=== PATIENT | female | born 1970 | race Caucasian/White ===

== ENCOUNTER 2017-05-01 05:53 | Day surgery (SDC) | payer OTHER, SELFPAY ==
[2017-05-01 06:19] LABS: Internal QC Validated? YES +Cl - CLEAR BKGD; Pregnancy, Urine Negative Negative
[2017-05-01 06:20] LABS: Hematocrit 38.7 % (37-47); Mean Corpuscular Hgb 30.2 pg (27.0-32.0); Mean Corpuscular Volume 97.2 fL (81-99); Mean Platelet Vol. 8.9 fl (6.2-12.0); Platelet Count 328 K/mm3 (150-450); RBC Distribution Width CV 13.4 % (11.6-14.6); RBC Distribution Width SD 47.6 fl (35.1-43.9); Red Blood Count 3.98 M/mm3 (4.2-5.4); White Blood Count 7.2 K/mm3 (4.4-11.0)
[2017-05-01 06:21] LABS: Scan Indicated on CBC? Y/N NO
[2017-05-01 06:56] VITALS: BP 131/83; PULSE 82; RESP 16; TEMP 37.4; O2SAT 100; BMI 35.5
--- NOTE | 2017-05-01 07:30 | EMB_PTH ---
PATIENT: AP LOBATO LOC: [facility] [place] U#:[id number] AGE/SX: 46/F ROOM: RE05/01/[address]: Dr. Pia Prakash MD : 1970 BED: DIS: 05/01/2017 SPEC #: [id number] RECD: 05/01/17 08:41 STATUS: ZOE ALYSSIA #: [id number] JAYLA: 05/01/17 07:[address]: Pia Prakash DEPT: SURGICAL PATHOLOGY RECD BY: Don Naranjo ENTERED: 05/01/17 11:43 SP TYPE: ENDOM BX/C OT DR: Dr. Stephen Black MD Tissues: Endometrium, NOS Procedures: Surgery Specimen Level IV HEADER OPERATION: Hysteroscopy, dilation and curettage PRE-OP DIAGNOSIS: Excessive bleeding in the premenopausal period, thickened endometrium TISSUE SUBMITTED: Endometrial curettings MICROSCOPIC DIAGNOSIS Endometrial curettings: Secretory endometrium. SJ:christiano 05/02/17 MICROSCOPIC DESCRIPTION Slides are reviewed. GROSS DESCRIPTION Received in fixative is one container labeled with the patient's name and designated endometrial curettings. The specimen consists of multiple irregular fragments of pink-miller soft tissue that in aggregate measure 7 x 5 x 0.2 cm. The specimen is totally submitted in four cassettes. / AM:christiano 05/01/17 TC:4 CPT: 19873
--- NOTE | 2017-05-01 08:00 | PCM.DC.D&C ---
Discharge Diet: No Restrictions Discharge Activity: May not drive while taking narcotic pain medications., May Shower, May Take a Tub Bath May resume sexual activity in: 1 week Lifting Restrictions: OK to resume as tolerated Call your doctor if you observe: Fever of 101 or Higher, Inability to have a bowel movement, Using more than one pad per hour, Uncontrolled pain Allergies/Adverse Reactions: Allergies amoxicillin [From Augmentin] Allergy (Verified 04/29/17 14:21) Diarrhea clavulanic acid [From Augmentin] Allergy (Verified 04/29/17 14:21) Diarrhea Medications to take at Discharge Fluticasone 110 Mcg [Flovent 110 Mcg] 2 puff INHALATION BID 02/27/16 Levothyroxine [Synthroid] 175 mcg PO DAILY 02/27/16 Sertraline HCl [Zoloft] 50 mg PO DAILY 02/27/16 fluticasone 50 mcg/actuation nasal spray,suspension 50 mcg INTRANASAL ONCE 04/14/17 Albuterol Inhaler [Ventolin Hfa] 1 - 2 puff INHALATION Q4H PRN PRN 04/29/17 Naproxen 500 mg PO BID PRN 04/29/17 Acetaminophen/Codeine #3 [Tylenol#3] 1 tablet PO Q4H PRN PRN 2 Days #10 tablet 05/01/17 The following prescriptions were given: Acetaminophen/Codeine #3 [Tylenol#3] 1 tablet PO Q4H PRN PRN 2 Days #10 tablet PRN Reason: Mod-Severe Pain (4-10/10) Primary Care Physician: Stephen Black MD [Primary Care Provider] - Please Follow Up With: Pia Prakash MD - [phone] When: 2 wks
--- NOTE | 2017-05-01 08:03 | DCINST_ITS ---
Discharge Diet: No Restrictions Discharge Activity: May not drive while taking narcotic pain medications., May Shower, May Take a Tub Bath May resume sexual activity in: 1 week Lifting Restrictions: OK to resume as tolerated Call your doctor if you observe: Fever of 101 or Higher, Inability to have a bowel movement, Using more than one pad per hour, Uncontrolled pain Allergies/Adverse Reactions: Allergies amoxicillin [From Augmentin] Allergy (Verified 04/29/17 14:21) Diarrhea clavulanic acid [From Augmentin] Allergy (Verified 04/29/17 14:21) Diarrhea Medications to take at Discharge Fluticasone 110 Mcg [Flovent 110 Mcg] 2 puff INHALATION BID 02/27/16 Levothyroxine [Synthroid] 175 mcg PO DAILY 02/27/16 Sertraline HCl [Zoloft] 50 mg PO DAILY 02/27/16 fluticasone 50 mcg/actuation nasal spray,suspension 50 mcg INTRANASAL ONCE 04/14 Albuterol Inhaler [Ventolin Hfa] 1 - 2 puff INHALATION Q4H PRN PRN 04/29/17 Naproxen 500 mg PO BID PRN 04/29/17 Acetaminophen/Codeine #3 [Tylenol#3] 1 tablet PO Q4H PRN PRN 2 Days #10 tablet 05/01/17 The following prescriptions were given: Acetaminophen/Codeine #3 [Tylenol#3] 1 tablet PO Q4H PRN PRN 2 Days #10 tablet PRN Reason: Mod-Severe Pain (4-10/10) Primary Care Physician: Stephen Black MD [Primary Care Provider] - Please Follow Up With: Pia Prakash MD - [phone] When: 2 wks
[2017-05-01 08:06] VITALS: BP 130/75; BP 131/83; PULSE 80; RESP 16; TEMP 36.6; O2SAT 97
[2017-05-01 08:10] VITALS: BP 122/70; BP 131/83; PULSE 78; RESP 16; O2SAT 97
[2017-05-01 08:15] VITALS: BP 131/80; BP 131/83; PULSE 75; RESP 14; O2SAT 95
[2017-05-01 08:20] VITALS: BP 131/83; BP 132/75; PULSE 78; RESP 16; TEMP 36.7; O2SAT 95
[2017-05-01 08:43] VITALS: BP 131/83
--- NOTE | 2017-05-01 18:49 | PCM.OP.BLANK ---
Operative Report Date of Procedure: 05/01/17 PROCEDURE: Hysteroscopy, Dilation and curettage, Possible endometrial polypectomy Preoperative Diagnosis: Abnormal uterine bleeding Thickened endometrial stripe on pelvic ultrasound Postop diagnosis: Abnormal uterine bleeding Thickened endometrial stripe on pelvic ultrasound No endometrial polyp noted Anesthesia: MAC IV sedation Russell Capps MD 10 cc 1% lidocaine paracervical block (Haylee Prakash) Surgeon: Pia Prakash MD EBL: Minimal for case Drains: Red Gomez, minimal clear yellow urine Complications: none Fluids: replacement Findings: Very fluffy appearing appearing endometrium. Neither tubal ostia visualized No polyp noted. No submucous fibroids noted. Narrative account After the R,B,Alternatives of the procedure were reviewed with the patient , informed consent was obtained. The patient was taken to the operating room with an IV running and placed in dorsal supine position of the operating table. She was given MAC IV sedation and repositioned to the dorsal lithotomy position and prepped and draped in the usual sterile fashion. A graves speculum was placed into the vagina and the cervix was brought into view. A paracervical block was then placed: the cervix was instilled with 10 cc of 1% lidocaine using a 20 G spinal needle. A single toothed tenaculum was applied to the anterior lip of the cervix. The uterus sounded to 13 cm and was slightly anteverted. The cervix was sequentially dilated to allow admission of the hysteroscope into the endometrial cavity. The hysteroscopy was performed with findings noted as above. The view was suboptimal due to both fluffy endometrium and technical issue with the scope. There was NO endometrial polyp noted. A sharp curettage was performed and a generous amount of tissue was removed and set aside for later pathology review. Several additional passes were conducted with the sharp curette tip advanced through the cervix to the uterine fundus . Good Crei was noted in all quadrants. The multiple pieces of tissue were set aside for later pathology review. Excellent hemostasis was noted. The single toothed tenaculum was removed from the cervix and a sponge stick was used to remove any remaining tissue and blood from the upper vagina and cervix. The procedure was terminated. The speculum was removed. The patient was returned to dorsal supine position and awakened from IV sedation and transferred to her recovery room bed in stable condition after tolerating the procedure well. Sponge, lap, needle and instrument counts were correct x two. medications given intraoperatively included 10 cc of 1% lidocaine without epinephrine instilled as a paracervical block. Toradol 30 mg IV x one was also given For a complete listing of the medications given intraoperatively, see the anesthesia record.
== END 2017-05-01 09:14 | disposition home or self-care (01) ==
LOC: SDC 05:53 → AC 05:54
PROVIDERS: Anesthesiology; Family Provider Family Medicine; PCP Family Medicine; Visit Provider Obstetrics & Gynecology
PROC: 0UDB8ZZ Extraction of Endometrium, Via Natural or Artificial Opening Endoscopic (ICD-10-PCS; CPT 58558; principal; 2017-05-01 07:20)
DX: N85.8 Other specified noninflammatory disorders of uterus (principal); N93.9 Abnormal uterine and vaginal bleeding, unspecified; N92.4 Excessive bleeding in the premenopausal period; R93.8 Abnormal findings on diagnostic imaging of other specified body structures; E03.9 Hypothyroidism, unspecified; E22.1 Hyperprolactinemia; D35.2 Benign neoplasm of pituitary gland; J45.909 Unspecified asthma, uncomplicated; F41.9 Anxiety disorder, unspecified; K76.89 Other specified diseases of liver; Z79.899 Other long term (current) drug therapy; Z85.820 Personal history of malignant melanoma of skin
CPT/HCPCS: 00952; 58558; 36415; 81025; 85027; 88305; J3010; J7120; J2405

== ENCOUNTER → 2017-09-25 16:53 | Outpatient (CLI) | payer OTHER, SELFPAY ==
[2017-09-25 17:45] LABS: Absolute Lymphocyte Count 2.89 X10^3/ul (0.83-4.51); Absolute Neutrophil Count 3.4 X10^3/uL (2.0-7.7); Basophil# 0.02 X10^3/uL; Basophil% 0.3 % (0-1); Eosinophil# 0.22 X10^3/uL; Eosinophils% 3.2 % (0-5); Hematocrit 40.5 % (37-47); Hemoglobin 12.7 g/dl (12.0-15.0); Lymphocyte # 2.89 X10^3/ul; Lymphocyte % 42.1 % (19-41); Mean Corp Hgb Conc 31.4 g/gl (32-36); Mean Corpuscular Hgb 30.5 pg (27.0-32.0); Mean Corpuscular Volume 97.1 fL (81-99); Mean Platelet Vol. 9.1 fl (6.2-12.0); Monocyte% 4.4 % (0-10); Neutrophil # 3.42 X10^3/uL (2.7-7.7); Neutrophil % 49.9 % (47-70); Platelet Count 310 K/mm3 (150-450); RBC Distribution Width CV 13.8 % (11.6-14.6); RBC Distribution Width SD 49.1 fl (35.1-43.9); Red Blood Count 4.17 M/mm3 (4.2-5.4); White Blood Count 6.9 K/mm3 (4.4-11.0)
[2017-09-25 17:53] LABS: Color, Urine Yellow (Yellow); Glucose, Dipstick Normal (Normal); Ketone-Dipstick Negative (Negative); Leukocyte Esterase-Dipstick 25 /ul (Negative); Nitrite-Dipstick Negative (Negative); Occult Blood-Urine Negative /ul (Negative); Protein-Dipstick 15 mg/dl (Negative); Urine Bilirubin Dipstick Negative (Negative); Urine Clarity Clear (Clear); Urine Urobilinogen Normal (Normal)
[2017-09-25 18:10] LABS: COTININE Drug Screen Negative (<200 ng/mL)
[2017-09-25 18:20] LABS: ALB/GLOB Ratio 0.9 RATIO (0.9-2.4); AST(SGOT) 19 U/L (15-37); Alanine Aminotransfer ALT/SGPT 27 U/L (13-56); Albumin, Serum 3.8 g/dL (3.2-5.0); Alkaline Phosphatase 51 U/L (45-117); Anion Gap 6 (5-15); BUN 10 mg/dL (7-18); BUN/Creat Ratio 10.1 RATIO (10-20); Bilirubin, Direct 0.09 mg/dL (0.00-0.30); Calcium,Total 8.8 mg/dL (8.5-10.1); Chloride 106 mmol/L (98-107); Cholesterol 249 mg/dL (200); Creatinine, Serum 0.99 mg/dL (0.55-1.02); EST Glomerular Filtration Rate 63 mL/min (>60); Est Glom Filt Rate - Afr Amer 76 mL/min (>60); Globulin 4.2 g/dL (2.2-4.2); Glucose 86 mg/dL (74-106); High Density Lipoprotein 44 mg/dL; LDH 207 U/L (84-246); Phosphorus 3.2 mg/dL (2.5-4.9); Potassium 3.7 mmol/L (3.5-5.1); Sodium Level 141 mmol/L (136-145); Triglycerides 237 mg/dL; Uric Acid 5.7 mg/dL (2.6-6.0); Very Low Density Lipoprotein 47 mg/dL (5-40)
[2017-09-27 17:09] LABS: T4 Total, Thyroxin 2.7 ug/dL (4.8-13.9); Thyroid Stim Hormone (TSH) > 500.00 uIU/mL (0.358-3.74)
== END ==
LOC: LAB.FUTURE 16:55 → MTLAB 16:56
PROVIDERS: Family Provider Family Medicine; PCP Family Medicine; Visit Provider Nurse Practitioner Primary Care
DX: E03.9 Hypothyroidism, unspecified (principal)
CPT/HCPCS: 80307; 84436; 84443

== ENCOUNTER → 2018-07-16 14:46 | Outpatient (CLI) | payer OTHER, SELFPAY ==
--- NOTE | 2018-07-16 04:30 | LES_PTH ---
PATIENT: AP LOBATO LOC: [facility] U#:[id number] AGE/SX: 54/F ROOM: RE07/16/[address]: Dr. Gallo Gonzalez MD : 1970 BED: DIS: SPEC #: [id number] RECD: 07/17/18 09:54 STATUS: ZOE ALYSSIA #: [id number] JAYLA: 07/16/18 04:[address]: Gallo Gonzalez DEPT: SURGICAL PATHOLOGY RECD BY: Chelsea Damian ENTERED: 07/17/18 15:03 SP TYPE: Lesion OTHR DR: Dr. Stephen Black MD Tissues: Skin of eyelid, NOS Procedures: Surgery Specimen Level IV HEADER OPERATION: Removal of lesion FAMILIA PRE-OP DIAGNOSIS: Enlarging x2 years; possible cyst or chronic chalazion TISSUE SUBMITTED: Lateral left upper eyelid lesion MICROSCOPIC DIAGNOSIS Skin lesion left lateral upper eyelid, biopsy: Polypoid fragment of benign squamous mucosa with mild chronic folliculitis and minimal reactive fibrosis of dermis. See comment. AM:christiano 07/22/18 COMMENT There is no evidence of malignancy. Clinical correlation is suggested. MICROSCOPIC DESCRIPTION Slides are reviewed. GROSS DESCRIPTION Received in fixative is one container labeled with the patient's name and designated lateral left upper eyelid lesion. The specimen consists of a brown fragment of soft tissue/possible skin measuring 0.2 x 0.2 x 0.1 cm. The specimen is totally submitted in one cassette. / CE:christiano 07/17/18 TC:5 CPT: 32635
== END ==
PROVIDERS: Family Provider Family Medicine; PCP Family Medicine; Visit Provider Ophthalmology
DX: H02.9 Unspecified disorder of eyelid (principal)
CPT/HCPCS: 88305

== ENCOUNTER 2018-09-07 19:27 | Emergency (ER) | payer OTHER, SELFPAY ==
[2018-09-07 19:28] VITALS: BP 142/92; PULSE 89; RESP 17; RESP 18; TEMP 36.2; O2SAT 97; O2SAT 98; BMI 34.4
--- NOTE | 2018-09-07 19:47 | ED.DCSUM_ITS ---
- ER Visit Summary Date of Service: 09/07/18 Chief Complaint: Left shoulder pain. History of Present Illness: The patient is a 48 F history of asthma, hypothyroidism and chronic intermittent left shoulder pain from impingement syndrome. She has had this for years. She had physical therapy before. She seen orthopedics before for this. Has been doing well but today she is noticed discomfort. She is left-hand dominant. At times that flares this up. No exertional chest pain no shortness of breath. Physical Examination: Well-appearing middle-aged female. No acute distress. Vital signs are stable afebrile. HEENT exam unremarkable. Neck nontender. Lungs clear to auscultation bilaterally. Heart regular rhythm no murmur. Abdomen soft nontender. Normal bowel sounds no peritoneal signs. Extremities moves all 4. Neurovascular intact. Out of 5 site auditor strength bilaterally. Strong radial pulse on the left. She has full range of motion left shoulder, elbow and wrist. This area. There is no ecchymosis or bruising. No signs of trauma. No redness or warmth. No signs of a rotator cuff injury. No bony deformity. No swelling. Neurologic exam normal. Test Results: None. She has had prior x-rays. Emergency Department Course and Treatment: Patient really just wants something to help her with her discomfort so she can go back to work. Treated with IM Toradol. Treatment Plan: Motrin for pain and inflammation. Follow-up with orthopedics. Disposition: Discharge Impression: Acute on chronic left shoulder pain history of impingement syndrome This note was generated with [employer] dictation software. It may contain incorrect words, spelling, and punctuation that were not noted in review of the chart prior to signing ED Disposition - Plan for ED Patient: Referrals: Stephen Black MD [Primary Care Provider] -
--- NOTE | 2018-09-07 19:50 | ED.DEP ---
ED Disposition - Plan for ED Patient: Disposition: Home or Assisted Living Referrals: Rachel Melvin DO [STAFF PHYSICIAN] - 1 Week if not improving Additional Instructions: Motrin for pain and inflammation. Follow-up with orthopedic physician.
[2018-09-07] MEDS: Ketorolac 60 MG/2 ML Vial IM (20:02)
[2018-09-07 20:28] VITALS: RESP 16
== END 2018-09-07 20:29 | disposition home or self-care (01) ==
PROVIDERS: Emergency Provider Emergency Medicine; Family Provider Family Medicine; PCP Family Medicine
DX: M25.512 Pain in left shoulder (principal); G89.29 Other chronic pain; M75.42 Impingement syndrome of left shoulder; J45.909 Unspecified asthma, uncomplicated; E03.9 Hypothyroidism, unspecified; Z79.899 Other long term (current) drug therapy
CPT/HCPCS: 96372; 99282

== ENCOUNTER → 2018-09-10 10:05 | Outpatient (CLI) | payer OTHER, SELFPAY ==
[2018-09-10 10:00] VITALS: BMI 34.4
--- NOTE | 2018-09-10 10:07 | RAD_ITS ---
STUDY: X-RAY - CERVICAL SPINE REASON FOR EXAM: Female, 48 years old. Shoulder pain TECHNIQUE: 6 view(s) of the cervical spine were obtained. COMPARISON: None FINDINGS: Normal anterior atlantoaxial articulation. Normal odontoid process. Normal cervical lordosis. Normal vertebral bodies and endplates. Normal disc space heights. Normal visualized intervertebral neuroforamina. The soft tissue structures are unremarkable. RAD/Cerv Spine 4 or 5 Views IMPRESSION: Normal x-ray examination of the visualized cervical spine. Electronically Signed: Ayo Waters MD at 23:21 EDT , Service support ,
--- NOTE | 2018-09-10 10:07 | RAD_ITS ---
STUDY: X-RAY - LEFT SHOULDER REASON FOR EXAM: Female, 48 years old. Left shoulder pain TECHNIQUE: 4 view(s) of the shoulder. COMPARISON: February 27, 2016 FINDINGS: Normal glenohumeral articulation. Normal acromioclavicular joint. Normal acromion. Normal humeral head and visualized proximal humerus. The soft tissue structures are unremarkable. Normal visualized pulmonary apex. RAD/Shoulder min 2 Views IMPRESSION: Normal x-ray examination of the shoulder. Electronically Signed: Ayo Waters MD at 23:23 EDT , Service support ,
== END ==
PROVIDERS: Family Provider Family Medicine; PCP Family Medicine; Referring Provider Orthopaedic Surgery; Visit Provider Orthopaedic Surgery
DX: M25.512 Pain in left shoulder (principal); M54.2 Cervicalgia
CPT/HCPCS: 72050; 73030

== ENCOUNTER → 2018-11-18 11:44 | Outpatient (CLI) | payer OTHER, SELFPAY ==
[2018-09-10 10:00] VITALS: BMI 34.4
[2018-11-18 13:55] LABS: Color, Urine Yellow (Yellow); Glucose, Dipstick Normal (Normal); Ketone-Dipstick 5 mg/dl (Negative); Leukocyte Esterase-Dipstick 25 /ul (Negative); Nitrite-Dipstick Negative (Negative); Occult Blood-Urine 10 /ul (Negative); Protein-Dipstick Negative (Negative); Urine Bilirubin Dipstick Negative (Negative); Urine Clarity Clear (Clear); Urine Urobilinogen Normal (Normal)
[2018-11-18 13:57] LABS: Absolute Lymphocyte Count 3.32 X10^3/uL (0.83-4.51); Absolute Neutrophil Count 3.9 X10^3/uL (2.0-7.7); Basophil# 0.03 X10^3/uL; Basophil% 0.4 % (0-1); Eosinophils% 2.5 % (0-5); Hematocrit 41.5 % (37-47); Hemoglobin 13.3 g/dL (12.0-15.0); Lymphocyte # 3.32 X10^3/ul; Lymphocyte % 41.9 % (19-41); Mean Corpuscular Hgb 31.8 pg (27.0-32.0); Mean Corpuscular Volume 99.3 fL (81-99); Mean Platelet Vol. 9.2 fl (6.2-12.0); Monocyte# 0.44 X10^3/uL; Monocyte% 5.6 % (0-10); NRBC Flagged by Analyzer 0 % (0-5); Neutrophil % 49.2 % (47-70); Platelet Count 299 K/mm3 (150-450); RBC Distribution Width CV 12.3 % (11.6-14.6); RBC Distribution Width SD 45.4 fl (35.1-43.9); Red Blood Count 4.18 M/mm3 (4.2-5.4); White Blood Count 7.9 K/mm3 (4.4-11.0)
[2018-11-18 14:16] LABS: ALB/GLOB Ratio 0.9 RATIO (0.9-2.4); AST(SGOT) 17 U/L (15-37); Alanine Aminotransfer ALT/SGPT 33 U/L (13-56); Albumin, Serum 3.6 g/dL (3.2-5.0); Alkaline Phosphatase 55 U/L (45-117); Anion Gap 7 (5-15); BUN 13 mg/dL (7-18); Bilirubin, Direct 0.07 mg/dL (0.00-0.30); Calcium,Total 9.1 mg/dL (8.5-10.1); Chloride 106 mmol/L (98-107); Cholesterol 252 mg/dL (200); Creatinine, Serum 0.93 mg/dL (0.55-1.02); EST Glomerular Filtration Rate 68 mL/min (>60); Est Glom Filt Rate - Afr Amer 82 mL/min (>60); Globulin 4.1 g/dL (2.2-4.2); Glucose 87 mg/dL (74-106); High Density Lipoprotein 50 mg/dL; LDH 197 U/L (84-246); Phosphorus 3.5 mg/dL (2.5-4.9); Potassium 3.9 mmol/L (3.5-5.1); Protein, Total 7.7 g/dL (6.4-8.2); Sodium Level 141 mmol/L (136-145); Triglycerides 198 mg/dL; Uric Acid 5.9 mg/dL (2.6-6.0); Very Low Density Lipoprotein 40 mg/dL (5-40)
[2018-11-18 15:30] LABS: Cholesterol 254 mg/dL (200); Glucose 86 mg/dL (74-106); High Density Lipoprotein 50 mg/dL; Triglycerides 201 mg/dL; Very Low Density Lipoprotein 40 mg/dL (5-40)
== END ==
PROVIDERS: Family Provider Family Medicine; PCP Family Medicine; Referring Provider Family Medicine; Visit Provider Family Medicine
DX: Z00.00 Encounter for general adult medical examination without abnormal findings (principal); E03.9 Hypothyroidism, unspecified; E78.5 Hyperlipidemia, unspecified
CPT/HCPCS: 36415; 80061; 82784; 82947; 83516; 84443; 84550; 86255

== ENCOUNTER 2018-11-28 12:30 | Outpatient (RCR) | payer OTHER, SELFPAY ==
[2018-09-10 10:00] VITALS: BMI 34.4
--- NOTE | 2018-09-19 08:28 | HP.PTEVAL_ITS ---
Patient's Visit Information AP LOBATO is a 48 year old F referred to Physical Therapy by Terrence Taylor DO with a diagnosis of facet arthritis. Date of Evaluation: 09/19/18 Physical Therapist: Mehrdad Copeland, PT, ATC - Visit Plan Frequency: 2x /Week Duration: 4-6 Weeks Plan: Postural edu, DTR to L trap, scap stab ex's, UBE, and HEP - Subjective Findings: Pt reports she has had L shoulder pain intermittently for the past 2 years. Pt reports this episode originated 6 weeks ago and has been really bad. Pt reports she had xrays of her neck which revealed OA in her neck. Pt reports she also had xrays of her L shoulder which revealed no significant findings. Pt reports her pain is worst when she is working and as the day goes on. 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 Pt notes she is L hand dominant. No L UE tingling or numbness when her pain occurs. Pt reports her pain is located in the L shoulder and transverses upwards toward her L trap and anterior chest. 5/10 pain at rest. 10/10 when pain is at its worst. no sleep difficulty secondary to pain. - Pain L shoulder Pain Intensity (Out of 10): 5 Pain Intensity Range: 10 - Objective Neuro: B UE sensation is WNL to light touch. B bicepital reflex= 2/3. Palpation: Minor guarding throughout L C/S. Pain throughout L upper trap. No obvious deformity. ROM: R shoulder flex= 155, abd= 165, ER= 70, IR WNL; L shoulder flex= 125, abd= 85, ER= 70, IR WNL. C/S ROM: B SB is minimally limited. All other ranges are WNL. Repeated movements: repeated protraction in sitting 10x2 had NE. Repeated retraction in sitting 10x2 NE. Special tests: All cervical spine tests are negative. MMT: L shoulder flex and abd are 4+/5. All other B slhoulder MMT is 5/5 throughout. - Goals Goal 1:: Decrease R shoulder pain x 50% to aid with work tolerance Goal Time Frame: 4-6 Weeks Goal 2:: Display proper posture both verbally and physically to prevent future episodes of L shoulder pain. Goal Time Frame: 4-6 Weeks Goal 3:: I with HEP Goal Time Frame: 4-6 Weeks - Rehabilitation Potential Physical Therapy Diagnosis: Pt has L upper trap pain and limited L shoulder ROM secondary to poor posture Rehabilitation Potential: Good - Anticipated Interventions Patient/Client Instruction: Educate patient on: Condition, Plan of Care For the Purpose of:: To improve self management Therapeutic Exercise to Include: Strength training, Body mechanics, Postural training, Scapular Strength/Stabilization For the Purpose of:: To decrease pain, To increase ROM, To improve muscle perfo rmance and motor function Manual Therapy Techniques to Include: Soft tissue mobilization For the Purpose of:: To decrease pain Thank you for the opportunity to evaluate your patient. For Medicare and Medicare HMO plans, please review the plan of care and approve it. It will need to be FAXED BACK to us at [phone] for Medicare purposes. For Medicare only, by signing this I certify the plan of care. Please let me know if there are questions or concerns regarding this plan of care. Physician S ignature: Date:
--- NOTE | 2018-11-28 13:04 | HP.PTDCSUM ---
HP - PT D/C Summary It has been my pleasure to treat AP LOBATO under orders from Terrence Taylor DO, for the diagnosis of facet arthritis for a total of 8 visit(s). Discharge Date: Please see the following information for a summary of their discharge status. - Subjective Subjective: Pt reports she feels ready for discharge. No pain - Pain L shoulder Pain Intensity (Out of 10): 0 - Overall Improvement % Improvement: 95 - Objective Objective/Function: L shoulder pain 0/10. Pt is now both physically and verbally aware of posture. I with HEP. Rx goals achieved - Goals Goal 1:: Decrease L shoulder pain x 50% to aid with work tolerance Goal Progress: Goal Met Goal 2:: Display proper posture both verbally and physically to prevent future episodes of L shoulder pain. Goal Progress: Goal Met Goal 3:: I with HEP Goal Progress: Goal Met - Plan Plan: Discharge - D/C Information If there are questions or concerns regarding this patient's physical therapy, please feel free to call me at [phone]. Thank you for the referral of this patient. Sincerely, Mehrdad Copeland, PT, ATC
== END 2018-11-28 14:48 | disposition home or self-care (01) ==
LOC: PT 12:30
PROVIDERS: Family Provider Family Medicine; PCP Family Medicine; Visit Provider Orthopaedic Surgery
DX: M19.90 Unspecified osteoarthritis, unspecified site (principal)
CPT/HCPCS: 97035; 97110; 97161; 97530

== ENCOUNTER → 2019-03-13 10:23 | Outpatient (CLI) | payer OTHER, SELFPAY ==
[2018-09-10 10:00] VITALS: BMI 34.4
[2019-03-13 15:17] LABS: Prolactin 97.8 ng/mL; Thyroid Stim Hormone (TSH) 5.16 uIU/mL (0.358-3.74)
== END ==
PROVIDERS: Family Provider Family Medicine; PCP Family Medicine; Referring Provider Family Medicine; Visit Provider Family Medicine
DX: E22.1 Hyperprolactinemia (principal); E03.9 Hypothyroidism, unspecified
CPT/HCPCS: 36415; 84146; 84443

== ENCOUNTER → 2019-07-16 14:20 | Outpatient (CLI) | payer OTHER, SELFPAY ==
[2019-05-19 09:55] VITALS: BMI 34.4
[2019-07-16 18:13] LABS: Cholesterol 194 mg/dL (200); Follicle Stimulating Hormone 0.5 mIU/mL; High Density Lipoprotein 55 mg/dL; Luteinizing Hormone < 0.2 mIU/mL; Prolactin 113.6 ng/mL; T4 Free Direct 1.08 ng/dL (0.76-1.46); Thyroid Stim Hormone (TSH) 0.76 uIU/mL (0.358-3.74); Triglycerides 141 mg/dL; Very Low Density Lipoprotein 28 mg/dL (5-40)
[2019-07-16 18:42] LABS: Hemoglobin A1c 5.1 % (3.8-5.6)
== END ==
PROVIDERS: PCP Family Medicine; Referring Provider Internal Medicine Endocrinology, Diabetes & Metabolism; Visit Provider Internal Medicine Endocrinology, Diabetes & Metabolism
DX: E03.8 Other specified hypothyroidism (principal); E06.3 Autoimmune thyroiditis; E22.1 Hyperprolactinemia; E78.2 Mixed hyperlipidemia; N91.2 Amenorrhea, unspecified
CPT/HCPCS: 36415; 80061; 83001; 83002; 83036; 84146; 84439; 84443

== ENCOUNTER → 2020-03-24 14:28 | Outpatient (CLI) | payer OTHER, SELFPAY ==
[2019-05-19 09:55] VITALS: BMI 34.4
[2020-03-24 18:12] LABS: Prolactin 15.3 ng/mL; T4 Free Direct 1.11 ng/dL (0.76-1.46); Thyroid Stim Hormone (TSH) 1.34 uIU/mL (0.358-3.74)
== END ==
PROVIDERS: PCP Family Medicine; Referring Provider Internal Medicine Endocrinology, Diabetes & Metabolism; Visit Provider Internal Medicine Endocrinology, Diabetes & Metabolism
DX: E03.8 Other specified hypothyroidism (principal); E06.3 Autoimmune thyroiditis; E22.1 Hyperprolactinemia
CPT/HCPCS: 36415; 84146; 84439; 84443

== ENCOUNTER → 2020-09-09 | Outpatient (CLI) | payer OTHER, SELFPAY ==
[2020-03-25 11:47] VITALS: BMI 35.4
--- NOTE | 2020-09-08 16:10 | LES_PTH ---
PATIENT: AP LOBATO LOC: [facility] U#:[id number] AGE/SX: 50/F ROOM: RE09/09/[address]: Dr. Gallo Gonzalez MD : 1970 BED: DIS: 09/09/2020 SPEC #: [id number] RECD: 09/09/20 10:07 STATUS: ZOE RELeo #: [id number] JAYLA: 09/08/20 16:[address]: Gallo Gonzalez DEPT: SURGICAL PATHOLOGY RECD BY: Sondra Hardy ENTERED: 09/09/20 11:41 SP TYPE: Lesion OTHR DR: Dr. Stephen Black MD Tissues: Skin, NOS Procedures: Surgery Specimen Level IV HEADER OPERATION: Left lateral canthus lesion excision PRE-OP DIAGNOSIS: Left lateral canthus lesion TISSUE SUBMITTED: Left lateral canthus lesion MICROSCOPIC DIAGNOSIS Left lateral canthus lesion, biopsy: Consistent with benign eccrine cystoma. AM:christiano 09/12/2020 MICROSCOPIC DESCRIPTION Slides are reviewed. GROSS DESCRIPTION Received in fixative is one container labeled with the patient's name and designated left lateral canthus. The specimen consists of a piece of skin measuring 0.5 x 0.2 x 0.2 cm. The entire specimen is submitted in one cassette. / TIAN:christiano 09/09/20 TC:5 CPT: 39867
== END | disposition home or self-care (01) ==
LOC: LABSPEC 10:19
PROVIDERS: PCP Family Medicine; Visit Provider Ophthalmology
DX: L98.9 Disorder of the skin and subcutaneous tissue, unspecified (principal)
CPT/HCPCS: 88305

== ENCOUNTER → 2020-12-02 10:55 | Outpatient (CLI) | payer OTHER, SELFPAY ==
[2020-12-02 14:16] LABS: Prolactin 69.3 ng/mL; T4 Free Direct 1.25 ng/dL (0.76-1.46); Thyroid Stim Hormone (TSH) 0.27 uIU/mL (0.358-3.74)
== END ==
PROVIDERS: PCP Family Medicine; Referring Provider Internal Medicine Endocrinology, Diabetes & Metabolism; Visit Provider Internal Medicine Endocrinology, Diabetes & Metabolism
DX: E03.8 Other specified hypothyroidism (principal); E06.3 Autoimmune thyroiditis; E22.1 Hyperprolactinemia
CPT/HCPCS: 36415; 84146; 84439; 84443

== ENCOUNTER 2021-05-15 10:52 | Outpatient (CLI) | payer OTHER, SELFPAY ==
--- NOTE | 2021-05-15 10:55 | BI_ITS ---
MAMMOGRAPHY - BILATERAL SCREENING REASON FOR EXAM: Female, 50 years old. Routine annual screening examination. PERTINENT HISTORY: Non-contributory. TECHNIQUE: Digital bilateral breast andrade (3D mammographic acquisition) in the CC and MLO projections. 2-D mediolateral oblique (MLO) and craniocaudad (CC) views of both breasts were obtained. CAD: Full Field Digital Mammography with Computer Added Detection was performed. COMPARISON: Comparison is made with prior study of 10/31/2012. FINDINGS: Breast Composition: There are scattered areas of fibroglandular density. There are no dominant masses or suspicious calcifications. No other significant abnormalities are identified. There has been no significant change since the prior study. BI/SCRN MAMM (CAD)W/ANDRADE BILAT IMPRESSION: Stable bilateral screening mammogram. Yearly follow-up mammogram recommended. (A) ASSESSMENT CATEGORY: BIRADS Category 1: Negative. A letter regarding these results will be sent to the patient by the facility within 30 days. Approximately 10% of breast cancers are not detected by mammography. A normal mammogram should not delay biopsy of a clinically suspicious abnormality. [id number] Electronically Signed: Albino Ennis MD at 11:57 EDT ,
[2021-05-15 12:47] LABS: Prolactin 29.2 ng/mL
== END 2021-05-15 23:59 | disposition home or self-care (01) ==
LOC: OPBI 10:53 → LAB 11:29
PROVIDERS: PCP Family Medicine; Visit Provider Nurse Practitioner Family
DX: E22.1 Hyperprolactinemia (principal); Z12.31 Encounter for screening mammogram for malignant neoplasm of breast
CPT/HCPCS: 36415; 77063; 77067; 84146

== ENCOUNTER → 2021-08-24 | Outpatient (CLI) | payer OTHER, SELFPAY ==
[2021-08-24 17:54] LABS: Hematocrit 38.6 % (37-47); Mean Corp Hgb Conc 31.1 g/dL (32-36); Mean Corpuscular Hgb 29.5 pg (27.0-32.0); Mean Corpuscular Volume 94.8 fL (81-99); Mean Platelet Vol. 9.8 fl (6.2-12.0); Platelet Count 323 K/mm3 (150-450); RBC Distribution Width CV 12.6 % (11.6-14.6); RBC Distribution Width SD 43.8 fl (35.1-43.9); Red Blood Count 4.07 M/mm3 (4.2-5.4); White Blood Count 7.1 K/mm3 (4.4-11.0)
== END | disposition home or self-care (01) ==
LOC: MTLAB 15:51
PROVIDERS: PCP Family Medicine; Referring Provider Preventive Medicine Occupational Medicine; Visit Provider Preventive Medicine Occupational Medicine
DX: N92.0 Excessive and frequent menstruation with regular cycle (principal)
CPT/HCPCS: 36415; 85027

== ENCOUNTER → 2021-09-07 | Outpatient (CLI) | payer OTHER, SELFPAY ==
--- NOTE | 2021-09-07 | EMB_PTH ---
PATIENT: AP LOBATO LOC: [facility] U#:[id number] AGE/SX: 51/F ROOM: RE09/07/[address]: Dr. Neris Ayala MD : 1970 BED: DIS: 09/07/2021 SPEC #: [id number] RECD: 09/07/21 13:38 STATUS: ZOE RELeo #: [id number] JAYLA: 09/07/21 00:[address]: Neris Ayala DEPT: SURGICAL PATHOLOGY RECD BY: Sondra Hardy ENTERED: 09/07/21 13:49 SP TYPE: ENDOM BX/C ANGELIQUE DR: Dr. Stephen Black MD Tissues: Endometrium, NOS Procedures: Surgery Specimen Level IV HEADER OPERATION: Endometrial biopsy PRE-OP DIAGNOSIS: Abnormal uterine bleeding TISSUE SUBMITTED: Endometrial biopsy MICROSCOPIC DIAGNOSIS Endometrium, biopsy: Disordered proliferative endometrium. AM:christiano 09/08/2021 COMMENT Case has been reviewed in consultation with Dr. Motley who concurs with the above diagnosis. IDC:[email or web address] MICROSCOPIC DESCRIPTION Slides are reviewed. GROSS DESCRIPTION Received is one container labeled with the patient's name and not further designated. The specimen consists of multiple irregular fragments of miller-pink soft tissue mixed with mucoid tissue that in aggregate measure 3 x 2.5 x 0.2 cm. The specimen is totally submitted in one cassette. / Yesica 09/07/2021 TC:5 CPT: 36301
== END | disposition home or self-care (01) ==
LOC: LABSPEC 13:40
PROVIDERS: PCP Family Medicine; Referring Provider Obstetrics & Gynecology; Visit Provider Obstetrics & Gynecology
DX: N93.9 Abnormal uterine and vaginal bleeding, unspecified (principal)
CPT/HCPCS: 88305

== ENCOUNTER → 2021-09-13 | Outpatient (CLI) | payer OTHER, SELFPAY ==
--- NOTE | 2021-09-13 07:53 | US_ITS ---
STUDY: ULTRASOUND OF THE FEMALE PELVIS - COMPLETE REASON FOR EXAM: Female, 51 years old. Abnormal uterine bleeding. History of ectopic 2001. History of DTC in 1988 and 2018. LMP: 08/09/2021. TECHNIQUE: Transabdominal and Transvaginal TECHNICAL QUALITY: Examination limited by bowel gas. COMPARISON: None. FINDINGS: The uterus is anteverted and is in a midline position. The uterus measures 10.1 x 7.1 x 6.2 cm. There is a Nabothian cyst of the cervix. The endometrium measures 13 mm in thickness, and is hyperechoic. There is no demonstrated endometrial mass. There is an irregularity of the anterior subserosal surface of the fundus measuring 2.6 x 2.1 x 1.6 cm which may represent a subserosal fibroid. I.U.D. - The patient does not have an I.U.D. The right ovary is visualized. The right ovary measures 3.3 x 4.8 x 3.1 cm. There is a 2.4 x 2.3 x 1.5 cm simple cyst as well as a 1.3 x 3.0 x 1.0 cm cyst. There is no visualized right adnexal mass or complex lesion. There is normal arterial and normal venous vascularity. The left ovary is not visualized. There is no left ovarian cyst or ovarian mass. There is no visualized left adnexal mass or complex lesion. There is no fluid in the cul-de-sac. The pre void volume of the bladder was ml. The post void volume of the bladder was ml. Polycystic ovary disease: No. US/Pelvic (Non ) IMPRESSION: 1. Prominent endometrium without mass. 2. Question anterior fundal subserosal fibroid. 3. Multiple simple cysts in the right ovary. 4. The left ovary was obscured by bowel gas. Electronically Signed: Bassem Coburn DO at 12:51 EDT ,
--- NOTE | 2021-09-13 07:53 | US_ITS ---
STUDY: ULTRASOUND OF THE FEMALE PELVIS - COMPLETE REASON FOR EXAM: Female, 51 years old. Abnormal uterine bleeding. History of ectopic 2001. History of DTC in 1988 and 2018. LMP: 08/09/2021. TECHNIQUE: Transabdominal and Transvaginal TECHNICAL QUALITY: Examination limited by bowel gas. COMPARISON: None. FINDINGS: The uterus is anteverted and is in a midline position. The uterus measures 10.1 x 7.1 x 6.2 cm. There is a Nabothian cyst of the cervix. The endometrium measures 13 mm in thickness, and is hyperechoic. There is no demonstrated endometrial mass. There is an irregularity of the anterior subserosal surface of the fundus measuring 2.6 x 2.1 x 1.6 cm which may represent a subserosal fibroid. I.U.D. - The patient does not have an I.U.D. The right ovary is visualized. The right ovary measures 3.3 x 4.8 x 3.1 cm. There is a 2.4 x 2.3 x 1.5 cm simple cyst as well as a 1.3 x 3.0 x 1.0 cm cyst. There is no visualized right adnexal mass or complex lesion. There is normal arterial and normal venous vascularity. The left ovary is not visualized. There is no left ovarian cyst or ovarian mass. There is no visualized left adnexal mass or complex lesion. There is no fluid in the cul-de-sac. The pre void volume of the bladder was ml. The post void volume of the bladder was ml. Polycystic ovary disease: No. US/Transvaginal Non- IMPRESSION: 1. Prominent endometrium without mass. 2. Question anterior fundal subserosal fibroid. 3. Multiple simple cysts in the right ovary. 4. The left ovary was obscured by bowel gas. Electronically Signed: Bassem Coburn DO at 12:51 EDT ,
== END | disposition home or self-care (01) ==
LOC: US 07:51
PROVIDERS: PCP Family Medicine; Referring Provider Obstetrics & Gynecology; Visit Provider Obstetrics & Gynecology
DX: N93.9 Abnormal uterine and vaginal bleeding, unspecified (principal); N83.291 Other ovarian cyst, right side
CPT/HCPCS: 76830; 76856

== ENCOUNTER → 2021-12-18 | Outpatient (CLI) | payer OTHER, SELFPAY ==
[2021-12-18 19:42] LABS: Prolactin 16.6 ng/mL; T4 Free Direct 1.67 ng/dL (0.76-1.46); Thyroid Stim Hormone (TSH) 0.04 uIU/mL (0.358-3.74)
== END | disposition home or self-care (01) ==
PROVIDERS: PCP Nurse Practitioner Primary Care; Referring Provider Nurse Practitioner Family; Visit Provider Nurse Practitioner Family
DX: E22.1 Hyperprolactinemia (principal); E03.8 Other specified hypothyroidism; E06.3 Autoimmune thyroiditis
CPT/HCPCS: 36415; 84146; 84439; 84443

== ENCOUNTER 2022-02-20 07:56 | Day surgery (SDC) | payer OTHER, SELFPAY ==
--- NOTE | 2022-02-09 16:37 | PCM.HP.BLA ---
History and Physical Date of Admission: 02/20/22 Intake Vital Signs ? 09/07/2210:40 02/09/2208:24 02/09/2208:25 Height 1.7 m 1.7 m 1.7 m Weight: ? 107.955 kg ? BMI ? 37.3 ? BP ? 144/82 H ? 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 Is patient in pain?: No Allergies shellfish derived Allergy (Verified 06/08/21 10:08) Angioedemaamoxicillin [From Augmentin] Adverse Reaction (Verified 06/08/21 10:08) Diarrheaclavulanic acid [From Augmentin] Adverse Reaction (Verified 06/08/21 10:08) Diarrhea Medications fluticasone propionate 50 mcg/actuation nasal spray,suspension 50 mcg intranasal ONCE 04/14/17 [History Confirmed 02/08/22] albuterol sulfate 90 mcg/actuation aerosol inhaler 1 - 2 puff inhalation Q4H PRN PRN Wheezing 04/29/17 [History Confirmed 02/08/22] fluticasone propionate 230 mcg-salmeterol 21 mcg/actuation HFA inhaler (Advair HFA) 2 puff inhalation BID 05/19/19 [History Confirmed 02/08/22] omeprazole magnesium 20 mg tablet,delayed release (Prilosec OTC) 20 mg PO DAILY 05/19/19 [History Confirmed 02/08/22] cabergoline 0.5 mg tablet 0.5 mg PO .weekly #12 tabs 12/19/21 [Rx Confirmed 02/08/22] levothyroxine 150 mcg tablet 150 mcg PO DAILY #90 tabs 12/19/21 [Rx Confirmed 02/08/22] Is last menstrual period known: No Post menopausal: No Patient : No : No PFSH Medical History?(Updated 02/08/22 @ 08:[address] Neris Ayala MD) Arthrosis of multiple sites Asthma Female fertility problems Hay fever Hyperlipidemia Hyperprolactinemia Hypothyroidism Shoulder pain Status post hysteroscopy Stroke Surgical History?(Updated 02/08/22 @ 08:[address] Neris Ayala MD) Glomus tumor Hx of cholecystectomy S/P laparoscopy Family History? Other A-fib Anxiety Asthma COPD (chronic obstructive pulmonary disease) Celiac disease Hypercholesterolemia Thyroid disorder Social History?(Updated 02/08/22 @ 08:25 by Em Vincent) Smoking Status:? Never smoker alcohol intake:? current alcohol intake frequency: a few times a week Alcohol type: wine and hard liquor substance use type:? does not use what type of physical activity do you participate in:? none seatbelt use:? always do you feel safe at home:? Yes additional social history:? -? Registration at [facility] Details: AP LOBATO is a 51 year old who presents for preop visit for AUB.? she has irreuglar heavy bleeding.? 10cm uterus with 2.6cm fibroid, nl emb. Female Reproductive History Last Menstrual Period: 08/10/21 Cycle Length: <21 Frequency of changing protection: eveyr hour at the heaviest Associated symptoms: irregular bleeding Questions: metorrhagia: Yes, sexually active: Yes, dyspareunia: No and PCB: No Menopausal Symptoms: Yes hot flashes, Yes night sweats, Yes weight change, Yes mood changes, Yes difficulty concentrating, Yes sleep problems and Yes change in libido History ? ? ? 6 ? Elective abortions ? Hx Para ? ? ? 4 ? Spontaneous abortions ? Hx # Term Pregnancies ? Ectopic pregnancies ? Hx # Pregnancies ? Multiple births ? # of living children ? ROS Const Constitutional: Reports night sweats ENT ENT: Reports system reviewed and no additional complaints, except as documented Cardio Card: Denies chest pain Resp Resp: Denies cough or dyspnea GI GI: Reports as per HPI; Denies constipation, nausea or vomiting : Reports hot flashes; Denies nipple discharge Musc Musc: Denies arthralgias, back pain or muscle weakness Skin Skin/Breast: Denies alopecia, change in hair, dry skin, breast mass, breast pain, breast skin changes or nipple discharge Neuro Neuro: Reports system reviewed and no additional complaints, except as documented Psych Psych: Reports change in libido and difficulty concentrating Endo Endo: Denies cold intolerance, excessive sweating, heat intolerance or polydipsia Senthil/Lymph Hematologic/Lymphatic: Denies easy bleeding, Denies easy bruising and Denies lymphadenopathy Exam Const General: cooperative, healthy appearing, comfortable, no acute distress and well developed Orientation: alert [facility] Head: normal to inspection and normocephalic Ears: hearing grossly normal bilaterally and external ears normal Nose: external nose normal and nares normal Face and sinus: normal facial exam Neck Neck: normal visual inspection and no lymphadenopathy Thyroid: thyroid normal Chest Chest palpation & inspection: normal inspection of the chest Resp Effort & Inspection: normal respiratory effort Auscultation: clear to auscultation bilaterally Cardio Rate: regular rate Rhythm: regular rhythm Heart Sounds: S1 normal and S2 normal GI Inspection: normal to inspection and non-distended Palpation: soft and no hepatosplenomegaly General: bladder normal to palpation External Female Exam: normal external appearance and normal appearance of the urethra Urethra: normal appearance of the urethra, normal palpation and no discharge Speculum Exam - Vagina: normal appearance of the vagina and normal vaginal discharge Speculum Exam - Cervix: normal appearance of the cervix and nontender Bimanual Exam- Vagina & Uterus: normal bimanual exam, uterine size normal, bladder normal to palpation, uterine shape normal, No tender, uterine mobility normal, consistency normal, normal palpation and non-tender Bimanual Exam- Adnexa, other: normal adnexae, adnexae mobile, no masses and normal Pelvic Support: normal Musc Other: gross motor intact no deficits, full bilateral strength Skin General: no rashes or lesions noted Neuro General: patient alert, patient awake, moves all extremities and no focal motor deficits Motor: muscle tone normal throughout Extrem General: normal to inspection and no pedal edema Psych Appearance: grossly normal Mental Status: mental status grossly normal Affect: normal affect Speech and Movement: speech and movement normal Coding Level of Care Code No Charge Diagnoses Abnormal uterine bleeding? N93.9 Hyperprolactinemia? 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 E03.8; E06.3 Assessment and Plan Assessment and Plan (1) Abnormal uterine bleeding: ?Status:?Acute ?Comment: emb done.? 10cm with 2.6cm fibroid lavh bs.? 4 . (2) Hyperprolactinemia: ?Status:?Chronic ?Comment: cabergoline (3) 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: ?Status:?Chronic Plan After discussing the patient's diagnosis and treatment plan options, patient wishes to proceed with surgical management.? I have discussed with the patient the risks, benefits, and alternatives of the procedure which include but are not limited to risks of anesthesia, bleeding, infection, possible damage to bowel, bladder, or surrounding vasculature which could lead to additional surgery to evaluate any complications.? Patient agrees to procedure and wishes to proceed.? ACOG/uptodate references given for additional information regarding procedure.? UPDATE- I have seen the patient and performed any clinically relevant updates to the history and physical exam. Neris Ayala MD
[2022-02-13 22:05] LABS: Absolute Lymphocyte Count 2.67 X10^3/uL (0.83-4.51); Absolute Neutrophil Count 4.4 X10^3/uL (2.0-7.7); Basophil# 0.04 X10^3/uL; Basophil% 0.5 % (0-1); Eosinophil# 0.36 X10^3/uL; Eosinophils% 4.5 % (0-5); Hematocrit 41.2 % (37-47); Hemoglobin 12.6 g/dL (12.0-15.0); Lymphocyte # 2.67 X10^3/ul (0.83-4.51); Lymphocyte % 33.3 % (19-41); Mean Corp Hgb Conc 30.6 g/dL (32-36); Mean Corpuscular Hgb 28.9 pg (27.0-32.0); Mean Corpuscular Volume 94.5 fL (81-99); Monocyte# 0.53 X10^3/uL; Monocyte% 6.6 % (0-10); NRBC Flagged by Analyzer 0 % (0-5); Neutrophil # 4.38 X10^3/uL (2.7-7.7); Neutrophil % 54.7 % (47-70); Platelet Count 336 K/mm3 (150-450); RBC Distribution Width SD 45.1 fl (35.1-43.9); Red Blood Count 4.36 M/mm3 (4.2-5.4)
[2022-02-13 22:14] LABS: Internal QC Validated? YES +Cl - CLEAR BKGD; Pregnancy, Urine Negative Negative
[2022-02-13 22:27] LABS: Magnesium 2.2 mg/dL (1.6-2.6)
[2022-02-20] VITALS (13 sets, daily range): BP systolic 123–144; BP diastolic 79–88; PULSE 74–90; RESP 16–18; TEMP 36.1–37.5; O2SAT 91–99; BMI 36.9
[2022-02-20] MEDS: Lactated Ringers 1,000 ML 40 ML IV ×2 (08:40→14:04)
[2022-02-20] MEDS: dexAMETHasone 10 MG/ML Vial 8 MG IV (08:41)
[2022-02-20] MEDS: Magnesium 1 GM over 15 mins IV (08:47)
[2022-02-20 08:50] LABS: Bedside Glucose 83 mg/dL (74-106)
[2022-02-20] MEDS: Acetaminophen 500 MG Tablet 1000 MG PO (09:12)
[2022-02-20] MEDS: Gabapentin 600 MG Tablet PO (09:12)
[2022-02-20] MEDS: Enoxaparin 40 MG/0.4 ML Syringe SC (09:13)
--- NOTE | 2022-02-20 10:00 | HYST_PTH ---
PATIENT: AP LOBATO LOC: [facility] [place] U#:[id number] AGE/SX: 51/F ROOM: RE02/20/[address]: Dr. Neris Ayala MD : 1970 BED: DIS: 02/20/2022 SPEC #: [id number] RECD: 02/20/22 13:21 STATUS: ZOE RELeo #: [id number] JAYLA: 02/20/22 10:[address]: Neris Ayala DEPT: SURGICAL PATHOLOGY RECD BY: Don Naranjo ENTERED: 02/20/22 13:38 SP TYPE: HYSTERECT OTHR DR: Chani Khan, WEB CONTENT SPECIALIST-C Tissues: Uterus, NOS Procedures: Surgery Specimen Level V HEADER OPERATION: ERAS, hysterectomy, LAVH, salpingectomy PRE-OP DIAGNOSIS: Abnormal uterine bleeding, hyperprolactinemia TISSUE SUBMITTED: Uterus and bilateral fallopian tubes MICROSCOPIC DIAGNOSIS Uterus and bilateral fallopian tubes, hysterectomy and bilateral salpingectomy: Cervix ? chronic inflammation and squamous metaplasia. Endometrium ? disordered proliferative endometrium. - Benign endometrial polyps with disordered proliferative endometrium and simple hyperplasia without atypia. Myometrium ? a subserosal leiomyoma (1.5 cm in diameter). - Adenomyosis. Bilateral fallopian tubes ? hematosalpinx. Right paratubal cyst (3 cm in greatest dimension). SJ:rg 02/21/2022 COMMENT Please make reference to previous specimen ([id number]) endometrium, biopsy with diagnosis of ?disordered proliferative endometrium.? Case has been reviewed in consultation with Dr. Brooke who concurs with the above diagnosis. IDC:AM MICROSCOPIC DESCRIPTION Slides are reviewed. GROSS DESCRIPTION Received in fixative is one container labeled with the patient's name and designated cervix, uterus, bilateral fallopian tubes. The specimen consists of a hysterectomy specimen consisting of uterus with cervix and attached bilateral fallopian tubes. The uterus with cervix weighs 264 gm and measures 13 x 10 x 7 cm. A subserosal nodule is noted. The serosal surface is miller, glistening. The ectocervical mucosa is unremarkable. The external os is oval and patulous in contour. The endocervical canal measures 4 cm in length and the endocervical mucosa is unremarkable. The triangular endometrial cavity measures 5.5 cm in length and up to 5 cm in width. The endometrium is miller, glistening and shows three polyps measuring 1.5 to 2 cm in greatest dimension. The endometrium measures up to 0.3 cm in thickness. Sections through the myometrial wall reveal a subserosal nodular mass measuring 1.5 cm in diameter. Sections through the myometrial wall also reveal trabeculated cut surfaces suspicious for adenomyosis. The myometrial wall measures up to 3.5 cm in thickness. The right fallopian tube measures 9 cm in length and 0.7 cm in diameter. The fimbrial end is identified. It is interrupted in the middle. The fallopian tube is dilated in the middle portion and filled with hemorrhagic fluid. The dilated portion measures up to 1 cm in diameter. A paratubal cyst is also noted in the same area measuring 3 cm in greatest dimension. No papillations are identified in the dilated portion of fallopian tube and also in the paratubal cyst. The left fallopian tube measures 7.5 cm in length and 0.5 to 2 cm in diameter. The fimbrial end is not clearly identified. The lumen is filled with hemorrhagic fluid. Associate Pastor sections are submitted in 12 cassettes as follows: 1 - anterior cervix, 2 - posterior cervix, 3 & 4 - anterior uterine wall, 5 & 6 - posterior uterine wall, 7 - endometrial polyps x2, 8 - endometrial polyp and intramural nodular mass, 9 & 10 - right fallopian tube, 11 & 12 - left fallopian tube. / TIAN:christiano 02/20/2022 TC:5 CPT: 35970
[2022-02-20] MEDS: Cefazolin 2 GM in 0.9% Normal Saline 100 ML IV (10:32)
--- NOTE | 2022-02-20 10:40 | OP.PCM_ITS ---
Problems Associated Problem List Diagnoses (1) Abnormal uterine bleeding: (2) S/P laparoscopic assisted vaginal hysterectomy (LAVH): Report of Operation Date of Procedure: 02/20/22 Pre-Operative Diagnosis: AUB Post-Operative Diagnosis: same Surgery/Procedure Performed:: LAVHBS Description of Surgical Findings:: enlarged uterus pelvic congestion bilateral ovarian to pelvic side wall adhes ions Surgeon: Neris Ayala recreation instructor: Isatu Calle Type of Anesthesia: General Specimen's removed: uterus, tubes Drains: limon Fluids Replaced: crystalloid Description of Procedure: Patient received preoperative antibiotics and SCDs were on preoperatively. Patient was taken back to the operating room and placed in the dorsal lithotomy position. General anesthesia was induced and patient was prepped and draped in normal sterile fashion. Uterine manipulator was placed inside the uterus and Limon catheter placed in the bladder. The umbilicus was grasped with towel clamps and an intraumbilical incision was made after injecting with quarter percent Marcaine and a Veress needle entered into the abdomen confirmed to be intra-abdominal with a low opening pressure. Abdomen was insufflated with CO2 gas and the Veress needle removed and the 5 mm trocar was placed under direct visualization without complication. Right and left lower quadrants were transilluminated and injected with quarter percent Marcaine and 5 mm ports placed under direct visualization. Pelvis was well visualized see operative findings for additional information. Bilateral fallopian tubes were identified and transected with the LigaSure device across the mesosalpinx to the level of the utero-ovarian ligament which was also transected with the LigaSure device. The broad ligament was opened up by transecting the round ligament bilaterally and skeletonizing the uterine vessels bilaterally and creating a bladder flap using the LigaSure device. The uterine arteries were transected bilaterally with good visualization of the bladder and the ureters were seen to be inferior lateral to the operative area. Attention was then paid to the vaginal portion of the procedure and the cervix was grasped with Adelaide clamps and circumferentially injected with dilute vasopressin. A circumferential incision was made and the vaginal mucosa was mobilized off posteriorly and the cul-de-sac entered into sharply and a longneck speculum placed. The anterior cul-de-sac was then identified and entered into sharply. The uterosacral ligaments were clamped cut and suture ligated with 0 Monocryl bilaterally followed by the cardinal ligaments which were clamped cut and suture ligated bilaterally with 0 Monocryl. The uterus serially descended and was removed without difficulty. Pelvic sidewall pedicles were checked and noted to have excellent hemostasis. The vaginal mucosa was reapproximated incorporating the posterior peritoneum. This was reapproximated using 0 Vicryl [id number] sutures. Excellent hem ostasis was noted. The pelvis and cul-de-sac were well visualized and no significant active bleeding noted but bleeding was seen at the cuff which was treated with the ligasure and then some floseal. Pressure was taken down and the areas visualized and noted to have excellent hemostasis. All ports were removed under direct visualization without complication and the abdomen was desufflated of air. The instruments were removed from the abdomen and the vaginal sweep was negative. Port sites on the abdomen were closed with 4-0 Monocryl interrupted sutures and Steri's and windows were applied. She was awoken and taken recovery in stable condition. Grafts/Implants Used: none Complications none Admit VTE Documentation VTE Present on Admission: No VTE Mechan Device Prophylaxis: SCD's VTE Pharm Prophylaxis ordered?: Yes Procedures Urinary/Genital 52xxx-59xxx: 18841 LAVH+BS/O >250gr Uterus
[2022-02-20] MEDS: Vasopressin 20 UNITS/ML Vial (11:28)
--- NOTE | 2022-02-20 12:57 | DCINST_ITS ---
Discharge Instructions Diet Discharge Diet: No restrictions Activity May resume sexual activity in: 6 weeks Weight Bearing Status: Full weight bearing Dressing / Incision Call your doctor if your incision/area has: Continuous Slow Oozing, Sudden Increased Bleeding, Increased Pain/ Swelling, Increased Redness and Foul Smelling Discharge Call your doctor if you observe: Fever of 101 or Higher, Using more than 1 pad per hour, Shortness of breath, Chest pain and Uncontrolled pain Suture Line Care: Avoid Pulling/Pushing and Avoid Pinching/Bending Remove Dressing in: 1 week (if present) Cleanse incision/area with: Soap & Water and Keep Dressing Clean & Dry Follow Up Care Please Follow Up With: Neris Ayala MD When: Call to make an appointment with your doctor for a postop visit in 2 and 6 weeks. Test Results: Test results from this visit will be discussed in further detail at your follow- up appointment, if applicable. Discharge Plan Admission Attending Provider: Neris Ayala Primary Care Provider: Chani Khan NP Discharge Orders/Prescriptions Prescriptions: New oxycodone-acetaminophen [Percocet] 5-325 mg tablet 1 tab PO Q6H PRN (Reason: pain) 7 Days Qty: 20 0RF naproxen [naproxen] 500 mg tablet 500 mg PO BID PRN PRN (Reason: Pain) Qty: 30 1RF Continued fluticasone propionate 50 mcg/actuation spray,suspension 50 mcg INTRANASAL ONCE Advair HFA 230-21 mcg/actuation HFA aerosol inhaler 2 puff INHALATION BID albuterol sulfate 1 INHALER inhaler 1 - 2 puff inhalation Q4H PRN PRN (Reason: Wheezing) cabergoline 0.5 mg tablet 0.5 mg PO SA lansoprazole 15 mg Capsule,Delayed Release(Dr/Ec) 15 mg PO DAILY levothyroxine 150 mcg tablet 150 mcg PO DAILY Qty: 90 1RF Other Ambulatory Orders: 12 Lead EKG (Routine) Timeframe: [id number] Location: None Selected Ordered By: Dr. Neris Ayala Referrals / Follow Up: Chani Khan NP, REWRITE EDITOR-C [Primary Care Provider] - Disposition Disposition (needs filled in before D/C Order can be placed): Home, Self Care
[2022-02-20] MEDS: Ondansetron 4 MG/2 ML Vial IV (14:04)
[2022-02-20] MEDS: oxyCODONE 5 MG Tablet PO (15:40)
[2022-02-20 17:10] LABS: Hematocrit 43.8 % (37-47); Hemoglobin 13.4 g/dL (12.0-15.0); Mean Corp Hgb Conc 30.6 g/dL (32-36); Mean Corpuscular Volume 94.8 fL (81-99); Platelet Count 325 K/mm3 (150-450); RBC Distribution Width CV 12.9 % (11.6-14.6); RBC Distribution Width SD 45.1 fl (35.1-43.9); Red Blood Count 4.62 M/mm3 (4.2-5.4); White Blood Count 11.6 K/mm3 (4.4-11.0)
== END 2022-02-20 18:53 | disposition home or self-care (01) ==
LOC: SDC 07:56 → AC 07:57
PROVIDERS: PCP Nurse Practitioner Primary Care; Referring Provider Obstetrics & Gynecology; Visit Provider Obstetrics & Gynecology
PROC: 0UT9FZZ Resection of Uterus, Via Natural or Artificial Opening With Percutaneous Endoscopic Assistance (ICD-10-PCS; CPT 58554; principal; 2022-02-20 09:35)
DX: N93.9 Abnormal uterine and vaginal bleeding, unspecified (principal); E22.1 Hyperprolactinemia; D25.9 Leiomyoma of uterus, unspecified; N95.1 Menopausal and female climacteric states; E06.3 Autoimmune thyroiditis; K21.9 Gastro-esophageal reflux disease without esophagitis; E03.9 Hypothyroidism, unspecified; E78.5 Hyperlipidemia, unspecified; Z86.73 Personal history of transient ischemic attack (TIA), and cerebral infarction without residual deficits
CPT/HCPCS: 58554; 00840; 81025; 82962; 83735; 85025; 85027; 86850; 86900; 86901; 88307; 93005; J7120; J2405; J3475

== ENCOUNTER → 2022-03-02 | Outpatient (CLI) | payer OTHER, SELFPAY ==
[2022-03-02 15:14] LABS: Absolute Lymphocyte Count 2.12 X10^3/uL (0.83-4.51); Absolute Neutrophil Count 11.2 X10^3/uL (2.0-7.7); Basophil# 0.03 X10^3/uL; Basophil% 0.2 % (0-1); Hematocrit 38.4 % (37-47); Lymphocyte # 2.12 X10^3/ul (0.83-4.51); Lymphocyte % 14.1 % (19-41); Mean Corp Hgb Conc 31.3 g/dL (32-36); Mean Corpuscular Hgb 29.5 pg (27.0-32.0); Mean Corpuscular Volume 94.3 fL (81-99); Mean Platelet Vol. 9.6 fl (6.2-12.0); Monocyte# 0.89 X10^3/uL; Monocyte% 5.9 % (0-10); NRBC Flagged by Analyzer 0 % (0-5); Neutrophil # 11.24 X10^3/uL (2.7-7.7); Platelet Count 497 K/mm3 (150-450); Red Blood Count 4.07 M/mm3 (4.2-5.4)
[2022-03-02 15:37] LABS: Anion Gap 10 (5-15); BUN 11 mg/dL (7-18); Calcium,Total 9.1 mg/dL (8.5-10.1); Chloride 109 mmol/L (98-107); Creatinine, Serum 0.69 mg/dL (0.55-1.02); EST Glomerular Filtration Rate 95 mL/min (>60); Est Glom Filt Rate - Afr Amer 115 mL/min (>60); Glucose 98 mg/dL (74-106); Potassium 3.5 mmol/L (3.5-5.1); Sodium Level 143 mmol/L (136-145)
== END | disposition home or self-care (01) ==
PROVIDERS: PCP Nurse Practitioner Primary Care; Referring Provider Obstetrics & Gynecology; Visit Provider Obstetrics & Gynecology
DX: R30.9 Painful micturition, unspecified (principal); N93.9 Abnormal uterine and vaginal bleeding, unspecified; Z90.710 Acquired absence of both cervix and uterus
CPT/HCPCS: 36415; 80048; 85025; 87077; 87086; 87088; 87186

== ENCOUNTER → 2022-03-19 | Outpatient (CLI) | payer OTHER, SELFPAY ==
[2022-03-19 17:49] LABS: Absolute Neutrophil Count 3.9 X10^3/uL (2.0-7.7); Basophil# 0.05 X10^3/uL; Basophil% 0.7 % (0-1); Eosinophil# 0.77 X10^3/uL; Eosinophils% 10.2 % (0-5); Hematocrit 40.7 % (37-47); Hemoglobin 12.9 g/dL (12.0-15.0); Lymphocyte % 31.9 % (19-41); Mean Corp Hgb Conc 31.7 g/dL (32-36); Mean Corpuscular Hgb 29.5 pg (27.0-32.0); Mean Corpuscular Volume 93.1 fL (81-99); Mean Platelet Vol. 9.4 fl (6.2-12.0); Monocyte# 0.42 X10^3/uL; Monocyte% 5.6 % (0-10); NRBC Flagged by Analyzer 0 % (0-5); Neutrophil # 3.88 X10^3/uL (2.7-7.7); Neutrophil % 51.5 % (47-70); Platelet Count 373 K/mm3 (150-450); RBC Distribution Width CV 13.3 % (11.6-14.6); RBC Distribution Width SD 45.7 fl (35.1-43.9); Red Blood Count 4.37 M/mm3 (4.2-5.4); White Blood Count 7.5 K/mm3 (4.4-11.0)
[2022-03-19 18:14] LABS: ALB/GLOB Ratio 0.8 RATIO (0.9-2.4); AST(SGOT) 20 U/L (15-37); Alanine Aminotransfer ALT/SGPT 34 U/L (13-56); Albumin, Serum 3.4 g/dL (3.2-5.0); Alkaline Phosphatase 88 U/L (45-117); Anion Gap 7 (5-15); BUN 13 mg/dL (7-18); BUN/Creat Ratio 16.9 RATIO (10-20); Calcium,Total 9.2 mg/dL (8.5-10.1); Chloride 108 mmol/L (98-107); Creatinine, Serum 0.77 mg/dL (0.55-1.02); EST Glomerular Filtration Rate 83 mL/min (>60); Est Glom Filt Rate - Afr Amer 101 mL/min (>60); Globulin 4.1 g/dL (2.2-4.2); Glucose 98 mg/dL (74-106); Potassium 3.7 mmol/L (3.5-5.1); Protein, Total 7.5 g/dL (6.4-8.2); Sodium Level 141 mmol/L (136-145)
--- NOTE | 2022-03-19 18:23 | US_ITS ---
INDICATION: infection EXAMINATION: US Pelvis Non OB Complete With Transvaginal Imaging TECHNIQUE: Transabdominal and transvaginal pelvic ultrasound was performed. Grayscale, spectral waveform, and color flow Doppler evaluation of the adnexa. COMPARISON: None. FINDINGS: UTERUS: Not visualized. RIGHT OVARY: Measures 2.3 x 1.7 x 1.4 cm. Non-enlarged, normal echogenicity. There is normal arterial inflow and venous outflow present in the right ovary. LEFT OVARY: Measures 4.3 x 3.9 x 4.7 cm. Non-enlarged, normal echogenicity. There is normal arterial inflow and venous outflow present in the left ovary. Contains a 4.1 cm simple cyst. FREE FLUID: None. US/Pelvic (Non ) IMPRESSION: Status post hysterectomy. Normal bilateral ovaries. Electronically Signed: Pepe Munoz MD at 20:47 EST ,
== END | disposition home or self-care (01) ==
LOC: US 18:23
PROVIDERS: PCP Nurse Practitioner Primary Care; Referring Provider Obstetrics & Gynecology; Visit Provider Obstetrics & Gynecology
DX: A49.1 Streptococcal infection, unspecified site (principal); A49.8 Other bacterial infections of unspecified site; Z16.12 Extended spectrum beta lactamase (ESBL) resistance
CPT/HCPCS: 36415; 76830; 76856; 80053; 85025; 87086; 87088

== ENCOUNTER → 2022-07-05 | Outpatient (CLI) | payer OTHER, SELFPAY ==
[2022-07-05 10:55] LABS: Prolactin 92.9 ng/mL; T4 Free Direct 0.59 ng/dL (0.76-1.46); Thyroid Stim Hormone (TSH) 2.07 uIU/mL (0.358-3.74)
== END | disposition home or self-care (01) ==
LOC: LAB 08:40
PROVIDERS: PCP Nurse Practitioner Primary Care; Referring Provider Internal Medicine Endocrinology, Diabetes & Metabolism; Visit Provider Internal Medicine Endocrinology, Diabetes & Metabolism
DX: E22.1 Hyperprolactinemia (principal); E03.8 Other specified hypothyroidism; E06.3 Autoimmune thyroiditis
CPT/HCPCS: 36415; 84146; 84439; 84443

== ENCOUNTER → 2022-12-03 | Outpatient (CLI) | payer OTHER, SELFPAY ==
[2022-12-03 11:26] LABS: Prolactin 11.5 ng/mL; T4 Free Direct 1.48 ng/dL (0.76-1.46); Thyroid Stim Hormone (TSH) 0.04 uIU/mL (0.358-3.74)
== END | disposition home or self-care (01) ==
LOC: MTLAB 08:30
PROVIDERS: Nurse Practitioner Family; PCP Nurse Practitioner Primary Care; Referring Provider Obstetrics & Gynecology; Visit Provider Obstetrics & Gynecology
DX: E27.9 Disorder of adrenal gland, unspecified (principal); E22.1 Hyperprolactinemia
CPT/HCPCS: 36415; 82533; 84146; 84439; 84443

== ENCOUNTER → 2023-06-13 | Outpatient (CLI) | payer OTHER, SELFPAY ==
[2023-06-13 18:33] LABS: AST(SGOT) 20 U/L (15-37); Alanine Aminotransfer ALT/SGPT 34 U/L (13-56); Albumin, Serum 3.4 g/dL (3.2-5.0); Alkaline Phosphatase 90 U/L (45-117); Anion Gap 6 (5-15); BUN 9 mg/dL (7-18); BUN/Creat Ratio 12.4 RATIO (10-20); Calcium,Total 8.7 mg/dL (8.5-10.1); Chloride 113 mmol/L (98-107); Creatinine, Serum 0.72 mg/dL (0.55-1.02); EST Glomerular Filtration Rate 89 mL/min (>60); Est Glom Filt Rate - Afr Amer 107 mL/min (>60); Globulin 3.4 g/dL (2.2-4.2); Glucose 111 mg/dL (74-106); Potassium 3.7 mmol/L (3.5-5.1); Prolactin 6.6 ng/mL; Protein, Total 6.8 g/dL (6.4-8.2); Sodium Level 144 mmol/L (136-145); T4 Free Direct 1.18 ng/dL (0.76-1.46); Thyroid Stim Hormone (TSH) 0.05 uIU/mL (0.358-3.74)
== END | disposition home or self-care (01) ==
LOC: MTLAB 16:35
PROVIDERS: PCP Nurse Practitioner Primary Care; Referring Provider Internal Medicine Endocrinology, Diabetes & Metabolism; Visit Provider Internal Medicine Endocrinology, Diabetes & Metabolism
DX: E03.8 Other specified hypothyroidism (principal); E06.3 Autoimmune thyroiditis; E22.1 Hyperprolactinemia
CPT/HCPCS: 36415; 80053; 84146; 84439; 84443

== ENCOUNTER → 2023-09-24 | Outpatient (CLI) | payer OTHER, SELFPAY ==
--- NOTE | 2023-09-24 15:33 | BD_ITS ---
STUDY: DUAL ENERGY X-RAY ABSORPTIOMETRY / DXA REASON FOR EXAM: Female, 53 years old. Screening TECHNIQUE: Bone Mineral Density (BMD) measurements of lumbar spine and bilateral hips were obtained. COMPARISON: None. FINDINGS: Lumbar Spine (L1-L4): g/cm2 (0.880) / T-score (-1.4) / Z-score (-0.3) Findings are suggestive of osteopenia with a low fracture risk. Left Femur Total: g/cm2 (0.882) / T-score (-0.5) / Z-score (0.2) Left Femoral Neck: g/cm2 (0.684) / T-score (-1.5) / Z-score (-0.4) Right Femur Total: g/cm2 (0.883) / T-score (-0.5) / Z-score (0.2) Right Femoral Neck: g/cm2 (0.677) / T-score (-1.5) / Z-score (-0.5) BD/Dexa Bone Density Study IMPRESSION: The patient is considered osteopenic as outlined below according to World Frandy Organization (WHO) criteria with a low fracture risk. Reference Information: The T-score is the number of standard deviations above or below the standard which is normal for young adults at their peak bone mineral density. The World Health Organization (WHO) interprets the T-scores as follows: Above -1 Normal bone density Between -1 and -2.5 Osteopenia Equal to / or below -2.5 Osteoporosis As a practical clinical guideline, osteopenia may be graded as follows: Mild -1 through -1.5 Moderate -1.6 through -2.0 Severe -2.1 through -2.4 The Z-score is the number of standard deviations above or below age-matched controls. A Z-score of less than -1.5 would be considered abnormal. References: 1. NIH Osteoporosis and Related Bone Diseases www osteo.org 2. International Society for Clinical Densitometry www iscd.org 3. National Osteoporosis Foundation www nof.org Electronically Signed: Albino Ennis MD at 10:20 EDT ,
--- NOTE | 2023-09-24 15:41 | BI_ITS ---
MAMMOGRAPHY - BILATERAL SCREENING REASON FOR EXAM: Female, 53 years old. Routine annual screening examination. PERTINENT HISTORY: Non-contributory. TECHNIQUE: Digital bilateral breast andrade (3D mammographic acquisition) in the CC and MLO projections. 2-D mediolateral oblique (MLO) and craniocaudad (CC) views of both breasts were obtained. CAD: Full Field Digital Mammography with Computer Added Detection was performed. COMPARISON: Comparison is made with prior study May 15, 2021 and October 31, 2012. FINDINGS: Breast Composition: There are scattered areas of fibroglandular density. There are no dominant masses or suspicious calcifications. Stable small benign-appearing bilateral axillary lymph nodes. No other significant abnormalities are identified. There has been no significant change since the prior study. BI/SCRN MAMM (CAD)W/ANDRADE BILAT IMPRESSION: Stable bilateral screening mammogram. Yearly follow-up mammogram recommended. (A) ASSESSMENT CATEGORY: BIRADS Category 2: Benign. A letter regarding these results will be sent to the patient by the facility within 30 days. Approximately 10% of breast cancers are not detected by mammography. A normal mammogram should not delay biopsy of a clinically suspicious abnormality. [id number] Electronically Signed: Albino Ennis MD at 8:09 EDT ,
== END | disposition home or self-care (01) ==
PROVIDERS: PCP Nurse Practitioner Primary Care; Referring Provider Internal Medicine Endocrinology, Diabetes & Metabolism; Visit Provider Nurse Practitioner Adult Health
DX: Z12.31 Encounter for screening mammogram for malignant neoplasm of breast (principal); Z13.820 Encounter for screening for osteoporosis; E03.8 Other specified hypothyroidism; E06.3 Autoimmune thyroiditis; E22.1 Hyperprolactinemia
CPT/HCPCS: 77063; 77067; 77080

== ENCOUNTER 2024-02-05 08:28 | Day surgery (SDC) | payer OTHER, SELFPAY ==
[2024-02-05] VITALS (7 sets, daily range): BP systolic 112–163; BP diastolic 73–96; PULSE 76–110; RESP 16–18; TEMP 36.6–37.6; O2SAT 94–99; BMI 37.3
--- NOTE | 2024-02-05 08:37 | PCM.PRE.AN2 ---
ASA Classification* ASA Classification ASA Classification: 2 Assessment & Plan Anesthesia* Anesthesia Assessment Anesthesia Assessment: Discussed sedation and/or anesthesia options, risks, benefits, and alternatives with patient/parents/legal guardian/POA. Questions invited. The patient/parents/legal guardian/POA seems to understand and agrees to proceed with anesthesia plan. Reviewed the physical assessment, medical history, allergy history and patient home medications list prior to surgery/procedure/anesthetic and documented any changes. Performed airway and anesthesia risk assessments. Anesthesia Type Anesthesia Type: MAC Anesthesia Focused Assessment* Airway Assessment Mouth opens: >3 cm Mallampati Score: II Focused Labs Anesthesia Preop lab: CBC WBC 5.7 K/mm3 (4.4-11.0) 11/29/23 11:13 RBC 4.45 M/mm3 (4.2-5.4) 11/29/23 11:13 Hgb 13.2 g/dL (12.0-15.0) 11/29/23 11:13 Hct 42.0 % (37-47) 11/29/23 11:13 Plt Count 269 K/mm3 (150-450) 11/29/23 11:13 CHEMISTRY Potassium 3.3 mmol/L (3.5-5.1) L 11/29/23 11:13 Sodium 143 mmol/L (136-145) 11/29/23 11:13 Magnesium 2.2 mg/dL (1.6-2.6) 02/13/22 21:50 Phosphorus 3.6 mg/dL (2.5-4.9) 11/29/23 11:13 BUN 9 mg/dL (7-18) 11/29/23 11:13 Creatinine 0.79 mg/dL (0.55-1.02) 11/29/23 11:13 Glucose 95 mg/dL (74-106) 11/29/23 11:13 POC Glucose 83 mg/dL (74-106) 02/20/22 08:24 TSH 0.05 uIU/mL (0.358-3.74) L 06/13/23 16:39 COAG Urine Test Negative Negative 02/13/22 21:50 Pre-Assessment Diagnosis/Proposed Procedure Planned Operative Procedure(s): CSCOPE OA Anesthesia History Anesthesia History - neighborhood coordinator: Anesthesia History - neighborhood coordinator Hx Hospitalization No 02/03/24 12:53 Any Problems With Anesthesia No 02/03/24 12:53 Cholinesterase deficiency No 02/03/24 12:53 You/Your Family Experience No 02/03/24 12:53 fever (hyperthermia) with Relationship Recent Exposure to Contagious No 03/05/22 09:59 Disease Does patient have nerve No 02/03/24 12:53 stimulator Patient instructed to have device shut off --Does patient have Pacemaker or ICD? When Was Last Pacemaker Check QUESTION #4 FULL TEXT: You/Your Family Experience fever (hyperthermia) with Anesthesia Last Oral Intake Last Oral intake: Last Oral Intake NPO since Meds taken in AM with sips of water? Meds patient instructed to take am of surgery PONV PONV - neighborhood coordinator: PONV - neighborhood coordinator Female Yes 02/03/24 12:53 HX of Motion Sickness Yes 02/03/24 12:53 HX of N/V After Surgery No 02/03/24 12:53 Non-Smoker Yes 02/03/24 12:53 Duration of Surgery greater No 02/03/24 12:53 than 60 minutes Number of Risk Factors 3 02/03/24 12:53 PONV Score Moderate Risk 02/03/24 12:53 Height & Weight Height & Weight: Anesthesia: Height & Weight Height 5 ft 7 in 12/24/23 09:54 Respiratory Assessment Respiratory Assessment - neighborhood coordinator: Respiratory Tract Infection Hx - neighborhood coordinator Hx Respiratory Tract Infection No 02/03/24 12:53 STOP Sleep Apnea STOP Sleep Apnea - neighborhood coordinator: STOP Sleep Apnea - neighborhood coordinator Hx Hypertension No 02/03/24 12:53 Hx Sleep Apnea No 02/03/24 12:53 CPAP No 03/05/22 09:59 BIPAP Do you snore loudly (louder No 02/03/24 12:53 than talking or can be heard Do you often feel tired/ No 02/03/24 12:53 fatigued/ sleepy during daytime? Has anyone observed you stop No 02/03/24 12:53 breathing during sleep? STOP Results Negative 02/03/24 12:53 QUESTION #5 FULL TEXT : Do you snore loudly (louder than talking or can be heard through closed doors)? Tobacco Use History Tobacco Use History - neighborhood coordinator: Tobacco Use History - neighborhood coordinator Tobacco Use Smoking Status Never smoker 02/03/24 12:53 Hx Tobacco Use No 02/03/24 12:53 Years Smoking Packs Smoked per Day Smoking Cessation Date was within the last 15 years Hx Smoking Cessation Date Hx Smoking Cessation Counseling Hematologic Medial History Hematologic Hx - neighborhood coordinator: Hematologic Medical Hx - pharmacy services representative Hx of Blood Transfusion No 02/03/24 12:53 Hx of Transfusion in last 3 No 02/03/24 12:53 Months Date of Last Transfusion (if within last 3 months) Ever experience any problems No 02/03/24 12:53 with transfusion(s)? Specify any problems Hx of Preganancy in last 3 No 02/03/24 12:53 Months Nurse Filling Out Transfusion DSCHRIBER 02/03/24 12:53 & Questions: Date: 02/03/24 02/03/24 12:53 Time: 12:54 02/03/24 12:53 Patient unable to answer at this time (ie. 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-producing Escherichia coli Wears glasses Cancer Anxiety Alcohol use Thyroid disease Gastric reflux Non-smoker Status post hysteroscopy Hyperprolactinemia Hypothyroidism Hyperlipidemia Female fertility problems Asthma Shoulder pain Home Medications ?Medication ?Instructions ?Recorded ?Last Taken ?Type fluticasone propionate 50 50 mcg intranasal DAILY PRN PRN 04/14/17 Unknown History mcg/actuation nasal allergy symptoms spray,suspension albuterol sulfate 90 mcg/actuation 1 - 2 puff inhalation Q4H PRN PRN 04/29/17 02/20/22 History aerosol inhaler Wheezing fluticasone propionate 230 2 puff inhalation BID 05/19/19 02/20/22 History mcg-salmeterol 21 mcg/actuation HFA inhaler (Advair HFA) lansoprazole 15 mg capsule,delayed 15 mg PO DAILY 02/20/22 02/20/22 History release levothyroxine 125 mcg tablet 125 mcg PO DAILY #90 tabs 12/17/23 Unknown Rx cabergoline 0.5 mg tablet 0.5 mg PO WE 02/03/24 Unknown History venlafaxine 75 mg capsule,extended 150 mg PO DAILY 02/03/24 Unknown History release 24 hr Allergy/AdvReac Type Severity Reaction Status Date / Time shellfish derived Allergy Angioedema Verified 02/03/24 12:51 amoxicillin (From Augmentin) AdvReac Diarrhea Verified 02/03/24 12:51 clavulanic acid (From AdvReac Diarrhea Verified 02/03/24 12:51 Augmentin) Family History Other A-fib Anxiety Asthma COPD (chronic obstructive pulmonary disease) Celiac disease Hypercholesterolemia Thyroid disorder Surgical History History of [facility] History of D&C S/P laparoscopy Glomus tumor Hx of cholecystectomy Social History household members: spouse current occupational status: employed sexually active: Yes Smoking Status: Never smoker alcohol intake: current alcohol intake frequency: a few times a week Alcohol type: wine and hard liquor substance use type: does not use what type of physical activity do you participate in: none seatbelt use: always do you feel safe at home: Yes additional social history: - Registration at [facility] Review of Systems (Anesthesia) ROS Narrative System reviewed and no additional complaints, except as documented.
--- NOTE | 2024-02-05 09:14 | H&P.OPEN ---
HPI - General General Date of Service: 02/05/24 HPI Narrative AP LOBATO, is a 53 F who presents for screening colonoscopy. Patient never had previous colonoscopy. Patient denies any family history of colon cancer. Patient has bowel movements every 2 to 3 days denies any blood. Patient denies any chronic abdominal pain/nausea/vomiting. Patient does have reflux takes [id number] omeprazole 20 mg p.o. daily which takes care of the symptoms. [facility] Medical History Low iron Shortness of breath on exertion Streptococcus agalactiae infection Infection due to ESBL-producing Escherichia coli Wears glasses Cancer Anxiety Alcohol use Thyroid disease Gastric reflux Non-smoker Status post hysteroscopy Hyperprolactinemia Hypothyroidism Hyperlipidemia Female fertility problems Asthma Shoulder pain Home Medications ?Medication ?Instructions ?Recorded ?Last Taken ?Type fluticasone propionate 50 50 mcg intranasal DAILY PRN PRN 04/14/17 Unknown History mcg/actuation nasal allergy symptoms spray,suspension albuterol sulfate 90 mcg/actuation 1 - 2 puff inhalation Q4H PRN PRN 04/29/17 02/20/22 History aerosol inhaler Wheezing fluticasone propionate 230 2 puff inhalation BID 05/19/19 02/20/22 History mcg-salmeterol 21 mcg/actuation HFA inhaler (Advair HFA) lansoprazole 15 mg capsule,delayed 15 mg PO DAILY 02/20/22 02/20/22 History release levothyroxine 125 mcg tablet 125 mcg PO DAILY #90 tabs 12/17/23 02/05/24 Rx cabergoline 0.5 mg tablet 0.5 mg PO WE 02/03/24 Unknown History venlafaxine 75 mg capsule,extended 150 mg PO DAILY 02/03/24 Unknown History release 24 hr Allergy/AdvReac Type Severity Reaction Status Date / Time shellfish derived Allergy Angioedema Verified 02/05/24 08:45 amoxicillin (From Augmentin) AdvReac Diarrhea Verified 02/05/24 08:45 clavulanic acid (From AdvReac Diarrhea Verified 02/05/24 08:45 Augmentin) Family History Other A-fib Anxiety Asthma COPD (chronic obstructive pulmonary disease) Celiac disease Hypercholesterolemia Thyroid disorder Surgical History History of [facility] History of D&C S/P laparoscopy Glomus tumor Hx of cholecystectomy Social History household members: spouse current occupational status: employed sexually active: Yes Smoking Status: Never smoker alcohol intake: current alcohol intake frequency: a few times a week Alcohol type: wine and hard liquor substance use type: does not use what type of physical activity do you participate in: none seatbelt use: always do you feel safe at home: Yes additional social history: - Registration at [facility] Past Medical/Surgical History Planned Operation Planned Operative Procedure(s): CSCOPE OA S.O.S: No Previous Hospitalizations/Surgeries HX Hospitalizations: No HX of Surgeries: 2004 TUMOR REMOVED EAR GALLBLADDER D AND C X2 LAPAROSCOPY FOR INFERTILITY Any Problems With Anesthesia: No You/Your Family Experience Fever (Hyperthermia) With Anes: No Cholinesterase deficiency: No Cardiovascular Hx Chest Pain within Last 2 months: No Hx of Irregular Heartbeat and/or Afib: No Hx Heart Attack: No Hx Congestive Heart Failure: No Hx Rheumatic Fever: No Hx Hypertension: No Hx Internal Defibrillator: No Hx Pacemaker: No Hx Cardiac Catheterization: No Hx Cardiac Surgery/Stents/Etc.: No Hx Stress Test: No Hx Pain in Legs when Walking/Leg Cramps: No Respiratory Chronic Cough: No HX of Shortness of Breath: Yes (SOB WITH 2 FLIGHTS STAIRS) Hoarseness: No Hx Chronic Obstructive Pulmonary Disease (COPD): No Hx Asthma: Yes Hx Emphysema: No Hx Sleep Apnea: No CPAP: No Hx Respiratory Tract Infection/Cold (presently): No Do You Snore Loudly (louder than talking or can be heard): No Do You Often Feel Tired/ Fatigued/ Sleepy Dring Daytime?: No Has Anyone Observed You Stop Breathing During Sleep?: No Result (for STOP score): Negative Hx Smoking: No Smoking Status: Never smoker Gastrointestinal Hx Gastrointestinal Disorders: No Hx Gastrointestinal Bleed: No Hx Ulcer: No Hx Hiatal Hernia: No Difficulty Chewing/Swallowing: Yes (HAS TROUBLE SWALLOWING) Special diet followed at home: No Hx Unplanned Weight Loss of 20#: No HX Unplanned Weight Gain of 20#: No Neurological Hx Seizures: No HX Syncope/Blackout Spells/Unconsciousness: No Hx Transient Ischemic Attacks (TIA): No Hx Multiple Sclerosis: No Hx Parkinson's Disease: No Hx Head/Neck Injury: No Hx Headaches: No Hx Back Injury/Pain: Yes (LOWER BACK PAIN) Recent Onset of Speech Difficulty: No Restless Legs: No Does patient have nerve stimulator: No Blood Disorder Hx Leukemia: No Bleeding Tendencies: No Hx Deep Vein Thrombosis: No Hx High Cholesterol: No Blood Transmitted Disease: No Hx Hepatitis: No 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) Hx Anemia: No Hx Blood Disorders: No Reproduction : No Is Patient Lactating: No Hx Hysterectomy: No Hx Tubal Ligation: No Are You Post Menopause: No Genitourinary Hx Renal Disease: No Musculoskeletal Hx Arthritis: No Hx Rheumatoid Arthritis: No Hx Gout: No Recent Onset of an Orthopedic Problem: No Endocrine Hx Diabetes: No Thyroid Disease: Yes (ON MED) Hx Steroid Therapy: Yes (ORAL 07/2016) Psycho/Social Hx Substance Use: No Hx Alcohol Use: Yes (GLASS WINE /DAY) Hx Anxiety: Yes (ZOLOFT) Hx Depression: No Mental Illness: No Hx Dementia: No Miscellaneous Hx Cancer: Yes (melanoma, ARM 1990'S, REMOVED) Recent Exposure to Contagious Disease: No Hx of C-Diff: No Any Loose Teeth: No Allergies shellfish derived Allergy (Verified 02/05/24 08:45) Angioedema amoxicillin (From Augmentin) Adverse Reaction (Verified 02/05/24 08:45) Diarrhea Blood in stool clavulanic acid (From Augmentin) Adverse Reaction (Verified 02/05/24 08:45) Diarrhea Blood in stool Discharge Is Pt Admitted From a Penitentiary, or a Shelter: No After D/C, Where Do you Plan to Go: Return Home Vital Signs Vital Signs Vital Signs: 02/05/24 08:45 02/05/24 08:45 Temperature 97.9 F Temperature Source Temporal Pulse Rate 110 H Respiratory Rate 16 Respiratory Pattern Normal Blood Pressure 163/96 H Blood Pressure Mean 118 Blood Pressure Source Monitor Blood Pressure Position Semi-Fowlers Blood Pressure Location Right Arm Pulse Ox 96 Oxygen Delivery Method Room Air Physical Exam Const alert, oriented x3 and no apparent distress HEENT normocephalic and head/scalp atraumatic Resp normal respiratory effort Cardio regular rate GI soft to palpation and non-tender; Negative for non-distended Palpation: Negative for guarding Extremity no clubbing, cyanosis or edema Skin no rashes or lesions noted Neuro CN's II-XII intact bilaterally Psych mental status grossly normal Assessment & Plan Assessment/Plan (1) Encounter for screening for malignant neoplasm of colon: Surgery Risks - Colonoscopy I discussed with the patient the risks of the procedure: Yes Risks Include but are not Limited To: Risks include but are not limited to: Bleeding, perforation requiring further surgery, inability to complete colonoscopy requiring barium enema.
--- NOTE | 2024-02-05 09:45 | COLBX_PTH ---
PATIENT: AP LOBATO LOC: EN U#:[id number] AGE/SX: 53/F ROOM: RE02/05/[address]: Dr. Yamel Gallo MD : 1970 BED: DIS: 02/05/2024 SPEC #: [id number] RECD: 02/05/24 12:11 STATUS: ZOE RELeo #: [id number] JAYLA: 02/05/24 09:[address]: Yamel Gallo DEPT: SURGICAL PATHOLOGY RECD BY: Sondra Hardy ENTERED: 02/05/24 13:50 SP TYPE: COLON BX ANGELIQUE DR: Chani Khan, MACHINERY REPAIR MAINTENANCE SUPERVISOR-C Tissues: A - Ascending colon B - Descending colon C - Sigmoid colon biopsy Procedures: Surgery Specimen Level IV HEADER OPERATION: Colonoscopy PRE-OP DIAGNOSIS: Routine screening TISSUE SUBMITTED: A- Ascending colon biopsy, B- Descending colon biopsy, C- Sigmoid biopsy MICROSCOPIC DIAGNOSIS A. Ascending colon polyp, biopsy: Fragments of hyperplastic polyp. B. Descending colon polyp, biopsy: Fragments of colonic mucosa with focal hyperplastic change. C. Sigmoid colon, biopsy: Fragment of colonic mucosa with focal hyperplastic change. 02/06/2024 MICROSCOPIC DESCRIPTION Slides are reviewed. GROSS DESCRIPTION A. Received in fixative is one container labeled with the patient's name and designated Ascending colon biopsy. The specimen consists of multiple irregular fragments of light miller soft tissue that in aggregate measure 1.0 x 0.3 x 0.1 cm. The specimen is totally submitted in one cassette. B. Received in fixative is one container labeled with the patient's name and designated Descending colon biopsy. The specimen consists of two irregular fragments of light miller soft tissue that in aggregate measure 0.8 x 0.3 x 0.1 cm. The specimen is totally submitted in one cassette. C. Received in fixative is one container labeled with the patient's name and designated Sigmoid biopsy. The specimen consists of one irregular fragment of light miller soft tissue that measures 0.2 x 0.2 x 0.1 cm. The specimen is totally submitted in one cassette. 02/05/2024 TC:5 CPT:70472c7
--- NOTE | 2024-02-05 11:44 | OP.COLON_ITS ---
Patient Name: Ana Alexander Procedure Date: 02/05/2024 11:03 AM Date of : 1970 Age: 53 Procedure: Colonoscopy Indications: Screening for colorectal malignant neoplasm Providers: Yamel Gallo MD Referring MD: Chani Khan Medicines: Monitored Anesthesia Care Patient Profile: This is a 53 year old female. Last Colonoscopy: none. The patient's first colonoscopy is today. Complications: No immediate complications. Procedure: Pre-Anesthesia Assessment: - Prior to the procedure, a History and Physical was performed, and patient medications and allergies were reviewed. The patient's tolerance of previous anesthesia was also reviewed. The risks and benefits of the procedure and the sedation options and risks were discussed with the patient. All questions were answered, and informed consent was obtained. Prior Anticoagulants: The patient has taken no anticoagulant or antiplatelet agents. ASA Grade Assessment: Per anesthesia. After reviewing the risks and benefits, the patient was deemed in satisfactory condition to undergo the procedure. After I obtained informed consent, the scope was passed under direct vision. Throughout the procedure, the patient's blood pressure, pulse, and oxygen saturations were monitored continuously. The Colonoscope was introduced through the anus and advanced to the cecum, identified by the appendiceal orifice, ileocecal valve and palpation. The colonoscopy was performed without difficulty. The patient tolerated the procedure well. The quality of the bowel preparation was good. Scope In: 11:13:44 AM Scope Withdrawal Time 0 hours 14 minutes 45 seconds Scope Out: 11:39:28 AM Total Procedure Duration Time 0 hours 25 minutes 44 seconds Findings: The perianal and digital rectal examinations were normal. Three sessile polyps were found in the sigmoid colon, descending colon and ascending colon. The polyps were less than 5 mm in size. These polyps were removed with a cold biopsy forceps. Resection and retrieval were complete. The exam was otherwise without abnormality on direct and retroflexion views. A few small-mouthed diverticula were found in the sigmoid colon. Impression: - Three less than 5 mm polyps in the sigmoid colon, in the descending colon and in the ascending colon, removed with a cold biopsy forceps. Resected and retrieved. - The examination was otherwise normal on direct and retroflexion views. - Diverticulosis in the sigmoid colon. Recommendation: - Discharge patient to home. - Resume previous diet. - Continue present medications. - Await pathology results. - Repeat colonoscopy in 5 years for surveillance based on pathology results. Procedure Code(s): --- Professional --- 13112, PT, Colonoscopy, flexible; with biopsy, single or multiple Diagnosis Code(s): --- Professional --- Z12.11, Encounter for screening for malignant neoplasm of colon D12.5, Benign neoplasm of sigmoid colon D12.4, Benign neoplasm of descending colon D12.2, Benign neoplasm of ascending colon CPT copyright 2021 [employer]. All rights reserved. The codes documented in this report are preliminary and upon skiver uppers or linings review may be revised to meet current compliance requirements. MD Yamel Martinez MD 02/05/2024 11:44:16 AM This report has been signed electronically. Number of Addenda: 0 Note Initiated On: 02/05/2024 11:03 AM
--- NOTE | 2024-02-05 11:44 | OP.CCLET_ITS ---
02/05/2024 Chani Khan Re : Colonoscopy procedure for Ana Kelylr Bill This procedure was performed on Monday, February 05, 2024. My impressions and recommendations are as follows: Impressions : - Three less than 5 mm polyps in the sigmoid colon, in the descending colon and in the ascending colon, removed with a cold biopsy forceps. Resected and retrieved. - The examination was otherwise normal on direct and retroflexion views. - Diverticulosis in the sigmoid colon. Recommendations : - Discharge patient to home. - Resume previous diet. - Continue present medications. - Await pathology results. - Repeat colonoscopy in 5 years for surveillance based on pathology results. My findings are described in the full procedure note, which is enclosed. If I can be of further assistance, please feel free to contact me at Doctor phone number(s): , Work: . Sincerely, MD Yamel Martinez MD 02/05/2024 11:44:16 AM This report has been signed electronically.
--- NOTE | 2024-02-05 11:48 | PCM.POST.ANE ---
Anesthesia: Postop Eval I Current Vital Signs Temperature: 97.9 F Pulse Rate: 86 Blood Pressure: 124/83 Respiratory Rate: 18 Pulse Ox: 99 Oxygen Delivery Method: Room Air Assessment Airway patent: Yes Spontaneous unlabored respirations: Yes Mental status: Awake and Calm nausea: No Vomiting: No Anesthesia Complication: No Fluid Hydration Crystalloid volume administer (ml): 110 Total IV fluid infused: 110 Progress Note Anesthesia document: Postop Eval 1 completed: Yes
--- NOTE | 2024-02-05 13:39 | PCM.POSTANE2 ---
Anesthesia Postop Eval I Sum Postop Eval Completion status Anesthesia document: Postop Eval 1 completed: Yes Anesthesia Postop Eval I Summary Anesthesia Postop Eval I Summary: Anesthesia Postop Eval I: Assessment Summary Airway patent Yes 02/05/24 11:49 [email or web address] Spontaneous unlabored Yes 02/05/24 11:49 [email or web address] respirations Mental status Awake,Calm 02/05/24 11:49 [email or web address] nausea No 02/05/24 11:49 [email or web address] Vomiting No 02/05/24 11:49 [email or web address] Anesthesia Postop Eval I: Fluid Summary Crystalloid volume administer 110 02/05/24 11:49 [email or web address] (ml) Colloids volume administered ( ml) Blood Product volume administered (ml) Total IV fluid infused 110 02/05/24 11:49 [email or web address] Anesthesia Postop Eval I: Summary Notes Anesthesia Complication No 02/05/24 11:49 [email or web address] Anesthesia Complication Comment: Post-operative progress note Anesthesia: Postop Eval II Evaluation Mental status: Awake Pain Level: 0 nausea: No Vomiting: No
== END 2024-02-05 12:33 | disposition home or self-care (01) ==
LOC: EN 08:29 → AC 08:31
PROVIDERS: PCP Nurse Practitioner Primary Care; Referring Provider Nurse Practitioner Primary Care; Visit Provider Surgery
PROC: 0DJD8ZZ Inspection of Lower Intestinal Tract, Via Natural or Artificial Opening Endoscopic (ICD-10-PCS; CPT 45378; principal; 2024-02-05 09:40)
DX: Z12.11 Encounter for screening for malignant neoplasm of colon (principal); K57.30 Diverticulosis of large intestine without perforation or abscess without bleeding; K63.5 Polyp of colon; E78.5 Hyperlipidemia, unspecified; J45.909 Unspecified asthma, uncomplicated; E03.9 Hypothyroidism, unspecified; Z79.51 Long term (current) use of inhaled steroids; Z79.899 Other long term (current) drug therapy
CPT/HCPCS: 45380; 88305; A4216; J2405

== ENCOUNTER → 2024-06-10 | Outpatient (CLI) | payer OTHER, SELFPAY ==
[2024-06-10 19:00] LABS: ALB/GLOB Ratio 1.3 RATIO (0.9-2.4); AST(SGOT) 24 U/L (<=31); Alanine Aminotransfer ALT/SGPT 32 U/L (<=34); Albumin, Serum 3.9 g/dL (3.5-5.0); Alkaline Phosphatase 92 U/L (35-104); Anion Gap 10 (5-15); BUN 13 mg/dL (4-19); BUN/Creat Ratio 16.9 RATIO (10-20); Calcium,Total 9.2 mg/dL (7.6-11.0); Carbon Dioxide 25.7 mmol/L (21.0-32.0); Chloride 107 mmol/L (98-108); Creatinine, Serum 0.74 mg/dL (0.70-1.20); EST Glomerular Filtration Rate 96 (>60); Glucose 77 mg/dL (70-99); Potassium 3.4 mmol/L (3.3-5.1); Protein, Total 6.9 g/dL (5.9-8.4); Sodium Level 143 mmol/L (133-145); Thyroid Stim Hormone (TSH) 0.243 uIU/mL (0.300-4.200); Total Bilirubin 0.24 mg/dL (0.00-1.30)
[2024-06-10 19:58] LABS: Vitamin B12 245 pg/mL (180-914)
[2024-06-13 10:08] LABS: PROLACTIN 12.4 ng/mL (3.6-25.2)
== END | disposition home or self-care (01) ==
LOC: MTLAB 16:33
PROVIDERS: Nurse Practitioner Family; PCP Nurse Practitioner Primary Care; Referring Provider Internal Medicine Endocrinology, Diabetes & Metabolism; Visit Provider Internal Medicine Endocrinology, Diabetes & Metabolism
DX: E87.6 Hypokalemia (principal); E03.8 Other specified hypothyroidism; E06.3 Autoimmune thyroiditis; E22.1 Hyperprolactinemia
CPT/HCPCS: 80053; 82306; 82607; 84146; 84439; 84443

== ENCOUNTER → 2024-11-20 | Outpatient (CLI) | payer OTHER, SELFPAY ==
--- OUTSIDE RECORDS SUMMARY | 2024-11-20 07:29 | XMS RPT_ITS | CCD ---
Author Organization [facility] Care Team Providers Care Environmental Science Program Director Name Role Phone Chani Mark N Unavailable Elham Markica N Unavailable Chani Mark N Unavailable Yolanda Pena DC Unavailable Deedee Chani N Unavailable Deedee Chani N Unavailable Dr. Stephen Black Primary Care Provider Dr. Stephen Black Referring Provider [phone] ETHAN Hatch Attending Provider [phone] Dr. Neris Ayala Attending Provider [phone] Dr. Stephen Black Primary Care Provider Dr. Stephen Black Referring Provider [phone] Bill CASTANEDA, [place] [facility] Chani Primary Care Provider Bill CASTAN[place], [place] Chani Referring Provider [phone] Dr. Neris Ayala Attending Provider [phone] Dr. Nersi Ayala Referring Provider [phone] Dr. Neris Ayala Other Provider [phone] Dr. Davon Rae Attending Provider [phone] Bill CASTANEDA, [place] Chani Primary Care Provider Bill CASTANEDA, [place] Chani Referring Provider [phone] Dr. Neris Ayala Attending Provider Dr. Stephen Black Referring Provider [phone] LEONEL Hatch-Salima Hooker Attending Provider Bill [place] [facility], [place] [facility] Chani Primary Care Provider [place] [facility], [place] [facility] Chani Referring Provider 1([facility] )[phone] Dr. Arnulfo Mishra Attending Provider 1([facility])[phone] Bill [place] [facility], Chani Primary Care Provider [phone] Bill [place] [facility], Chani Other Provider Dr. Arnulfo Mishra MD Attending Provider [phone] Dr. Arnulfo Mishra MD Referring Provider Bill [place] [facility], Chani Referring Provider 1([facility])[phone] [place] [facility], Chani Primary Care Provider 1([facility] )[phone] Susana MARLEY, Dr. Villasenor Attending Provider [place] [facility], Chani Referring Provider 1([facility])[phone] Chandana Velásquez Attending Provider Chandana Velásquez Attending Unavailable Bill [place] [facility], Chani Referring Unavailable [place] [facility] [facility], Chani Primary Care Unavailable Bill [place] [facility], Chani Referring Unavailable [place] [facility] [facility], Chani Primary Care Unavailable Robotham, Yamel Attending Unavailable Arnulfo Mishra Attending Unavailable Arnulfo Mishra Referring Unavailable Bill [place] [facility], Chani Consulting Unavailable [place] [facility] [facility], Chani Primary Care Unavailable [place] [facility], Chani Primary Care Unavailable Assessment, Health Risk Referring Unavaila ble Assessment, Health Risk Attending Unavaila ble Thais Echeverria Attending Unavailable [place] [facility] [facility], Chani Referring Unavailable [place] [facility] [facility], Chani Primary Care Unavailable TadJonii Attending Unavailable [place] [facility] [facility], Chani Referring Unavailable Bill [place] [facility], Chani Primary Care Unavailable Alyson Mishra Attending Unavailable [place] [facility], Chani Primary Care Unavailable [place] [facility] [facility], Chani Referring Unavailable [place] [facility], Chani Primary Care Unavailable Robotham, Yamel Consulting Unavailable Robotham, Yamel Attending Unavailable Allergies Allergy Classification Reported Allergen(s) Allergy Type Date of Onset Reaction(s) Facility (6 sources) amoxicillin / clavulanate drug allergy 3 [facility] Work Phone: (12 sources) Amoxicillin Drug Allergy 1 Diarrhea [facility] Comment on above: Blood in stool (12 sources) Clavulanate Drug Allergy 1 Diarrhea [facility] Comment on above: Blood in stool (13 sources) Shellfish; Translations: [shellfish derived] Allergy to substance 1 Angioedema [facility] (1 source) Amoxicillin Drug Allergy 5 [facility] (1 source) Clavulanate Drug Allergy 5 [facility] Medications Current Medications Medication Drug Class(es) Dates Sig (Normalized) Sig (Original) Albuterol (12 sources) beta2-Adrenergic Agonist Start: 04-29-2017 Albuterol Sulfate 1 INHALER inhaler Active 1 - 2 NMA INHALATION EVERY 4 HOURS NEEDED as needed for Wheezing April 29, 2017 1:00am Start: 04-29-2017 take 1 puff(s) by in halation every four hours as needed Albuterol Sulfate Active 1 - 2 PUFF INHALATION EVERY 4 HOURS NEEDED April 29, 2017 1:00am Start: 04-29-2017 take 1 puff(s) by in halation every four hours as needed Albuterol Sulfate Active 1 - 2 PUFF INHALATION EVERY 4 HOURS NEEDED April 29, 2017 12:00am Start: 04-29-2017 take 1 puff(s) by in halation every four hours as needed Albuterol Sulfate Active 1 - 2 PUFF INHALATION EVERY 4 HOURS NEEDED April 29, 2017 1:00am busPIRone hydrochloride 10 mg oral tablet (1 source) Start: 10-20-2024 take 1 tablet by mouth twice daily Buspirone 10 mg tablet Active 10 mg PO TWICE A DAY October 20, 2024 12:00am cabergoline 0.5 mg oral tablet (20 sources) Ergot Derivative Start: 06-14-2024 take 1 tablet by mouth every week Cabergoline 0.5 mg tablet Active 0.5 mg PO .once a week 16 June 14, 2024 3:58pm Start: 02-13-2022 End: 06-14-2024 take 1 tablet by mouth two times weekly Cabergoline 0.5 mg tablet Discontinued 0.5 mg PO TWICE A WEEK 20 03March 06, 2023 1:20pm June 14, 2023 9:38am Hyperprolactinemia Hyperprolactinemia 1 tablet twice/week Start: 07-21-2019 End: 09-05-2022 take 1 tablet by mouth every week Cabergoline 0.5 mg tablet Discontinued 0.5 mg PO .weekly 12 December 19, 2021 7:19am February 13, 2022 12:15pm Start: 07-21-2019 End: 07-21-2019 take 1 tablet by mouth two times weekly Cabergoline 0.5 mg tablet Discontinued 0.5 mg PO TWICE A WEEK 01 25July 21, 2019 12:00am July 21, 2019 4:34pm fluticasone propionate 0.05 mg/actuat metered dose nasal spray (20 sources) Corticosteroid Start: 04-14-2017 Fluticasone Pr opionate 50 mcg/actuation spray,suspension Active 50 ug INTRANASAL DAILY NEEDED as needed for allergy symptoms April 14, 2017 1:00am Start: 04-14-2017 Fluticasone Pr opionate Active 50 MCG INTRANASAL ONCE April 14, 2017 1:00am Start: 02-27-2016 End: 05-19-2019 Fluticasone Propionate 1 INH ALER inhaler Discontinued 2 NMA INHALATION TWICE A DAY February 27, 2016 1:00am May 19, 2019 8:08am ASTHMA Start: 02-27-2016 End: 05-19-2019 take 1 puff(s) by inhalation twice daily Fluticasone Propionate Discontinued 2 PUFF INHALATION TWICE A DAY February 27, 2016 1:00am May 19, 2019 8:08am FLOVENT HFA 110 MCG/ACT AERO 2 times daily FLUTICASONE PROPIONATE HFA [id number] John Dominguez Fluticasone Propion-Salmeterol (20 sources) Corticosteroid, beta2-Adrenergic Agonist Start: 05-19-2019 take 1 puff(s) by inhalation twice daily Fluticasone Propion-Salmeterol (Advair Hfa) 230-21 mcg/actuation HFA aerosol inhaler Active 2 PUFF INHALATION TWICE A DAY May 19, 2019 9:12am Start: 05-19-2019 End: 05-19-2019 take 1 puff(s) by inhalation twice daily Fluticasone Propion-Salmeterol (Advair Hfa) 115-21 mcg/actuation HFA aerosol inhaler Discontinued 2 PUFF INHALATION TWICE A DAY May 19, 2019 8:08am May 19, 2019 9:06am Start: 05-19-2019 Fluticasone Pr opion-Salmeterol (Advair Hfa) 230-21 mcg/actuation HFA aerosol inhaler Active 2 NMA INHALATION TWICE A DAY May 19, 2019 12:00am Start: 05-19-2019 End: 05-19-2019 Fluticasone Propion-Salmeter ol (Advair Hfa) 115-21 mcg/actuation HFA aerosol inhaler Discontinued 2 NMA INHALATION TWICE A DAY May 19, 2019 12:00am May 19, 2019 9:06am Start: 05-19-2019 take 1 puff(s) by in halation twice daily Fluticasone Propion-Salmeterol (Advair Hfa) 230-21 mcg/actuation HFA aerosol inhaler Active 2 PUFF INHALATION TWICE A DAY May 18, 2019 11:00pm Start: 05-19-2019 End: 05-19-2019 take 1 puff(s) by inhalation twice daily Fluticasone Propion-Salmeterol (Advair Hfa) 115-21 mcg/actuation HFA aerosol inhaler Discontinued 2 PUFF INHALATION TWICE A DAY May 18, 2019 11:00pm May 19, 2019 8:06am Start: 05-19-2019 take 1 puff(s) by in halation twice daily Fluticasone Propion-Salmeterol (Advair Hfa) 230-21 mcg/actuation HFA aerosol inhaler Active 2 PUFF INHALATION TWICE A DAY May 19, 2019 12:00am Start: 05-19-2019 End: 05-19-2019 take 1 puff(s) by inhalation twice daily Fluticasone Propion-Salmeterol (Advair Hfa) 115-21 mcg/actuation HFA aerosol inhaler Discontinued 2 PUFF INHALATION TWICE A DAY May 19, 2019 12:00am May 19, 2019 9:06am lansoprazole 15 mg delayed release oral capsule (7 sources) Proton Pump Inhibitor Start: 02-20-2022 take 1 capsule by mouth once daily Lansoprazole 15 mg Capsule,Delayed Release(Dr/Ec) Active 15 mg PO DAILY February 20, 2022 1:00am omeprazole 20 mg delayed release oral tablet (5 sources) Proton Pump Inhibitor Start: 05-19-2019 take 1 tablet by mouth once daily Omeprazole Magnesium (Prilosec Otc) 20 mg tablet,delayed release (DR/EC) Active 20 MG PO DAILY May 19, 2019 12:00am PARoxetine mesylate 7.5 mg oral capsule (3 sources) Serotonin Reuptake Inhibitor Start: 04-20-2024 End: 07-01-2024 take 1 capsule by mouth at bedtime Paroxetine Mesylate(Menop.Sym) 7.5 mg capsule Active 7.5 mg PO AT BEDTIME 30 6 July 01, 2024 8:22am Completed/Discontinued Medications Medication Drug Class(es) Dates Sig (Normalized) Sig (Original) acetaminophen 33.3 mg/ml oral solution (12 sources) Start: 05-19-2019 End: 09-07-2021 take 1000 mg by mouth every six hours as needed Acetaminophen 500 mg/15 mL liquid Discontinued 1000 mg PO EVERY 6 HOURS as needed May 19, 2019 12:00am September 07, 2021 11:34am acetaminophen 300 mg / codeine phosphate 30 mg oral tablet (12 sources) Opioid Agonist Start: 05-01-2017 End: 05-19-2019 Acetaminophen-Codei ne 1 TABLET tablet Discontinued 1 {tbl} PO EVERY 4 HOURS NEEDED as needed for Mod-Severe Pain (4-10/10) 10 2 0 May 01, 2017 1:00am May 19, 2019 8:07am Postoperative abdominal pain Unspecified abdominal pain Start: 05-01-2017 End: 05-19-2019 take 1 tablet by mouth every four hours as needed Acetaminophen-Codeine Discontinued 1 TABLET PO EVERY 4 HOURS NEEDED 10 2 May 01, 2017 1:00am May 19, 2019 8:07am acetaminophen 20 mg/ml / HYDROcodone bitartrate 0.667 mg/ml oral solution (12 sources) Opioid Agonist Start: 02-27-2016 End: 04-14-2017 take 1 mL by mouth every six hours as needed for pain Hydrocodone-Acetaminophen 1 BOTTLE solution Discontinued 7.5 mL PO EVERY 6 HOURS as needed for Pain 75 February 27, 2016 1:00am April 14, 2017 1:33pm Start: 02-27-2016 End: 04-14-2017 take 1 mL by mouth every six hours Hydrocodone-Acetaminophen Discontinued 7 .5 ML PO EVERY 6 HOURS 75 February 27, 2016 1:00am April 14, 2017 1:33pm acetaminophen 325 mg / oxyCODONE hydrochloride 5 mg oral tablet (7 sources) Opioid Agonist Start: 02-20-2022 End: 03-05-2022 Oxycodone-Acetaminophen (Percocet) 5-325 mg tablet Discontinued 1 {tbl} PO EVERY 6 HOURS as needed for pain 20 7 0 February 20, 2022 March 05, 2022 10:28am Status post laparoscopy-assisted vaginal hysterectomy Acquired absence of both cervix and uterus atorvastatin 20 mg oral tablet (12 sources) HMG-CoA Reductase Inhibitor Start: 05-19-2019 End: 05-19-2019 take 1 tablet by mouth once daily Atorvastatin 20 mg tablet Discontinued 20 mg PO DAILY May 19, 2019 12:00am May 19, 2019 9:05am benzonatate 100 mg oral capsule (12 sources) Non-narcotic Antitussive Start: 10-22-2020 End: 10-27-2020 take 1 capsule by mouth three times daily Benzonatate (Tessalon Perles) 100 mg capsule Discontinued 100 mg PO THREE TIMES A DAY 15 5 0 October 22, 2020 12:00am October 26, 2020 12:00am October 27, 2020 12:01am celecoxib 200 mg oral capsule (12 sources) Nonsteroidal Anti-inflammatory Drug Start: 09-10-2018 End: 05-19-2019 take 1 capsule by mouth once daily Celecoxib (Celebrex) 200 mg capsule Discontinued 200 mg PO DAILY 30 1 September 10, 2018 12:00am May 19, 2019 8:07am do not take with any other NSAIDS cephalexin 500 mg oral capsule (6 sources) Cephalosporin Antibacterial Start: 03-02-2022 End: 03-09-2022 take 1 capsule by mouth three times daily Cephalexin 500 mg capsule Discontinued 500 mg PO THREE TIMES A DAY 21 7 0 March 02, 2022 1:00am March 08, 2022 1:00am March 09, 2022 1:05am space evenly during waking hours cholecalciferol 0.05 mg oral capsule (4 sources) Vitamin D Start: 06-11-2022 End: 06-14-2023 take 1 capsule by mouth once daily Cholecalciferol (Vitamin D3) 50 mcg (2,000 unit) capsule Discontinued 50 ug PO DAILY June 11, 2022 12:00am June 14, 2023 9:32am ciprofloxacin 500 mg oral tablet (6 sources) Quinolone Antimicrobial Start: 03-05-2022 End: 03-12-2022 take 1 tablet by mouth twice daily Ciprofloxacin Hcl (Cipro) 500 mg tablet Discontinued 500 mg PO TWICE A DAY 14 7 0 March 05, 2022 1:00am March 11, 2022 1:00am March 12, 2022 1:04am ethinyl estradiol 0.03 mg / norethindrone acetate 1.5 mg oral tablet (12 sources) Estrogen Start: 09-10-2018 End: 09-07-2021 Norethindrone Ac-Eth Estradiol (Junel 1.530 (21)) 1.5-30 mg-mcg tablet Discontinued 1 {tbl} PO DAILY September 10, 2018 12:00am September 07, 2021 11:35am Fezolinetant (2 sources) Start: 04-15-2024 End: 04-20-2024 take 1 tablet by mouth once daily Fezolinetant (Veozah) 45 mg tablet Discontinued 45 mg PO daily 26 03April 15, 2024 1:00am April 20, 2024 2:00pm Start: 04-15-2024 End: 04-20-2024 take 1 tablet by mouth once daily Fezolinetant (Veozah) 45 mg tablet Discontinued 45 mg PO daily April 15, 2024 1:00am April 20, 2024 2:00pm 12 hr guaiFENesin 600 mg extended release oral tablet (12 sources) Start: 10-22-2020 End: 10-29-2020 take 1 tablet by mouth twice daily, then take 1 tablet by mouth every twelve hours Guaifenesin (Mucinex) 600 mg tablet extended release 12hr Discontinued 600 mg PO TWICE A DAY 14 7 0 October 22, 2020 12:00am October 28, 2020 12:00am October 29, 2020 12:01am LORazepam 1 mg oral tablet (6 sources) Benzodiazepine ATIVAN 1 MG TABS as needed LORAZEPAM [id number] John Dominguez naproxen 500 mg oral tablet (20 sources) Nonsteroidal Anti-inflammatory Drug Start: 02-20-2022 End: 03-30-2022 take 1 tablet by mouth twice daily as needed for pain Naproxen 500 mg tablet Discontinued 500 mg PO TWICE DAILY NEEDED as needed for Pain 30 February 20, 2022 1:00am March 30, 2022 2:02pm Start: 04-29-2017 End: 05-19-2019 take 1 tablet by mouth twice daily as needed for pain Naproxen 500 MG tablet Discontinued 500 mg PO TWICE A DAY as needed for Pain April 29, 2017 1:00am May 19, 2019 8:08am Start: 09-03-2016 NAPROXEN 500 M G TABS NAPROXEN [id number] Gabo Pryor ondansetron 4 mg disintegrating oral tablet (6 sources) Serotonin-3 Receptor Antagonist Start: 03-07-2022 End: 03-30-2022 take 1 tablet by mouth every eight hours as needed for nausea and vomiting Ondansetron 4 mg tablet,disintegrating Discontinued 4 mg PO Q8H as needed for nausea and vomiting 30 0 March 07, 2022 1:00am March 30, 2022 2:02pm predniSONE 50 mg oral tablet (12 sources) Start: 10-22-2020 End: 10-27-2020 take 1 tablet by mouth once daily Prednisone 50 mg tablet Discontinued 50 mg PO DAILY 5 5 0 October 22, 2020 12:00am October 26, 2020 12:00am October 27, 2020 12:01am promethazine hydrochloride 12.5 mg oral tablet (12 sources) Phenothiazine Start: 02-22-2022 End: 03-05-2022 take 1 tablet by mouth every six hours as needed for nausea and vomiting Promethazine 12.5 mg tablet Discontinued 12.5 mg PO EVERY 6 HOURS as needed for nausea and vomiting 90 4 February 23, 2022 1:00am March 05, 2022 10:28am sertraline 50 mg oral tablet (20 sources) Serotonin Reuptake Inhibitor Start: 05-19-2019 End: 05-19-2019 take 1 tablet by mouth once daily Sertraline 50 mg tablet Discontinued 50 mg PO DAILY May 19, 2019 12:00am May 19, 2019 9:06am Start: 02-27-2016 End: 09-10-2018 take 1 tablet by mouth once daily Sertraline 50 MG tablet Discontinued 50 mg PO DAILY February 27, 2016 1:00am September 10, 2018 9:59am levothyroxine sodium 0.125 mg oral tablet (20 sources) l-Thyroxine Start: 06-14-2023 End: 06-12-2024 take 1 tablet by mouth once daily Levothyroxine 125 mcg tablet Discontinued 125 ug PO DAILY 90 December 17, 2023 2:58pm June 12, 2024 9:17am Start: 12-26-2022 End: 06-14-2023 take 1 tablet by mouth once daily Levothyroxine 150 mcg tablet Discontinued 150 ug PO DAILY 90 December 26, 2022 10:52am June 14, 2023 9:37am 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 Other specified hypothyroidism Autoimmune thyroiditis Start: 07-05-2022 End: 12-26-2022 Levothyroxine 150 mcg tablet Discontinued 150 ug PO DAILY 90 July 06, 2022 12:44pm December 26, 2022 10:52am 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 Other specified hypothyroidism Autoimmune thyroiditis 1.5 tabs on Sundays, 1 tab Saturday-Saturday Start: 12-19-2021 End: 07-05-2022 take 1 tablet by mouth once daily Levothyroxine 150 mcg tablet Discontinued 150 ug PO DAILY 90 December 19, 2021 7:44am July 05, 2022 4:40pm Start: 02-27-2016 End: 12-19-2021 take 1 tablet by mouth once daily Levothyroxine 175 mcg tablet Discontinued 175 ug PO DAILY 30 May 16, 2021 2:45pm June 08, 2021 2:04pm THYROID take 1 tablet by once daily SYNTHROID 175 MCG TABS One tablet by mouth daily LEVOTHYROXINE SODIUM [id number] John Dominguez Tirzepatide (Weight Loss) (1 source) Start: 08-19-2024 End: 10-20-2024 Tirzepatide (Weight Loss) (Zepbound) 2.5 mg/0.5 mL pen injector Discontinued 2.5 mg SC EVERY WEEK 2 3 August 19 2025 12:00am October 20, 2024 5:08pm Obesity Obesity, class 2 Other obesity due to excess calories Body mass index [BMI] 39.0-39.9, adult tiZANidine 2 mg oral capsule (12 sources) Central alpha-2 Adrenergic Agonist Start: 09-10-2018 End: 05-19-2019 take 1 capsule by mouth three times daily as needed Tizanidine 2 mg capsule Discontinued 2 mg PO THREE TIMES A DAY as needed for muscle spasticity 20 September 10, 2018 12:00am May 19, 2019 8:08am caution: may cause increased sedation with hormone replacement therapy 24 hr venlafaxine 75 mg extended release oral capsule (11 sources) Serotonin and Norepinephrine Reuptake Inhibitor Start: 01-03-2023 End: 04-20-2024 take 1 capsule by mouth once daily Venlafaxine 75 mg capsule,extended release 24hr Discontinued 150 mg PO DAILY 60 30 February 10, 2024 10:50am April 20, 2024 2:00pm Start: 05-21-2022 End: 01-03-2023 take 1 capsule by mouth once daily Venlafaxine (Effexor Xr) 37.5 mg capsule,extended release 24hr Discontinued 37.5 mg PO DAILY 30 May 21, 2022 12:00am January 03, 2023 9:58am Problems Active Problems Problem Classification Problem Date Documented Da te Episodic/Chronic Abdominal pain (1 source) Female genital organ symptoms; Translations: [Pelvic and perineal pain] 09-24-2024 Episodic Anxiety disorders (2 sources) Anxiety; Translations: [Anxiety disorder, unspecified] 02-03-2024 Chronic Comment on above: ON MED Bacterial infection; unspecified site (16 sources) Streptococcus agalactiae infection; Translations: [Streptococcal infection, unspecified site] 03-05-2022 Episodic Comment on above: (B) Genitourinary symptoms and ill-defined conditions (1 source) Incontinence; Translations: [Mixed incontinence] 09-24-2024 Chronic Menopausal disorders (2 sources) Menopausal flushing; Translations: [Menopausal and female climacteric states] 12-19-2023 Chronic Nutritional deficiencies (2 sources) Vitamin D deficiency; Translations: [Vitamin D deficiency, unspecified] 06-11-2024 Chronic Other aftercare (1 source) Encounter for other specified surgical aftercare; Translations: [Other specified aftercare following surgery] 03-30-2022 Episodic Other connective tissue disease (1 source) Pelvic floor dysfunction; Translations: [Other specified disorders of muscle] 09-24-2024 Episodic Other diseases of bladder and urethra (1 source) Overactive bladder; Translations: [Overactive bladder] 09-24-2024 Chronic Other ear and sense organ disorders (12 sources) Otalgia, left ear; Translations: [Earache on left] 04-29-2019 Episodic Other endocrine disorders (13 sources) Hyperprolactinemia; Translations: [Hyperprolactinemia] 02-08-2022 Chronic Other endocrine disorders (10 sources) Hyperprolactinemia; Translations: [Other and unspecified anterior pituitary hyperfunction] Chronic Other female genital disorders (10 sources) Abnormal uterine bleeding; Translations: [Abnormal uterine and vaginal bleeding, unspecified] 02-08-2022 Chronic Comment on above: emb done. 10cm with 2.6cm fibroid [facility] bs. 4 . Other female genital disorders (9 sources) Abnormal uterine and vaginal bleeding, unspecified; Translations: [Unspecified disorders of menstruation and other abnormal bleeding from female genital tract] Chronic Other nutritional; endocrine; and metabolic disorders (5 sources) Obesity; Translations: [Other obesity] 12-19-2023 Chronic Residual codes; unclassified (7 sources) Past history of procedure; Translations: [Other specified postprocedural states] 02-08-2022 Episodic Residual codes; unclassified (7 sources) History of vaginal hysterectomy; Translations: [Acquired absence of both cervix and uterus] 02-20-2022 Episodic Comment on above: [facility] brittany aub Residual codes; unclassified (3 sources) Acquired absence of both cervix and uterus; Translations: [Acquired absence of both cervix and uterus] Episodic Thyroid disorders (20 sources) 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; Translations: [Other specified hypothyroidism] Chronic Past or Other Problems Problem Classification Problem Date Documented Da te Episodic/Chronic Fluid and electrolyte disorders (1 source) Hypokalemia; Translations: [Hypokalemia] Onset: 06-15-2024 Episodic Nonmalignant breast conditions (7 sources) Solitary cyst of breast; Translations: [Galactorrhea not associated with childbirth] Onset: 06-12-2024 11-05-2012 Episodic Other bone disease and musculoskeletal deformities (12 sources) Segmental and somatic dysfunction; Translations: [Segmental and somatic dysfunction of thoracic region] Onset: 05-22-2016 05-22-2016 Episodic Other connective tissue disease (1 source) Impingement syndrome of left shoulder; Translations: [Impingement syndrome of left shoulder] Onset: 09-03-2016 09-13-2016 Episodic Other non-traumatic joint disorders (5 sources) Shoulder pain; Translations: [Impingement syndrome of shoulder region] Onset: 09-03-2016 09-13-2016 Episodic Other screening for suspected conditions (not mental disorders or infectious disease) (4 sources) Patient encounter status; Translations: [Encounter for screening for malignant neoplasm of colon] Onset: 02-14-2024 12-24-2023 Episodic Sprains and strains (3 sources) Strain of unspecified muscle, fascia and tendon at shoulder and upper arm level, left arm, initial encounter; Translations: [Strain of unspecified muscle, fascia and tendon at shoulder and upper arm level, left arm, initial encounter] Onset: 09-03-2016 09-13-2016 Episodic Results Test Name Value Interpretation Reference Range Facility Urgent Care Visit Reporton 0 10-20-2024 Urgent Care Visit Report [facility] [address], [address] [place] [id number] OFFICE VISIT Date of Service: 10/20/24 MR#: [id number] Acct: [id number] Name: AP ALEXANDER Rep #: [id number] : [id number] Provider: PASTORA Beltran Age/Sex: 54/F Location: [facility] Status: Signed Intake Vital Signs 06/12/24 08:23 10/20/24 17:08 Height 5 ft 7 in 5 ft 7 in Weight: 250 lb 2 oz 250 lb BMI 39.2 39.1 BP 135/84 H 128/78 H Blood Pressure Location Rt brachial Lt brachial Position Sitting Sitting Pulse 81 90 Pulse Source Monitor Monitor Temp 97.9 F Temp Source Oral Pulse Oximetry (%) 95 96 Oxygen Delivery Method room air room air Intake Visit Reasons: EAR PAIN, BODY ACHES, Chief Complaint: Prolactin Allergies shellfish derived Allergy (Verified 04/18/25 08:25) Angioedema amoxicillin (From Augmentin) Adverse Reaction (Verified 06/12/24 08:25) Diarrhea clavulanic acid (From Augmentin) Adverse Reaction (Verified 06/12/24 08:25) Diarrhea Medications ???Medication ???Instructions ???Recorded ???Confirmed ???Type fluticasone propionate 50 50 mcg intranasal DAILY PRN PRN 10/20/24 History mcg/actuation nasal allergy symptoms spray,suspension albuterol sulfate 90 mcg/actuation 1 - 2 puff inhalation Q4H PRN DE N 04/29/17 10/20/24 History aerosol inhaler Wheezing fluticasone propionate 230 2 puff inhalation BID 05/19/19 History mcg-salmeterol 21 mcg/actuation HFA inhaler (Advair HFA) lansoprazole 15 mg capsule,delayed 15 mg PO DAILY 02/20/22 10/20/24 History release levothyroxine 125 mcg tablet 125 mcg PO DAILY #90 tabs 06/12/24 10/20/24 Rx cabergoline 0.5 mg tablet 0.5 mg PO .once a week #16 tabs 10/20/24 Rx paroxetine mesylate(menop.sym ) 7.5 7.5 mg PO QHS #30 caps 07/01/24 10/20/24 Rx mg capsule benzonatate 200 mg capsule 200 mg PO TID PRN cough #20 caps 0 10/20/24 10/20/24 Rx buspirone 10 mg tablet 10 mg PO BID 10/20/24 10/20/24 His tory dexamethasone 6 mg tablet 6 mg PO DAILY #5 tabs 10/20/24 Rx Nurse's Note: Congestion, runny nose, right ear pain, headache, body aches, sinus pressure, chills. [facility] Medical History (Updated 09/24/24 @ 08:42 by Ynes Glover) Pelvic floor dysfunction Kidney stones IBS (irritable bowel syndrome) Stroke UTI (urinary tract infection) Arthrosis Obesity Low iron Shortness of breath on exertion Streptococcus agalactiae infection Infection due to ESBL-producing Escherichia coli Wears glasses Cancer Anxiety Alcohol use Thyroid disease Gastric reflux Non-smoker Status post hysteroscopy Hyperprolactinemia Hypothyroidism Hyperlipidemia Female fertility problems Asthma Shoulder pain Surgical History (Updated 09/24/24 @ 08:42 by Ynes Glover) History of hysteroscopy H/O: hysterectomy History of [facility] History of D C S/P laparoscopy Glomus tumor Hx of cholecystectomy Family History (Updated 09/24/24 @ 08:44 by Ynes Glover) Other A-fib Anxiety Asthma Blood clot associated with vein wall inflammation COPD (chronic obstructive pulmonary disease) Celiac disease Coagulation disorder Cystic fibrosis Endometriosis Heart disease Hypercholesterolem ia Miscarriage Thyroid disorder Social History household members: spouse current occupational status: employed sexually active: Yes Smoking Status: Never smoker alcohol intake: current alcohol intake frequency: a few times a week Alcohol type: wine and hard liquor substance use type: does not use what type of physical activity do you participate in: none seatbelt use: always do you feel safe at home: Yes additional social history: - Registration at [facility] ER HPI HPI Chief Complaint: Prolactin Details: AP ALEXANDER, is a 54 F who presents to the office today for initial evaluation at the time now clinic for approximately 3-day history of congestion, runny nose, right ear pain, headache, body aches, sinus pressure, chills; no c/o fever, cough, fatigue, sore throat, nausea/diarrhea. No complaints of chest pain or shortness of breath or dyspnea on exertion. No cqpl-tqv-rdpsbep products taken to assist. Several close contacts at work with similar URI complaints. No other associated symptoms and no alleviating/aggrav ating factors. ROS Const Constitutional: No other (as above) Exam Const General: cooperative, healthy appearing and no acute distress Orientation: alert, awake [facility] Head: normal to inspection Ears: hearing grossly normal bilaterally, external ears normal, TM's normal left/ erythematous and bulging right, and EAC's normal Nose: external nose normal, nares normal, septum normal and nasal discharge (more content not included)... Normal [facility] PROLACTIN 4465on 06-13-2024 PROLACTIN 12.4 ng/mL Normal 3.6-25.2 [facility] Comment on above: Result Comment: Perf ormed at: - [facility] [address] [id number] [employer] [place] Worker: Serge Frost PhD, Phone: [phone] Performed By: #### L 3100.5400, L506.1001, L503.0106 ####[facility] [address] [place], [place], [address] Endocrinology Visit Reporton 06-12-2024 Endocrinology Visit Report [facility] [address] [place], [place] [address] OFFICE VISIT Date of Service: 06/12/24 MR#: [id number] Acct: [id number] Name: AP ALEXANDER Rep #: [id number] : 1970 Provider: Ilya Valderrama Age/Sex: 53/F Location: [facility] [place] Status: Signed Intake Vital Signs 06/14/23 09:30 02/05/24 08:45 06/12/24 08:23 Height 5 ft 7 in 5 ft 7 in 5 ft 7 in Weight: 250 lb 2 oz BMI 39.2 BP 135/84 H Blood Pressure Location Rt brachial Position Sitting Pulse 81 Pulse Source Monitor Pulse Oximetry (%) 95 Oxygen Delivery Method room air Intake Visit Reasons: 1 Y FU Chief Complaint: Prolactin Is patient in pain?: No Allergies shellfish derived Allergy (Verified 06/12/24 08:25) Angioedema amoxicillin (From Augmentin) Adverse Reaction (Verified 06/12/24 08:25) Diarrhea clavulanic acid (From Augmentin) Adverse Reaction (Verified 06/12/24 08:25) Diarrhea Medications ???Medication ???Instructions ???Recorded ???Confirmed ???Type fluticasone propionate 50 50 mcg intranasal DAILY PRN PRN 06/12/24 History mcg/actuation nasal allergy symptoms spray,suspension albuterol sulfate 90 mcg/actuation 1 - 2 puff inhalation Q4H PRN DE N 04/29/17 06/12/24 History aerosol inhaler Wheezing fluticasone propionate 230 2 puff inhalation BID 05/19/19 History mcg-salmeterol 21 mcg/actuation HFA inhaler (Advair HFA) lansoprazole 15 mg capsule,delayed 15 mg PO DAILY 02/20/22 06/12/24 History release cabergoline 0.5 mg tablet 0.5 mg PO WE 02/03/24 06/12/24 His tory paroxetine mesylate(menop.sym ) 7.5 7.5 mg PO QHS #30 caps 04/20/24 06/12/24 Rx mg capsule levothyroxine 125 mcg tablet 125 mcg PO DAILY #90 tabs 06/12/24 06/12/24 Rx PFSH Medical History (Updated 06/12/24 @ 13:[address] Arnulfo Mishra MD) Obesity Low iron Shortness of breath on exertion Streptococcus agalactiae infection Infection due to ESBL-producing Escherichia coli Wears glasses Cancer Anxiety Alcohol use Thyroid disease Gastric reflux Non-smoker Status post hysteroscopy Hyperprolactinemia Hypothyroidism Hyperlipidemia Female fertility problems Asthma Shoulder pain Surgical History History of [facility] History of D C S/P laparoscopy Glomus tumor Hx of cholecystectomy Family History Other A-fib Anxiety Asthma COPD (chronic obstructive pulmonary disease) Celiac disease Hypercholesterolem ia Thyroid disorder Social History household members: spouse current occupational status: employed sexually active: Yes Smoking Status: Never smoker alcohol intake: current alcohol intake frequency: a few times a week Alcohol type: wine and hard liquor substance use type: does not use what type of physical activity do you participate in: none seatbelt use: always do you feel safe at home: Yes additional social history: - Registration at [facility] ER HPI HPI Chief Complaint: Prolactin Details: AP ALEXANDER, is a 53 F who presents to the office today for follow up. She has history of prolactinoma. No recent imaging studies. She is taking cabergoline 0.5 weekly. She has hypothyroidism and is taking levothyroxine. She had labs done earlier this week, waiting on prolactin dose. She is doing well. She would like to continue to wean off cabergoline if possible. She has gained weight. ROS Const Constitutional: Positive for fatigue; No weight change or change in appetite Eyes Eyes: No change in vision ENT ENT: No dizziness/vertigo or difficulty swallowing Cardio Cardiology: No chest pain at rest, chest pain with exertion, shortness of breath or palpitations Musc Musculoskeletal: No abnormal gait, joint pain, numbness or tingling Neuro Neurology: No abnormal gait, memory loss, numbness or tingling Psych Psychiatric: No change in appetite, No memory loss and No Thoughts of harming yourself/Others Resp Respiratory: No cough, chest congestion or shortness of breath Gastro GI: No abdominal pain, constipation, diarrhea or difficulty swallowing Genitourinary-Fema le: No burning urination Skin Skin: No itchy eyes or wounds Endo Endocrine: Positive for fatigue; No weight change Aller/Imm Allergy/Immunologi c: No itchy eyes Exam Const General: cooperative, healthy appearing, comfortable, no acute distress, well developed and not cushingoid Nutritional Appearance: well nourished Orientation: alert, awake and oriented x3 Other: skin tags HENMT Head: normal to inspection Ears: hearing grossly normal bilaterally Nose: external n (more content not included)... Normal [facility] Prolactin [Mass/Vol]Ordered By: Thais Echeverria on 06-12-2024 Prolactin 12.4 ng/mL 3.6-25.2 [facility] Comment on above: Performed at: [place] [id number] Director: Serge Frost PhD, Phone: [phone] Anion gap in Serum or Plasma Ordered By: Arnulfo Mishra on 06-10-2024 Anion gap [Moles/Vol] 10 mmol/L 5-15 [facility] BUN/creatinine ratioOrdered By: Arnulfo Mishra on 06-10-2024 Urea nitrogen/Creatinine [Mass ratio] 16.9 mg/mg 10- [facility] Bilirubin, totalOrdered By: Arnulfo Mishra on 06-10-2024 Bilirubin [Mass/Vol] 0.24 mg/dL Normal 0.00-1.30 [facility] Comment on above: Order Comment: REY Leach ADD DR OVIEDO TO THE LABS Performed By: #### L 500.4050, L506.0400, L501.9520 #### [facility] [address] [place], [address] Carbon dioxide, total [Moles /volume] in Central venous bloodOrdered By: Arnulfo Mishra on 06-10-2024 CO2 [Moles/Vol] 25.7 mmol/L Normal 21.0-32.0 [facility] Comment on above: Order Comment: REY Leach ADD DR OVIEDO TO THE LABS Performed By: #### L 500.4050, L506.0400, L501.9520 #### [facility] [address] [place], [address] Chloride assayOrdered By: Oswald Mishra on 06-10-2024 Chloride [Moles/Vol] 107 mmol/L Normal 98-108 [facility] Comment on above: Order Comment: REY Leach ADD DR OVIEDO TO THE LABS Performed By: #### L 500.4050, L506.0400, L501.9520 #### [facility] [address] [place], [address] Comprehensive Metabolic Prof martha 06-10-2024 ALK PHOS 92 U/L Normal 35-104 [facility] Comment on above: Order Comment: REY Leach ADD DR OVIEDO TO THE LABS Performed By: #### L 500.4050, L506.0400, L501.9520 #### [facility] [address] [place], [address] BUN/CRE 16.9 RATIO Normal 10-20 [facility] Comment on above: Order Comment: REY OVIEDO TO THE LABS Performed By: #### L 500.4050, L506.0400, L501.9520 #### [facility] [address] [place], [address] GAP 10 Normal 5-15 [facility] Comment on above: Order Comment: REY Leach ADD DR OVIEDO TO THE LABS Performed By: #### L 500.4050, L506.0400, L501.9520 #### [facility] [address] [place], [address] GFR/1.73 sq M.predicted among non-blacks MDRD (S/P/Bld) [Vol rate/Area] 96 mL/min/{1.73_m2} Normal >60 [facility] Comment on above: Order Comment: REY Leach ADD DR OVIEDO TO THE LABS Result Comment: mL/m in/1.73m2 CKD-EPI Creatinine Equation (2020) Performed By: #### L 500.4050, L506.0400, L501.9520 #### [facility] [address] [place], [address] T PROT 6.9 g/dL Normal 5.9-8.4 [facility] Comment on above: Order Comment: REY Leach ADD DR OVIEDO TO THE LABS Performed By: #### L 500.4050, L506.0400, L501.9520 #### [facility] [address] [place], [address] Comprehensive Metabolic Prof ilOrdered By: Arnulfo Mishra on 06-10-2024 AST [Catalytic activity/Vol] 24 U/L Normal <=31 [facility] Comment on above: Order Comment: REY Leach ADD DR OVIEDO TO THE LABS Performed By: #### L 500.4050, L506.0400, L501.9520 #### [facility] [address] [place], [address] GFR/1.73 sq M.predicted anat g non-blacks MDRD (S/P/Bld) [Vol rate/Area]Ordered By: Arnulfo Mishra on 06-10-2024 Estimated GFR (MDRD) Non-Af Amer 96 >60 [facility] Comment on above: mL/min/1.73m2 CKD-EP I Creatinine Equation (2020) Potassium measurement (mass/ volume)Ordered By: Arnulfo Mishra on 06-10-2024 Potassium [Moles/Vol] 3.4 mmol/L Normal 3.3-5.1 [facility] Comment on above: Order Comment: REY OVIEDO TO THE LABS Performed By: #### L 500.4050, L506.0400, L501.9520 #### [facility] [address] [place], [address] Serum creatinine measurement (mass/volume)Ordered By: Arnulfo Mishra on 06-10-2024 Creatinine [Mass/Vol] 0.74 mg/dL Normal 0.70-1.20 [facility] Comment on above: Order Comment: REY OVIEDO TO THE LABS Performed By: #### L 500.4050, L506.0400, L501.9520 #### [facility] [address] [place], [address] Serum globulin measurementOr dered By: Arnulfo Mishra on 06-10-2024 Globulin (S) [Mass/Vol] 3.0 g/dL Normal 2.2-4.2 [facility] Comment on above: Order Comment: REY VOIEDO TO THE LABS Performed By: #### L 500.4050, L506.0400, L501.9520 #### [facility] [address] [place], [address] Serum glucose measurement (m ass/volume)Ordered By: Arnulfo Mishra on 06-10-2024 Glucose [Mass/Vol] 77 mg/dL Normal 70-99 [facility] Comment on above: Order Comment: REY OVIEDO TO THE LABS Performed By: #### L 500.4050, L506.0400, L501.9520 #### [facility] [address] [place], [address] Serum or plasma alanine esparza otransferase (ALT) measurementOrdered By: Arnulfo Mishra on 06-10-2024 ALT [Catalytic activity/Vol] 32 U/L Normal <=34 [facility] Comment on above: Order Comment: REY OVIEDO TO THE LABS Performed By: #### L 500.4050, L506.0400, L501.9520 #### [facility] [address] [place], [address] Serum or plasma albumin mamie urement (mass/volume)Ordered By: Arnulfo Mishra on 06-10-2024 Albumin [Mass/Vol] 3.9 g/dL Normal 3.5-5.0 [facility] Comment on above: Order Comment: REY OVIEDO TO THE LABS Performed By: #### L 500.4050, L506.0400, L501.9520 #### [facility] [address] [place], [address] Serum or plasma albumin/glob ulin mass ratioOrdered By: Arnulfoarmen Mishra on 06-10-2024 Albumin/Globulin [Mass ratio] 1.3 {ratio} Normal 0.9-2.4 [facility] Comment on above: Order Comment: REY OVIEDO TO THE LABS Performed By: #### L 500.4050, L506.0400, L501.9520 #### [facility] [address] [place], [address] Serum or plasma alkaline alva sphatase measurementOrdered By: Arnulfoarmen Mishra on 06-10-2024 ALP [Catalytic activity/Vol] 92 U/L 35-104 [facility] Serum or plasma calcium mamie urement (mass/volume)Ordered By: Arnulfo Mishra on 06-10-2024 Calcium [Mass/Vol] 9.2 mg/dL Normal 7.6-11.0 [facility] Comment on above: Order Comment: REY OVIEDO TO THE LABS Performed By: #### L 500.4050, L506.0400, L501.9520 #### [facility] [address] [place], [address] Serum or plasma urea nitroge n measurement (mass/volume)Ordered By: Arnulfo Mishra on 06-10-2024 Urea nitrogen [Mass/Vol] 13 mg/dL Normal 4-19 [facility] Comment on above: Order Comment: REY OVIEDO TO THE LABS Performed By: #### L 500.4050, L506.0400, L501.9520 #### [facility] [address] [place], [address] Sodium levelOrdered By: Arnulfo Mishra on 06-10-2024 Sodium [Moles/Vol] 143 mmol/L Normal 133-145 [facility] Comment on above: Order Comment: REY Leach ADD DR OVIEDO TO THE LABS Performed By: #### L 500.4050, L506.0400, L501.9520 #### [facility] [address] [place], [address] T4 Free Directon 06-10-2024 T4 FREE DIRECT 1.20 ng/dL Normal 0.76-1.46 [facility] Comment on above: Order Comment: REY Leach ADD DR OVIEDO TO THE LABS Performed By: #### L 500.4050, L506.0400, L501.9520 #### [facility] [address] [place], [address] T4 freeOrdered By: Arnulfo Mishra on 06-10-2024 Free T4 [Mass/Vol] 1.20 ng/dL 0.76-1.46 [facility] TSH DL <= 0.005 mIU/L QnOrde red By: Arnulfo Mishra on 06-10-2024 Thyroid Stimulating Hormone (TSH) 0.243 uIU/mL Low 0.300-4.200 [facility] Thyroid Stim Hormone (TSH)on 06-10-2024 TSH 0.243 uIU/mL Low 0.300-4.200 [facility] Comment on above: Order Comment: REY Leach ADD DR OVIEDO TO THE LABS Performed By: #### L 500.4050, L506.0400, L501.9520 #### [facility] [address] [place], [address] Total proteinOrdered By: Joni Mishra on 06-10-2024 Protein [Mass/Vol] 6.9 g/dL 5.9-8.4 [facility] Vitamin B12on 06-10-2024 Cobalamin (Vitamin B12) [Mass/Vol] 245 pg/mL Normal 180-914 [facility] Comment on above: Performed By: #### L 3100.5400, L506.1001, L503.0106 #### [facility] [address] [place], [address] Vitamin B12 ser/plasOrdered By: Thais Echeverria on 06-10-2024 Cobalamin (Vitamin B12) [Mass/Vol] 245 pg/mL 180-914 [facility] Vitamin D, 25-hydroxyOrdered By: Thais Echeverria on 06-10-2024 Vitamin D 25-Hydroxy 8.0 ng/mL Low 30-100 [facility] Comment on above: Vitamin D StatusDefi ciency: <20 ng/mL (50nmol/L)Insufficiency: 20-30 ng/mL (50-75 nmol/L)Sufficiency: 30-100 ng/mL (75-250 nmol/L)Toxicity: >100 ng/mL (>250 nmol/L) Vitamin D,25 Hydroxyon 06-10 Vitamin D 25-OH 8.0 ng/mL Low 30-100 [facility] Comment on above: Result Comment: Lis min D Status Deficiency: <20 ng/mL (50nmol/L) Insufficiency: 20-30 ng/mL (50-75 nmol/L) Sufficiency: 30-100 ng/mL (75-250 nmol/L) Toxicity: >100 ng/mL (>250 nmol/L) Performed By: #### L 3100.5400, L506.1001, L503.0106 #### [facility] [address] [place], [address] Colonoscopy Reporton Colonoscopy Report [facility] Medical Records Department [address] [address] Colonoscopy Report MR#: [id number] Acct: [id number] Name: AP ALEXANDER Rep #: [id number] : 1970 53 From: Yamel Gallo MD PCP: ETHAN Harrison Status:REG [facility] [place] Patient Name: Ap Alexander Procedure Date: 02/05/2024 11:03 AM Date of : 1970 Age: 53 Procedure: Colonoscopy Indications: Screening for colorectal malignant neoplasm Providers: Yamel Gallo MD Referring MD: Chani Khan Medicines: Monitored Anesthesia Care Patient Profile: This is a 53 year old female. Last Colonoscopy: none. The patient's first colonoscopy is today. Complications: No immediate complications. Procedure: Pre-Anesthesia Assessment: - Prior to the procedure, a History and Physical was performed, and patient medications and allergies were reviewed. The patient's tolerance of previous anesthesia was also reviewed. The risks and benefits of the procedure and the sedation options and risks were discussed with the patient. All questions were answered, and informed consent was obtained. Prior Anticoagulants: The patient has taken no anticoagulant or antiplatelet agents. ASA Grade Assessment: Per anesthesia. After reviewing the risks and benefits, the patient was deemed in satisfactory condition to undergo the procedure. After I obtained informed consent, the scope was passed under direct vision. Throughout the procedure, the patient's blood pressure, pulse, and oxygen saturations were monitored continuously. The Colonoscope was introduced through the anus and advanced to the cecum, identified by the appendiceal orifice, ileocecal valve and palpation. The colonoscopy was performed without difficulty. The patient tolerated the procedure well. The quality of the bowel preparation was good. Scope In: 11:13:44 AM Scope Withdrawal Time 0 hours 14 minutes 45 seconds Scope Out: 11:39:28 AM Total Procedure Duration Time 0 hours 25 minutes 44 seconds Findings: The perianal and digital rectal examinations were normal. Three sessile polyps were found in the sigmoid colon, descending colon and ascending colon. The polyps were less than 5 mm in size. These polyps were removed with a cold biopsy forceps. Resection and retrieval were complete. The exam was otherwise without abnormality on direct and retroflexion views. A few small-mouthed diverticula were found in the sigmoid colon. Impression: - Three less than 5 mm polyps in the sigmoid colon, in the descending colon and in the ascending colon, removed with a cold biopsy forceps. Resected and retrieved. - The examination was otherwise normal on direct and retroflexion views. - Diverticulosis in the sigmoid colon. Recommendation: - Discharge patient to home. - Resume previous diet. - Continue present medications. - Await pathology results. - Repeat colonoscopy in 5 years for surveillance based on pathology results. Procedure Code(s): --- Professional --- 76863, PT, Colonoscopy, flexible; with biopsy, single or multiple Diagnosis Code(s): --- Professional --- Z12.11, Encounter for screening for malignant neoplasm of colon D12.5, Benign neoplasm of sigmoid colon D12.4, Benign neoplasm of descending colon D12.2, Benign neoplasm of ascending colon CPT copyright 2021 [employer]. All rights reserved. The codes documented in this report are preliminary and upon featherer review may be revised to meet current compliance requirements. MD Yamel Martinez MD 02/05/2024 11:44:16 AM This report has been signed electronically. Number of Addenda: 0 Note Initiated On: 02/05/2024 11:03 AM 02/05/24 1144 Date Yamel Mayer Signature: Date (if indicated) CC: [employer]-C Chani Khan; Dr. Yamel Gallo MD Date Dictated: 02/05/24 1103 Date Transcribed: Sausage Mixer: TR Signed [facility] MR/POSTOP.Jose 02-05-2024 MR/POSTOP.[facility] Medical Records Department [address] [place] [address] Anesthesia Postop Eval I 02/05/24 1148 MR#: [id number] Acct: [id number] Name: AP ALEXANDER Rep #: [id number] : 1970 53 From: Cash Paz PCP: JOVANNA HarrisonC Status:REG SDC Y Race: C Location: [place] [address] Anesthesia: Postop Eval I Current Vital Signs Temperature: 97.9 F Pulse Rate: 86 Blood Pressure: 124/83 Respiratory Rate: 18 Pulse Ox: 99 Oxygen Delivery Method: Room Air Assessment Airway patent: Yes Spontaneous unlabored respirations: Yes Mental status: Awake and Calm nausea: No Vomiting: No Anesthesia Complication: No Fluid Hydration Crystalloid volume administer (ml): 110 Total IV fluid infused: 110 Progress Note Anesthesia document: Postop Eval 1 completed: Yes 02/05/24 1149 Date Cash Mayer Signature: Date CC: Signed Normal [facility] MR/[id number] 02-05-2024 /[facility] Medical Records Department [address] [place] [address] Anesthesia Postop Eval II 02/05/24 1339 MR#: [id number] Acct: [id number] Name: AP ALEXANDER Rep #: [id number] : 1970 53 From: Aj Barkley MD PCP: ETHAN Harrison Status:[facility] Y Race: C Location: EN Anesthesia Postop Eval I Sum Postop Eval Completion status Anesthesia document: Postop Eval 1 completed: Yes Anesthesia Postop Eval I Summary Anesthesia Postop Eval I Summary: Anesthesia Postop Eval I: Assessment Summary Airway patent Yes 02/05/24 11:49 [email or web address] Spontaneous unlabored Yes 02/05/24 11:49 [email or web address] respirations Mental status Awake,Calm 02/05/24 11:49 [email or web address] nausea No 02/05/24 11:49 [email or web address] Vomiting No 02/05/24 11:49 [email or web address] Anesthesia Postop Eval I: Fluid Summary Crystalloid volume administer 110 02/05/24 11:49 [email or web address] (ml) Colloids volume administered ( ml) Blood Product volume administered (ml) Total IV fluid infused 110 02/05/24 11:49 [email or web address] Anesthesia Postop Eval I: Summary Notes Anesthesia Complication No 02/05/24 11:49 [email or web address] Anesthesia Complication Comment: Post-operative progress note Anesthesia: Postop Eval II Evaluation Mental status: Awake Pain Level: 0 nausea: No Vomiting: No 02/05/24 8289 Date Aj Mayer Signature: Date CC: Signed Normal [facility] Surgery Specimen Level [place] 02-05-2024 Surgery Specimen Level IV -- Patient Age/Sex Location Account Attending Physician -- AP ALEXANDER 53/F EN [id number] Dr. Yamel Gallo MD -- Specimen: [id number] Received: 02/05/24 Status: ZOE Dean Num: [id number] Spec Type: COLON BX Subm Dr: Dr. Yamel Gallo MD HEADER OPERATION: Colonoscopy PRE-OP DIAGNOSIS: Routine screening TISSUE SUBMITTED: A- Ascending colon biopsy, B- Descending colon biopsy, C- Sigmoid biopsy -- MICROSCOPIC DIAGNOSIS A. Ascending colon polyp, biopsy: Fragments of hyperplastic polyp. B. Descending colon polyp, biopsy: Fragments of colonic mucosa with focal hyperplastic change. C. Sigmoid colon, biopsy: Fragment of colonic mucosa with focal hyperplastic change. AM. 02/06/2024 MICROSCOPIC DESCRIPTION Slides are reviewed. GROSS DESCRIPTION A. Received in fixative is one container labeled with the patient's name and designated Ascending colon biopsy. The specimen consists of multiple irregular fragments of light miller soft tissue that in aggregate measure 1.0 x 0.3 x 0.1 cm. The specimen is totally submitted in one cassette. B. Received in fixative is one container labeled with the patient's name and designated Descending colon biopsy. The specimen consists of two irregular fragments of light miller soft tissue that in aggregate measure 0.8 x 0.3 x 0.1 cm. The specimen is totally submitted in one cassette. C. Received in fixative is one container labeled with the patient's name and designated Sigmoid biopsy. The specimen consists of one irregular fragment of light miller soft tissue that measures 0.2 x 0.2 x 0.1 cm. The specimen is totally submitted in one cassette. SJ. 02/05/2024 TC:5 CPT:82444v9 -- Patient Age/Sex Location Account Attending Physician -- AP ALEXANDER 53/F EN [id number] Dr. Yamel Gallo MD -- Signed (signatu re on file) Dr. Pravin Brooke DO 02/06/24 1244 -- Normal [facility] Comment on above: Performed By: #### P SUIV ####[facility] [id number] [place], [address] Photographic Laboratory Supervisor Office Visit Reporton 12-19-2023 Photographic Laboratory Supervisor Office Visit Report [facility] [address], [address] [place] [address] OFFICE VISIT Date of Service: 12/19/23 MR#: [id number] Acct: [id number] Name: AP ALEXANDER Rep #: [id number] : 1970 Provider: ETHAN Schroeder Age/Sex: 53/F Location: [facility] [place] Status: Signed Intake Vital Signs 06/14/23 09:30 12/19/23 09:44 12/19/23 10:18 Height 5 ft 7 in 5 ft 7 in Weight: 237 lb 4 oz 247 lb 8 oz BMI 37.1 38.7 BP 131/79 H 152/87 H 142/83 H Blood Pressure Location Lt brachial Position Sitting Pulse 84 Pulse Source Monitor Temp 97.8 F Intake Visit Reasons: Menopause concerns/ poss. WM? 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 Is patient in pain?: Yes Pain scale (1-10): 4 Allergies shellfish derived Allergy (Verified 12/19/23 09:47) Angioedema amoxicillin (From Augmentin) Adverse Reaction (Verified 12/19/23 09:47) Diarrhea clavulanic acid (From Augmentin) Adverse Reaction (Verified 12/19/23 09:47) Diarrhea Medications ???Medication ???Instructions ???Recorded ???Confirmed ???Type fluticasone propionate 50 50 mcg intranasal ONCE 04/14/17 12/19/23 History mcg/actuation nasal spray,suspension albuterol sulfate 90 mcg/actuation 1 - 2 puff inhalation Q4H PRN PRN 04/29/17 12/19/23 History aerosol inhaler Wheezing fluticasone propionate 230 2 puff inhalation BID 05/19/19 12/19/23 History mcg-salmeterol 21 mcg/actuation HFA inhaler (Advair HFA) lansoprazole 15 mg capsule,delayed 15 mg PO DAILY 02/20/22 12/19/23 History release venlafaxine 75 mg capsule,extended 75 mg PO DAILY #30 caps 01/03/23 12/19/23 Rx release 24 hr cabergoline 0.5 mg tablet 0.5 mg PO .once a week #16 tabs 06/14/23 12/19/23 Rx levothyroxine 125 mcg tablet 125 mcg PO DAILY #90 tabs 12/17/23 12/19/23 Rx Is last menstrual period known: No Post menopausal: No Patient : No : No Control Method: [facility] Medical History (Updated 12/19/23 @ 12:40 by ETHAN Ocasio) Streptococcus agalactiae infection Infection due to ESBL-producing Escherichia coli Wears glasses Cancer Anxiety Alcohol use Thyroid disease Low iron Gastric reflux Non-smoker Status post hysteroscopy Hyperprolactinemia Arthrosis of multiple sites Hypothyroidism Hyperlipidemia Female fertility problems Asthma Stroke Hay fever Shoulder pain Surgical History History of D C S/P laparoscopy Glomus tumor Hx of cholecystectomy Family History Other A-fib Anxiety Asthma COPD (chronic obstructive pulmonary disease) Celiac disease Hypercholesterolem ia Thyroid disorder Social History (Updated 12/19/23 @ 09:48 by Farrah Rojas) sexually active: Yes Smoking Status: Never smoker alcohol intake: current alcohol intake frequency: a few times a week Alcohol type: wine and hard liquor substance use type: does not use what type of physical activity do you participate in: none seatbelt use: always do you feel safe at home: Yes additional social history: - Registration at [facility] ER HPI Menopause concerns/ poss. WM? (see convo) Details: AP ALEXANDER is a 53 year old who presents for concerns with her menopause. She has been taking effexor. This was increased in the past and worked for a while however she finds her symptoms are returning. She reports her most bothersome symptoms currently are hot flashes and anxiety. She deals with occasional night sweats as well. Female Reproductive History Menopausal Symptoms: Yes hot flashes, Yes night sweats, Yes difficulty concentrating and Yes change in libido History 6 Elective abortions Hx Para 4 Spontaneous abortions Hx # Term Pregnancies Ectopic pregnancies Hx # Pregnancies Multiple births # of living children ROS Const Constitutional: Reports night sweats ENT ENT: Reports system reviewed and no additional complaints, except as documented Cardio Card: Denies chest pain Resp Resp: Denies cough or dyspnea GI GI: Reports as per HPI; Denies constipation, nausea or vomiting : Reports hot flashes Musc Musc: Denies back pain or muscle weakness Skin Skin/Breast: Denies alopecia, change in hair or dry skin Neuro Neuro: Reports system reviewed and no additional complaints, except as documented Psych Psych: Reports change in libido and difficulty concentrating Endo Endo: Denies cold intolerance, excessive sweating, heat intolerance or polydipsia Senthil/Lymph Hematologic/Lympha tic: Denies easy bleeding, Denies easy bruising and Denies lymphadenopathy Exam Const General: cooperative, healthy appearing, comfortable, no (more content not included)... Normal [facility] CBC, Employeeon 11-29-2023 Absolute Lymph 2.52 X10 3/uL Normal 0.83-4.51 [facility] Comment on above: Performed By: #### L 500.2900, L100.0200 #### [facility] [address] [place], [address] Absolute Neut 2.7 X10 3/uL Normal 2.0-7.7 [facility] Comment on above: Performed By: #### L 500.2900, L100.0200 #### [facility] [address] [place], [address] Basophils/100 WBC (Bld) 0.4 % Normal 0-1 [facility] Comment on above: Performed By: #### L 500.2900, L100.0200 #### [facility] [address] [place], [address] Eosinophils/100 WBC (Bld) 3.0 % Normal 0-5 [facility] Comment on above: Performed By: #### L 500.2900, L100.0200 #### [facility] [address] [place], [address] Erythrocyte distribution width (RBC) [Ratio] 12.4 % Normal 11.6-14.6 [facility] Comment on above: Performed By: #### L 500.2900, L100.0200 #### [facility] [address] [place], [address] Hematocrit (Bld) [Volume fraction] 42.0 % Normal 37-47 [facility] Comment on above: Performed By: #### L 500.2900, L100.0200 #### [facility] [address] [place], [address] Hemoglobin (Bld) [Mass/Vol] 13.2 g/dL Normal 12.0-15.0 [facility] Comment on above: Performed By: #### L 500.2900, L100.0200 #### [facility] [address] [place], [address] Lymphocytes/100 WBC (Bld) 44.2 % High 19-41 [facility] Comment on above: Performed By: #### L 500.2900, L100.0200 #### [facility] [address] [place], [address] MCH (RBC) [Entitic mass] 29.7 pg Normal 27.0-32.0 [facility] Comment on above: Performed By: #### L 500.2900, L100.0200 #### [facility] [address] [place], [address] MCHC (RBC) [Mass/Vol] 31.4 g/dL Low 32-36 [facility] Comment on above: Performed By: #### L 500.2900, L100.0200 #### [facility] [address] [place], [address] MCV (RBC) [Entitic vol] 94.4 fL Normal 81-99 [facility] Comment on above: Performed By: #### L 500.2900, L100.0200 #### [facility] [address] [place], [address] Monocytes/100 WBC (Bld) 5.6 % Normal 0-10 [facility] Comment on above: Performed By: #### L 500.2900, L100.0200 #### [facility] [address] [place], [address] Neutrophils/100 WBC (Bld) 46.6 % Low 47-70 [facility] Comment on above: Performed By: #### L 500.2900, L100.0200 #### [facility] [address] [place], [address] NRBC # 0.00 10 3/uL Normal 0-5 [facility] Comment on above: Performed By: #### L 500.2900, L100.0200 #### [facility] [address] [place], [address] Nucleated RBC (Bld) [#/Vol] 0 10*3/uL Normal 0-5 [facility] Comment on above: Performed By: #### L 500.2900, L100.0200 #### [facility] [address] [place], [address] Platelet mean volume (Bld) [Entitic vol] 9.5 fL Normal 6.2-12.0 [facility] Comment on above: Performed By: #### L 500.2900, L100.0200 #### [facility] [address] [place], [address] Platelets (Bld) [#/Vol] 269 10*3/uL Normal 150-450 [facility] Comment on above: Performed By: #### L 500.2900, L100.0200 #### [facility] [address] [place], [address] RBC (Bld) [#/Vol] 4.45 10*6/uL Normal 4.2-5.4 [facility] Comment on above: Performed By: #### L 500.2900, L100.0200 #### [facility] [address] [place], [address] RDW SD 42.9 fl Normal 35.1-43.9 [facility] Comment on above: Performed By: #### L 500.2900, L100.0200 #### [facility] [address] [place], [address] WBC (Bld) [#/Vol] 5.7 10*3/uL Normal 4.4-11.0 [facility] Comment on above: Performed By: #### L 500.2900, L100.0200 #### [facility] [address] [place], [address] Employee Profile[employer] 4 Albumin [Mass/Vol] 3.6 g/dL Normal 3.2-5.0 [facility] Comment on above: Performed By: #### L 500.2900, L100.0200 #### [facility] [address] [place], [address] Albumin/Globulin [Mass ratio] 0.9 {ratio} Normal 0.9-2.4 [facility] Comment on above: Performed By: #### L 500.2900, L100.0200 #### [facility] [address] [place], [address] ALK P 97 U/L Normal 45-117 [facility] Comment on above: Performed By: #### L 500.2900, L100.0200 #### [facility] [address] [place], [address] ALT [Catalytic activity/Vol] 40 U/L Normal 13-56 [facility] Comment on above: Performed By: #### L 500.2900, L100.0200 #### [facility] [address] [place], [address] AST [Catalytic activity/Vol] 23 U/L Normal 15-37 [facility] Comment on above: Performed By: #### L 500.2900, L100.0200 #### [facility] [address] [place], [address] Bilirubin [Mass/Vol] 0.40 mg/dL Normal 0.20-1.00 [facility] Comment on above: Result Comment: For patients on eltrombopag therapy, use of Dimension Mccalla TBIL is not recommended. Performed By: #### L 500.2900, L100.0200 #### [facility] [address] [place], [address] Bilirubin.direct [Mass/Vol] 0.10 mg/dL Normal 0.00-0.30 [facility] Comment on above: Performed By: #### L 500.2900, L100.0200 #### [facility] [address] [place], [address] BUN/CRE 11.3 RATIO Normal 10-20 [facility] Comment on above: Performed By: #### L 500.2900, L100.0200 #### [facility] [address] [place], [address] CA,Total 9.6 mg/dL Normal 8.5-10.1 [facility] Comment on above: Performed By: #### L 500.2900, L100.0200 #### [facility] [address] [place], [address] Chloride [Moles/Vol] 109 mmol/L High 98-107 [facility] Comment on above: Performed By: #### L 500.2900, L100.0200 #### [facility] [address] [place], [address] CHOL:HDL 3.00 Normal [facility] Comment on above: Performed By: #### L 500.2900, L100.0200 #### [facility] [address] [place], [address] Cholesterol [Mass/Vol] 164 mg/dL Normal 200 [facility] Comment on above: Result Comment: <200 mg/dL Desirable 200-240 mg/dL Borderline >240 mg/dL High Risk Performed By: #### L 500.2900, L100.0200 #### [facility] [address] [place], [address] Cholesterol in HDL [Mass/Vol] 54 mg/dL Normal [facility] Comment on above: Result Comment: The drugs N-Acetylcysteine and Metamizole may falsely depress this assay. Reference Range HDL <40 mg/dL Low HDL Cholesterol HDL >or= 60 mg/dL High HDL Cholesterol Performed By: #### L 500.2900, L100.0200 #### [facility] [address] [place], [address] Cholesterol in LDL [Mass/Vol] 88 mg/dL Normal 0-130 [facility] Comment on above: Performed By: #### L 500.2900, L100.0200 #### [facility] [address] [place], [address] Cholesterol in VLDL [Mass/Vol] 22 mg/dL Normal 5-40 [facility] Comment on above: Performed By: #### L 500.2900, L100.0200 #### [facility] [address] [place], [address] CO2 [Moles/Vol] 28.0 mmol/L Normal 21.0-32.0 [facility] Comment on above: Performed By: #### L 500.2900, L100.0200 #### [facility] [address] [place], [address] Creatinine [Mass/Vol] 0.79 mg/dL Normal 0.55-1.02 [facility] Comment on above: Result Comment: The validity of the calculated GFR GFRAA in patients over 70 years has not been determined. Clinical correlation is essential. Performed By: #### L 500.2900, L100.0200 #### [facility] [address] [place], [address] EST GFR - AA 97 mL/min Normal >60 [facility] Comment on above: Result Comment: Afri can Mongolian GFR Calc Performed By: #### L 500.2900, L100.0200 #### [facility] [address] [place], [address] GAP 5 Normal 5-15 [facility] Comment on above: Performed By: #### L 500.2900, L100.0200 #### [facility] [address] [place], [address] GFR/1.73 sq M.predicted among non-blacks MDRD (S/P/Bld) [Vol rate/Area] 80 mL/min/{1.73_m2} Normal >60 [facility] Comment on above: Result Comment: Non- GFR Calc Performed By: #### L 500.2900, L100.0200 #### [facility] [address] [place], [address] Globulin (S) [Mass/Vol] 3.8 g/dL Normal 2.2-4.2 [facility] Comment on above: Performed By: #### L 500.2900, L100.0200 #### [facility] [address] [place], [address] Glucose [Mass/Vol] 95 mg/dL Normal 74-106 [facility] Comment on above: Performed By: #### L 500.2900, L100.0200 #### [facility] [address] [place], [address] LDH 187 U/L Normal 84-246 [facility] Comment on above: Performed By: #### L 500.2900, L100.0200 #### [facility] [address] [place], [address] Phosphate [Mass/Vol] 3.6 mg/dL Normal 2.5-4.9 [facility] Comment on above: Performed By: #### L 500.2900, L100.0200 #### [facility] [address] [place], [address] Potassium [Moles/Vol] 3.3 mmol/L Low 3.5-5.1 [facility] Comment on above: Performed By: #### L 500.2900, L100.0200 #### [facility] [address] [place], [address] Sodium [Moles/Vol] 143 mmol/L Normal 136-145 [facility] Comment on above: Performed By: #### L 500.2900, L100.0200 #### [facility] [address] [place], [address] T PROT 7.4 g/dL Normal 6.4-8.2 [facility] Comment on above: Performed By: #### L 500.2900, L100.0200 #### [facility] [address] [place], [address] Triglyceride [Mass/Vol] 112 mg/dL Normal [facility] Comment on above: Result Comment: The drugs N-Acetylcysteine and Metamizole may falsely depress this assay. Serum Triglycerides Reference Interval Normal <150 mg/dL Borderline high 150 - 199 mg/dL High 200 - 499 mg/dL Very High > or = 500 mg/dL Performed By: #### L 500.2900, L100.0200 #### [facility] [address] [place], [address] Urea nitrogen [Mass/Vol] 9 mg/dL Normal 7-18 [facility] Comment on above: Performed By: #### L 500.2900, L100.0200 #### [facility] [address] [place], [address] URIC 5.5 mg/dL Normal 2.6-6.0 [facility] Comment on above: Result Comment: The drugs N-Acetylcysteine and Metamizole may falsely depress this assay. Performed By: #### L 500.2900, L100.0200 #### [facility] [address] [place], [address] Basophil percentageOrdered B y: Arnulfo Mishra on 06-13-2023 Bilirubin [Mass/Vol] 0.30 mg/dL 0.20-1.00 [facility] Comment on above: For patients on eltr ombopag therapy, use of Dimension Mccalla TBIL is not recommended. Chloride [Moles/Vol] 113 mmol/L 98-107 [facility] Glucose [Mass/Vol] 111 mg/dL 74-106 [facility] Comment on above: Fasting Glucose resu lt from 100 to 125 mg/dL suggests IMPAIRED HOMEOSTASIS per A.D.A. criteria. Potassium [Moles/Vol] 3.7 mmol/L 3.5-5.1 [facility] Protein [Mass/Vol] 6.8 g/dL 6.4-8.2 [facility] Sodium [Moles/Vol] 144 mmol/L 136-145 [facility] - Chemistry and C hemistry - challengeOrdered By: Arnulfo Mishra on 06-13-2023 Albumin/Globulin [Mass ratio] 1.0 {ratio} 0.9-2.4 [facility] ALP [Catalytic activity/Vol] 90 U/L 45-117 [facility] ALT [Catalytic activity/Vol] 34 U/L 13-56 [facility] CO2 [Moles/Vol] 25.0 mmol/L 21.0-32.0 [facility] Globulin (S) [Mass/Vol] 3.4 g/dL 2.2-4.2 [facility] Urea nitrogen/Creatinine [Mass ratio] 12.4 mg/mg 10-20 [facility] No Panel InformationOrdered By: Arnulfo Mishra on 06-13-2023 Estimated GFR (MDRD) Amer 107 mL/min >60 [facility] Comment on above: GFR Calc Estimated GFR (MDRD) Non-Af Amer 89 mL/min >60 [facility] Comment on above: Non- GFR Calc Prolactin 6.6 ng/mL [facility] Comment on above: NORMAL REFERENCE RAN GES FEMALE NON- 2.2 - 30.3 ng/mL 8.1 - 347.6 ng/mL POST-MENOPAUSAL 0.7 - 31.5 ng/mL MALE 2.5 - 17.4 ng/mL Serum or plasma calcium mamie urement (mass/volume)Ordered By: Arnulfo Mishra on 06-13-2023 Calcium [Mass/Vol] 8.7 mg/dL 8.5-10.1 [facility] Serum or plasma creatinine m easurement (mass/volume)Ordered By: Arnulfo Mishra on 06-13-2023 Creatinine [Mass/Vol] 0.72 mg/dL 0.55-1.02 [facility] Comment on above: The validity of the calculated GFR & GFRAA in patients over 70 years has not been determined. Clinical correlation is essential. Serum or plasma thyroid stim ulating hormone (TSH) measurement (units/volume)Ordered By: Arnulfo Mishra on 06-13-2023 TSH Qn 0.05 uIU/mL 0.358-3.74 [facility] Serum or plasma urea nitroge n measurement (mass/volume)Ordered By: Arnulfo Mishra on 06-13-2023 Urea nitrogen [Mass/Vol] 9 mg/dL 7-18 [facility] Thin prep Papanicolaou smear with manual screeningOrdered By: Arnulfo Mishra on 06-13-2023 Thin prep Papanicolaou smear with manual screening 3.4 g/dL 3.2-5.0 [facility] Thin prep Papanicolaou smear with manual screening 20 U/L 15-37 [facility] Thin prep Papanicolaou smear with manual screening 6 5-15 [facility] Thin prep Papanicolaou smear with manual screening 1.18 ng/dL 0.76-1.46 [facility] - Chemistry and C hemistry - challengeOrdered By: Dr. Mishra on 07-05-2022 Free T4 [Mass/Vol] 0.59 ng/dL 0.76-1.46 [facility] No Panel InformationOrdered By: Dr. Mishra on 07-05-2022 Thyroid Stimulating Hormone (TSH) 2.07 uIU/mL 0.358-3.74 [facility] Serum or plasma prolactin me asurement (mass/volume)Ordered By: Dr. Mishra on 07-05-2022 Prolactin [Mass/Vol] 92.9 ng/mL [facility] Comment on above: NORMAL REFERENCE RAN GES FEMALE NON- 2.2 - 30.3 ng/mL 8.1 - 347.6 ng/mL POST-MENOPAUSAL 0.7 - 31.5 ng/mL MALE 2.5 - 17.4 ng/mL Culture, urineOrdered By: Dr Courtney Ayala on 03-21-2022 Bacteria identified Cx Nom (U) Mixed Gram Pos & Gram Neg Org [facility] Absolute lymphocyte countOrd ered By: Dr. Ayala on 03-19-2022 Lymphocytes Auto (Unsp spec) [#/Vol] 2.40 10*3/uL 0.83-4.51 [facility] Basophil percentageOrdered B y: Dr. Ayala on 03-19-2022 Basophils/100 WBC (Bld) 0.7 % 0-1 [facility] Bilirubin [Mass/Vol] 0.20 mg/dL 0.20-1.00 [facility] Comment on above: For patients on eltr ombopag therapy, use of Dimension Mccalla TBIL is not recommended. Chloride [Moles/Vol] 108 mmol/L 98-107 [facility] Eosinophils/100 WBC (Bld) 10.2 % 0-5 [facility] Glucose [Mass/Vol] 98 mg/dL 74-106 [facility] Neutrophils (Bld) [#/Vol] 3.9 10*3/uL 2.0-7.7 [facility] Neutrophils/100 WBC (Bld) 51.5 % 47-70 [facility] Potassium [Moles/Vol] 3.7 mmol/L 3.5-5.1 [facility] Protein [Mass/Vol] 7.5 g/dL 6.4-8.2 [facility] Sodium [Moles/Vol] 141 mmol/L 136-145 [facility] WBC (Bld) [#/Vol] 7.5 10*3/uL 4.4-11.0 [facility] Blood erythrocytes count (nu mber/volume)Ordered By: Dr. Ayala on 03-19-2022 RBC (Bld) [#/Vol] 4.37 10*6/uL 4.2-5.4 [facility] Blood hemoglobin measurement (mass/volume)Ordered By: Dr. Ayala on 03-19-2022 Hemoglobin (Bld) [Mass/Vol] 12.9 g/dL 12.0-15.0 [facility] Blood lymphocytes/100 leukoc ytesOrdered By: Dr. Ayala on 03-19-2022 Lymphocytes/100 WBC (Bld) 31.9 % 19-41 [facility] Blood monocytes/100 leukocyt esOrdered By: Dr. Ayala on 03-19-2022 Monocytes/100 WBC (Bld) 5.6 % 0-10 [facility] Blood platelet mean volumeOr dered By: Dr. Ayala on 03-19-2022 Platelet mean volume (Bld) [Entitic vol] 9.4 fL 6.2-12.0 [facility] Determination of erythrocyte mean corpuscular volume (MCV)Ordered By: Dr. Ayala on 03-19-2022 MCV (RBC) [Entitic vol] 93.1 fL 81-99 [facility] Hematocrit Auto (Bld) [Volum e fraction]Ordered By: Dr. Ayala on 03-19-2022 Hematocrit (Bld) [Volume fraction] 40.7 % 37-47 [facility] - Chemistry and C hemistry - challengeOrdered By: Dr. Ayala on 03-19-2022 ALP [Catalytic activity/Vol] 88 U/L 45-117 [facility] ALT [Catalytic activity/Vol] 34 U/L 13-56 [facility] CO2 [Moles/Vol] 26.0 mmol/L 21.0-32.0 [facility] Globulin (S) [Mass/Vol] 4.1 g/dL 2.2-4.2 [facility] Urea nitrogen/Creatinine [Mass ratio] 16.9 mg/mg 10-20 [facility] - Hematology and Cell countsOrdered By: Dr. Ayala on 03-19-2022 Erythrocyte distribution width (RBC) [Entitic vol] 45.7 fL 35.1-43.9 [facility] Erythrocyte distribution width (RBC) [Ratio] 13.3 % 11.6-14.6 [facility] Immature granulocytes/100 WBC (Bld) 0.100 % 0.0-0.9 [facility] Comment on above: IG% - Immature Granu locytes (promyelocytes, myelocytes and metamyelocytes) > 1% indicates that a LEFT SHIFT is Present. MCH (RBC) [Entitic mass] 29.5 pg 27.0-32.0 [facility] Nucleated RBC/100 WBC (Bld) [Ratio] 0 % 0-5 [facility] MCHC Auto (RBC) [Mass/Vol]Or dered By: Dr. Aylaa on 03-19-2022 MCHC (RBC) [Mass/Vol] 31.7 g/dL 32-36 [facility] No Panel InformationOrdered By: Dr. Ayala on 03-19-2022 Estimated GFR (MDRD) Amer 101 mL/min >60 [facility] Comment on above: GFR Calc Estimated GFR (MDRD) Non-Af Amer 83 mL/min >60 [facility] Comment on above: Non- GFR Calc Platelets bldOrdered By: Dr. Ayala on 03-19-2022 Platelets (Bld) [#/Vol] 373 10*3/uL 150-450 [facility] Serum or plasma albumin mamie urement (mass/volume)Ordered By: Dr. Ayala on 03-19-2022 Albumin [Mass/Vol] 3.4 g/dL 3.2-5.0 [facility] Serum or plasma albumin/glob ulin mass ratioOrdered By: Dr. Ayala on 03-19-2022 Albumin/Globulin [Mass ratio] 0.8 {ratio} 0.9-2.4 [facility] Serum or plasma calcium mamie urement (mass/volume)Ordered By: Dr. Ayala on 03-19-2022 Calcium [Mass/Vol] 9.2 mg/dL 8.5-10.1 [facility] Serum or plasma creatinine m easurement (mass/volume)Ordered By: Dr. Ayala on 03-19-2022 Creatinine [Mass/Vol] 0.77 mg/dL 0.55-1.02 [facility] Comment on above: The validity of the calculated GFR & GFRAA in patients over 70 years has not been determined. Clinical correlation is essential. Serum or plasma urea nitroge n measurement (mass/volume)Ordered By: Dr. Ayala on 03-19-2022 Urea nitrogen [Mass/Vol] 13 mg/dL 7-18 [facility] Thin prep Papanicolaou smear with manual screeningOrdered By: Dr. Ayala on 03-19-2022 Thin prep Papanicolaou smear with manual screening 20 U/L 15-37 [facility] Thin prep Papanicolaou smear with manual screening 7 5-15 [facility] Culture, urineOrdered By: Dr Courtney Ayala on 03-05-2022 Bacteria identified Cx Nom (U) ESBL Escherichia coli [facility] Bacteria identified Cx Nom (U) Streptococcus agalactiae (B) [facility] Absolute lymphocyte countOrd ered By: Dr. Ayala on 03-02-2022 Lymphocytes Auto (Unsp spec) [#/Vol] 2.12 10*3/uL 0.83-4.51 [facility] Basophil percentageOrdered B y: Dr. Ayala on 03-02-2022 Basophils/100 WBC (Bld) 0.2 % 0-1 [facility] Chloride [Moles/Vol] 109 mmol/L 98-107 [facility] Eosinophils/100 WBC (Bld) 4.0 % 0-5 [facility] Glucose [Mass/Vol] 98 mg/dL 74-106 [facility] Neutrophils (Bld) [#/Vol] 11.2 10*3/uL 2.0-7.7 [facility] Neutrophils/100 WBC (Bld) 75.0 % 47-70 [facility] Potassium [Moles/Vol] 3.5 mmol/L 3.5-5.1 [facility] Sodium [Moles/Vol] 143 mmol/L 136-145 [facility] WBC (Bld) [#/Vol] 15.0 10*3/uL 4.4-11.0 [facility] Blood erythrocytes count (nu mber/volume)Ordered By: Dr. Ayala on 03-02-2022 RBC (Bld) [#/Vol] 4.07 10*6/uL 4.2-5.4 [facility] Blood hemoglobin measurement (mass/volume)Ordered By: Dr. Ayala on 03-02-2022 Hemoglobin (Bld) [Mass/Vol] 12.0 g/dL 12.0-15.0 [facility] Blood lymphocytes/100 leukoc ytesOrdered By: Dr. Ayala on 03-02-2022 Lymphocytes/100 WBC (Bld) 14.1 % 19-41 [facility] Blood monocytes/100 leukocyt esOrdered By: Dr. Ayala on 03-02-2022 Monocytes/100 WBC (Bld) 5.9 % 0-10 [facility] Blood platelet mean volumeOr dered By: Dr. Ayala on 03-02-2022 Platelet mean volume (Bld) [Entitic vol] 9.6 fL 6.2-12.0 [facility] Determination of erythrocyte mean corpuscular volume (MCV)Ordered By: Dr. Ayala on 03-02-2022 MCV (RBC) [Entitic vol] 94.3 fL 81-99 [facility] Hematocrit Auto (Bld) [Volum e fraction]Ordered By: Dr. Ayala on 03-02-2022 Hematocrit (Bld) [Volume fraction] 38.4 % 37-47 [facility] Laboratory - Chemistry and C hemistry - challengeon 03-02-2022 Bilirubin Ql (U) Negative [facility] Glucose Ql (U) Negative [facility] Ketones Ql (U) Negative [facility] pH (U) 5.0 [pH] [facility] Specific gravity (U) [Rel density] 1.030 [facility] Urobilinogen (U) [Mass/Vol] Negative [facility] Laboratory - Chemistry and C hemistry - challengeOrdered By: Dr. Ayala on 03-02-2022 CO2 [Moles/Vol] 24.0 mmol/L 21.0-32.0 [facility] Urea nitrogen/Creatinine [Mass ratio] 16.0 mg/mg 10-20 [facility] Laboratory - Hematology and Cell countson 03-02-2022 Hemoglobin Ql (U) Large [facility] Laboratory - Hematology and Cell countsOrdered By: Dr. Ayala on 03-02-2022 Erythrocyte distribution width (RBC) [Entitic vol] 45.0 fL 35.1-43.9 [facility] Erythrocyte distribution width (RBC) [Ratio] 13.0 % 11.6-14.6 [facility] Immature granulocytes/100 WBC (Bld) 0.800 % 0.0-0.9 [facility] Comment on above: IG% - Immature Granu locytes (promyelocytes, myelocytes and metamyelocytes) > 1% indicates that a LEFT SHIFT is Present. MCH (RBC) [Entitic mass] 29.5 pg 27.0-32.0 [facility] Nucleated RBC/100 WBC (Bld) [Ratio] 0 % 0-5 [facility] Laboratory - Specimen inform ationon 03-02-2022 Clarity (U) Clear [facility] Color (U) DARK YELLOW [facility] Laboratory - Urinalysison Nitrite Ql (U) Negative [facility] Protein Ql (U) Negative [facility] MCHC Auto (RBC) [Mass/Vol]Or dered By: Dr. Ayala on 03-02-2022 MCHC (RBC) [Mass/Vol] 31.3 g/dL 32-36 [facility] No Panel Informationon 03-02 Urine Leukocytes Positive [facility] Urine Non-Hemolyzed Blood [facility] No Panel InformationOrdered By: Dr. Ayala on 03-02-2022 Estimated GFR (MDRD) Amer 115 mL/min >60 [facility] Comment on above: GFR Calc Estimated GFR (MDRD) Non-Af Amer 95 mL/min >60 [facility] Comment on above: Non- GFR Calc Platelets bldOrdered By: Dr. Ayala on 03-02-2022 Platelets (Bld) [#/Vol] 497 10*3/uL 150-450 [facility] Serum or plasma calcium mamie urement (mass/volume)Ordered By: Dr. Ayala on 03-02-2022 Calcium [Mass/Vol] 9.1 mg/dL 8.5-10.1 [facility] Serum or plasma creatinine m easurement (mass/volume)Ordered By: Dr. Ayala on 03-02-2022 Creatinine [Mass/Vol] 0.69 mg/dL 0.55-1.02 [facility] Comment on above: The validity of the calculated GFR & GFRAA in patients over 70 years has not been determined. Clinical correlation is essential. Serum or plasma urea nitroge n measurement (mass/volume)Ordered By: Dr. Ayala on 03-02-2022 Urea nitrogen [Mass/Vol] 11 mg/dL 7-18 [facility] Thin prep Papanicolaou smear with manual screeningOrdered By: Dr. Ayala on 03-02-2022 Thin prep Papanicolaou smear with manual screening 10 5-15 [facility] Basophil percentageOrdered B y: Dr. Ayala on 02-20-2022 WBC (Bld) [#/Vol] 11.6 10*3/uL 4.4-11.0 [facility] Blood erythrocytes count (nu mber/volume)Ordered By: Dr. Ayala on 02-20-2022 RBC (Bld) [#/Vol] 4.62 10*6/uL 4.2-5.4 [facility] Blood hemoglobin measurement (mass/volume)Ordered By: Dr. Ayala on 02-20-2022 Hemoglobin (Bld) [Mass/Vol] 13.4 g/dL 12.0-15.0 [facility] Blood platelet mean volumeOr dered By: Dr. Ayala on 02-20-2022 Platelet mean volume (Bld) [Entitic vol] 9.0 fL 6.2-12.0 [facility] Determination of erythrocyte mean corpuscular volume (MCV)Ordered By: Dr. Ayala on 02-20-2022 MCV (RBC) [Entitic vol] 94.8 fL 81-99 [facility] Glucose Glucometer (dC) [M ass/Vol]Ordered By: Dr. Ayala on 02-20-2022 Glucose [Mass/Vol] 83 mg/dL 74-106 [facility] Comment on above: MANAGEMENT OF PATIEN T CARE PER NURSING PROTOCOL Hematocrit Auto (Bld) [Volum e fraction]Ordered By: Dr. Ayala on 02-20-2022 Hematocrit (Bld) [Volume fraction] 43.8 % 37-47 [facility] Laboratory - Hematology and Cell countsOrdered By: Dr. Ayala on 02-20-2022 Erythrocyte distribution width (RBC) [Entitic vol] 45.1 fL 35.1-43.9 [facility] Erythrocyte distribution width (RBC) [Ratio] 12.9 % 11.6-14.6 [facility] MCH (RBC) [Entitic mass] 29.0 pg 27.0-32.0 [facility] MCHC Auto (RBC) [Mass/Vol]Or dered By: Dr. Ayala on 02-20-2022 MCHC (RBC) [Mass/Vol] 30.6 g/dL 32-36 [facility] Platelets bldOrdered By: Dr. Ayala on 02-20-2022 Platelets (Bld) [#/Vol] 325 10*3/uL 150-450 [facility] Absolute lymphocyte countOrd ered By: Dr. Ayala on 02-13-2022 Lymphocytes Auto (Unsp spec) [#/Vol] 2.67 10*3/uL 0.83-4.51 [facility] Basophil percentageOrdered B y: Dr. Ayala on 02-13-2022 Basophils/100 WBC (Bld) 0.5 % 0-1 [facility] Eosinophils/100 WBC (Bld) 4.5 % 0-5 [facility] Neutrophils (Bld) [#/Vol] 4.4 10*3/uL 2.0-7.7 [facility] Neutrophils/100 WBC (Bld) 54.7 % 47-70 [facility] Blood lymphocytes/100 leukoc ytesOrdered By: Dr. Ayala on 02-13-2022 Lymphocytes/100 WBC (Bld) 33.3 % 19-41 [facility] Blood monocytes/100 leukocyt esOrdered By: Dr. Ayala on 02-13-2022 Monocytes/100 WBC (Bld) 6.6 % 0-10 [facility] Laboratory - Chemistry and C hemistry - challengeOrdered By: Dr. Ayala on 02-13-2022 HCG ( test) Ql (U) Negative [facility] Comment on above: Very dilute urine sp ecimens, as indicated by a low specificgravity, may not contain c s s representative levels of hCG. If is still suspected, a first morning urinespecimen should be collected 48 hours later and tested. Magnesium [Mass/Vol] 2.2 mg/dL 1.6-2.6 [facility] Laboratory - Hematology and Cell countsOrdered By: Dr. Ayala on 02-13-2022 Immature granulocytes/100 WBC (Bld) 0.400 % 0.0-0.9 [facility] Comment on above: IG% - Immature Granu locytes (promyelocytes, myelocytes and metamyelocytes) > 1% indicates that a LEFT SHIFT is Present. Nucleated RBC/100 WBC (Bld) [Ratio] 0 % 0-5 [facility] Absolute lymphocyte countOrd ered By: HEALTH ASSESSMENT on 12-18-2021 Lymphocytes Auto (Unsp spec) [#/Vol] 2.74 10*3/uL 0.83-4.51 [facility] Absolute reticulocyte countO rdered By: HEALTH ASSESSMENT on 12-18-2021 Reticulocytes (Bld) [#/Vol] 0.00 10*3/uL 0-5 [facility] Basophil percentageOrdered B y: HEALTH ASSESSMENT on 12-18-2021 Basophil percentage 3.9 mg/dL 2.5-4.9 [facility] Bilirubin [Mass/Vol] 0.50 mg/dL 0.20-1.00 [facility] Comment on above: For patients on eltr ombopag therapy, use of Dimension [place] TBIL is not recommended. Chloride [Moles/Vol] 109 mmol/L 98-107 [facility] Cholesterol [Mass/Vol] 152 mg/dL <200 [facility] Comment on above: <200 mg/dL Desirable 200-240 mg/dL Borderline >240 mg/dL High Risk Glucose [Mass/Vol] 95 mg/dL 74-106 [facility] Neutrophils (Bld) [#/Vol] 4.1 10*3/uL 2.0-7.7 [facility] Potassium [Moles/Vol] 3.5 mmol/L 3.5-5.1 [facility] Protein [Mass/Vol] 7.1 g/dL 6.4-8.2 [facility] Sodium [Moles/Vol] 141 mmol/L 136-145 [facility] Triglyceride [Mass/Vol] 108 mg/dL <199 [facility] Comment on above: The drugs N-Acetylcy steine and Metamizole may falsely depress this assay.Serum Triglycerides Reference Interval Normal <150 mg/dL Borderline high 150 - 199 mg/dL High 200 - 499 mg/dL Very High > or = 500 mg/dL WBC (Bld) [#/Vol] 7.6 10*3/uL 4.4-11.0 [facility] Bilirubin Test strip Ql (U)O rdered By: HEALTH ASSESSMENT on 12-18-2021 Bilirubin Ql (U) Negative Negative [facility] Blood erythrocytes count (nu mber/volume)Ordered By: HEALTH ASSESSMENT on 12-18-2021 RBC (Bld) [#/Vol] 4.00 10*6/uL 4.2-5.4 [facility] Blood hemoglobin measurement (mass/volume)Ordered By: HEALTH ASSESSMENT on 12-18-2021 Hemoglobin (Bld) [Mass/Vol] 11.8 g/dL 12.0-15.0 [facility] Blood platelet mean volumeOr dered By: HEALTH ASSESSMENT on 12-18-2021 Platelet mean volume (Bld) [Entitic vol] 10.0 fL 6.2-12.0 [facility] Determination of erythrocyte mean corpuscular volume (MCV)Ordered By: HEALTH ASSESSMENT on 12-18-2021 MCV (RBC) [Entitic vol] 92.5 fL 81-99 [facility] Direct bilirubinOrdered By: HEALTH ASSESSMENT on 12-18-2021 Bilirubin.direct [Mass/Vol] 0.13 mg/dL 0.00-0.30 [facility] Hematocrit Auto (Bld) [Volum e fraction]Ordered By: HEALTH ASSESSMENT on 12-18-2021 Hematocrit (Bld) [Volume fraction] 37.0 % 37-47 [facility] Ketones Test strip Ql (U)Ord ered By: HEALTH ASSESSMENT on 12-18-2021 Ketones Ql (U) Negative Negative [facility] Laboratory - Chemistry and C hemistry - challengeOrdered By: HEALTH ASSESSMENT on 12-18-2021 ALP [Catalytic activity/Vol] 87 U/L 45-117 [facility] ALT [Catalytic activity/Vol] 26 U/L 13-56 [facility] Cholesterol.total/Yaritza sterol in HDL [Mass ratio] 3.50 {ratio} [facility] CO2 [Moles/Vol] 25.0 mmol/L 21.0-32.0 [facility] Globulin (S) [Mass/Vol] 4.0 g/dL 2.2-4.2 [facility] Urea nitrogen/Creatinine [Mass ratio] 19.0 mg/mg 10- [facility] Laboratory - Chemistry and C hemistry - challengeOrdered By: Nhung Hatch on 12-18-2021 Free T4 [Mass/Vol] 1.67 ng/dL 0.76-1.46 [facility] Laboratory - Hematology and Cell countsOrdered By: HEALTH ASSESSMENT on 12-18-2021 Erythrocyte distribution width (RBC) [Entitic vol] 42.4 fL 35.1-43.9 [facility] Erythrocyte distribution width (RBC) [Ratio] 12.5 % 11.6-14.6 [facility] MCH (RBC) [Entitic mass] 29.5 pg 27.0-32.0 [facility] Nucleated RBC/100 WBC (Bld) [Ratio] 0 % 0-5 [facility] MCHC Auto (RBC) [Mass/Vol]Or dered By: HEALTH ASSESSMENT on 12-18-2021 MCHC (RBC) [Mass/Vol] 31.9 g/dL 32-36 [facility] Nitrite Test strip Ql (U)Ord ered By: HEALTH ASSESSMENT on 12-18-2021 Nitrite Ql (U) Negative Negative [facility] No Panel InformationOrdered By: HEALTH ASSESSMENT on 12-18-2021 Estimated GFR (MDRD) Amer 127 mL/min >60 [facility] Comment on above: GFR Calc Estimated GFR (MDRD) Non-Af Amer 105 mL/min >60 [facility] Comment on above: Non- GFR Calc No Panel InformationOrdered By: Nhung Hatch on 12-18-2021 Thyroid Stimulating Hormone (TSH) 0.04 uIU/mL 0.358-3.74 [facility] Platelets bldOrdered By: HEA LTH ASSESSMENT on 12-18-2021 Platelets (Bld) [#/Vol] 330 10*3/uL 150-450 [facility] Protein Test strip Ql (U)Ord ered By: HEALTH ASSESSMENT on 12-18-2021 Protein Ql (U) 15 mg/dl Negative [facility] Segmented neutrophils/100 WB C Auto (Bld)Ordered By: HEALTH ASSESSMENT on 10-24-2022 Segmented neutrophils/100 WBC (Bld) 54.2 % 47-70 [facility] Serum or plasma albumin mamie urement (mass/volume)Ordered By: HEALTH ASSESSMENT on 12-18-2021 Albumin [Mass/Vol] 3.1 g/dL 3.2-5.0 [facility] Serum or plasma albumin/glob ulin mass ratioOrdered By: HEALTH ASSESSMENT on 12-18-2021 Albumin/Globulin [Mass ratio] 0.8 {ratio} 0.9-2.4 [facility] Serum or plasma calcium mamie urement (mass/volume)Ordered By: HEALTH ASSESSMENT on 12-18-2021 Calcium [Mass/Vol] 9.0 mg/dL 8.5-10.1 [facility] Serum or plasma cholesterol in HDL measurement (mass/volume)Ordered By: HEALTH ASSESSMENT on 12-18-2021 Cholesterol in HDL [Mass/Vol] 43 mg/dL >40 [facility] Comment on above: The drugs N-Acetylcy steine and Metamizole may falsely depress this assay. Reference Range HDL <40 mg/dL Low HDL Cholesterol HDL >or= 60 mg/dL High HDL Cholesterol Serum or plasma cholesterol in VLDL measurement (mass/volume)Ordered By: HEALTH ASSESSMENT on 12-18-2021 Cholesterol in VLDL [Mass/Vol] 22 mg/dL 5-40 [facility] Serum or plasma creatinine m easurement (mass/volume)Ordered By: HEALTH ASSESSMENT on 12-18-2021 Creatinine [Mass/Vol] 0.63 mg/dL 0.55-1.02 [facility] Comment on above: The validity of the calculated GFR & GFRAA in patients over 70 years has not been determined. Clinical correlation is essential. Serum or plasma low density lipoprotein (LDL) cholesterol measurement (mass/volume)Ordered By: HEALTH ASSESSMENT on 12-18-2021 Cholesterol in LDL [Mass/Vol] 87 mg/dL 0-130 [facility] Serum or plasma prolactin me asurement (mass/volume)Ordered By: Nhung Hatch on 12-18-2021 Prolactin [Mass/Vol] 16.6 ng/mL [facility] Comment on above: NORMAL REFERENCE RAN GES FEMALE NON- 2.2 - 30.3 ng/mL 8.1 - 347.6 ng/mL POST-MENOPAUSAL 0.7 - 31.5 ng/mL MALE 2.5 - 17.4 ng/mL Serum or plasma urea nitroge n measurement (mass/volume)Ordered By: HEALTH ASSESSMENT on 12-18-2021 Urea nitrogen [Mass/Vol] 12 mg/dL 7-18 [facility] Serum or plasma uric acid me asurement (mass/volume)Ordered By: HEALTH ASSESSMENT on 12-18-2021 Urate [Mass/Vol] 5.1 mg/dL 2.6-6.0 [facility] Comment on above: The drugs N-Acetylcy steine and Metamizole may falsely depress this assay. Thin prep Papanicolaou smear with manual screeningOrdered By: HEALTH ASSESSMENT on 12-18-2021 Thin prep Papanicolaou smear with manual screening 14 U/L 15-37 [facility] Thin prep Papanicolaou smear with manual screening 7 5-15 [facility] Thin prep Papanicolaou smear with manual screening 155 U/L 84-246 [facility] Urine blood detectionOrdered By: HEALTH ASSESSMENT on 12-18-2021 RBC Ql (U) 10 /ul Negative [facility] Urine clarityOrdered By: [facility] ASSESSMENT on 12-18-2021 Clarity (U) Sl. Cloudy Clear [facility] Urine color determinationOrd ered By: HEALTH ASSESSMENT on 12-18-2021 Color (U) Yellow Yellow [facility] Urine glucose detectionOrder ed By: HEALTH ASSESSMENT on 12-18-2021 Glucose Ql (U) Normal mg/dl Normal [facility] Urine leukocyte esterase det ection by dipstickOrdered By: HEALTH ASSESSMENT on 12-18-2021 Leukocyte esterase Test strip Ql (U) 500 /ul Negative [facility] Urine pHOrdered By: HEALTH A SSESSMENT on 12-18-2021 pH (U) 6.5 [pH] 5.0 - 8.0 [facility] Urine specific gravity measu rementOrdered By: HEALTH ASSESSMENT on 12-18-2021 Specific gravity (U) [Rel density] 1.015 1.002-1.030 [facility] Urobilinogen Auto test strip Ql (U)Ordered By: HEALTH ASSESSMENT on 12-18-2021 Urobilinogen Ql (U) 1 mg/dl Normal [facility] COVID-19 virus antigen assay Ordered By: Dr. Calles on 11-23-2021 SARS-CoV-2 (COVID-19) Ag IA.rapid Ql (Resp) [facility] Basophil percentageon 2021 WBC (Bld) [#/Vol] 7.1 10*3/uL 4.4-11.0 [facility] Work Phone: Blood erythrocytes count (nu mber/volume)on 08-24-2021 RBC (Bld) [#/Vol] 4.07 10*6/uL 4.2-5.4 [facility] Work Phone: Blood hemoglobin measurement (mass/volume)on 08-24-2021 Hemoglobin (Bld) [Mass/Vol] 12.0 g/dL 12.0-15.0 [facility] Work Phone: Blood platelet mean volumeon 08-24-2021 Platelet mean volume (Bld) [Entitic vol] 9.8 fL 6.2-12.0 [facility] Work Phone: Determination of erythrocyte mean corpuscular volume (MCV)on 08-24-2021 MCV (RBC) [Entitic vol] 94.8 fL 81-99 [facility] Work Phone: Hematocrit Auto (Bld) [Volum e fraction]on 08-24-2021 Hematocrit (Bld) [Volume fraction] 38.6 % 37-47 [facility] Work Phone: Laboratory - Hematology and Cell countson 08-24-2021 Erythrocyte distribution width (RBC) [Entitic vol] 43.8 fL 35.1-43.9 [facility] Work Phone: Erythrocyte distribution width (RBC) [Ratio] 12.6 % 11.6-14.6 [facility] Work Phone: MCH (RBC) [Entitic mass] 29.5 pg 27.0-32.0 [facility] Work Phone: MCHC Auto (RBC) [Mass/Vol]on 08-24-2021 MCHC (RBC) [Mass/Vol] 31.1 g/dL 32-36 [facility] Work Phone: Platelets bldon 08-24-2021 Platelets (Bld) [#/Vol] 323 10*3/uL 150-450 [facility] Work Phone: Serum or plasma prolactin me asurement (mass/volume)on 05-15-2021 Prolactin [Mass/Vol] 29.2 ng/mL [facility] Work Phone: Comment on above: NORMAL REFERENCE RAN GES FEMALE NON- 2.2 - 30.3 ng/mL 8.1 - 347.6 ng/mL POST-MENOPAUSAL 0.7 - 31.5 ng/mL MALE 2.5 - 17.4 ng/mL Final Surgical Pathology Rep tommie 04-01-2020 Final Surgical Pathology Report . Pathology Reports Accession: Collected Date/Time: Received Date/Time: Pathologist: [id number] 03/30/2020 14:04 EST 03/31/2020 14:16 EST RAKESH ALARCON MD Final Surgical Pathology Report DIAGNOSIS: SKIN, MIDFOREHEAD: SQUAMOUS PAPILLOMA. COMMENT: [facility] - [id number] CLINICAL INFORMATION: SLOWLY GETTING BIGGER Procedure: TANGENTIAL BIOPSY Preoperative diagnosis: SEBORRHEIC KERATOSIS WITH CUTANEOUS HORN Postoperative diagnosis: SAME SPECIMEN: A SKIN LESION, MIDDLE OF UPPER FOREHEAD GROSS DESCRIPTION: A. Received in formalin, labeled with the patients name, Case #[id number], and middle of the upper forehead skin lesion is a miller-white skin fragment measuring 0.3 x 0.3 x 0.2 cm. Excision margin inked black. TS -1. Dictated by KOBI BUI MICROSCOPIC DESCRIPTION: Slides reviewed. Electronically Signed by Pathology Report verified by [facility] Electronically signed by RAKESH ALARCON Sign out Date: 04/01/2020 15:13 Performing Lab: [facility], [address] [place] [address] Normal [facility] ([place]) Comment on above: Performed By: #### S PFR #### [address] [address] HPVon 09-03-2019 HPV Interp Normal See Interp HPVN [facility] ([place]) Comment on above: Order Comment: Order placed by [email or web address]_ORDER rule from [id number] Result Comment: High Risk HPV Typing: NEGATIVE HPV types 16, 18, 31, 33, 35, 39, 45, 51, 52, 56, 58, 59, 66 and 68 DNA were undetectable or below the pre-set threshold. The jo High-Risk HPV DNA Test is not intended for use as a screening device for Pap normal women under age 30 and is not intended to substitute for regular Pap screening. The jo High-Risk HPV DNA Test is designed to augment existing methods for the detection of cervical disease and should be used in conjunction with clinical information derived from other diagnostic and screening tests, physical examinations and full medical history in accordance with appropriate patient management procedures. NOTE: A negative result does not preclude the presence of HPV infection because results depend on adequate specimen collection, absence of inhibitors and sufficient DNA to be detected. See Interp HPVN Performed By: #### H PV #### [place] [address] HPV Source Cervix Normal [facility] ([place]) Comment on above: Order Comment: Order placed by [email or web address] rule from [id number] Performed By: #### H PV #### [place] [address] [employer] Cytology Reporton 2019 [employer] Cytology Report . Pathology Reports Accession: Collected Date/Time: Received Date/Time: Pathologist: [id number] 08/19/2019 12:16 EDT 08/20/2019 18:00 EDT [employer] Cytology Report SPECIMEN: Specimen Description: Liquid Prep w/ HPV Specimen: Cervical/Endocervi patria Screening or Diagnostic: Screening RELEVANT HISTORY: LMP: unknown [id number] SPECIMEN ADEQUACY: SATISFACTORY FOR EVALUATION ENDOCERVICAL/TRANS FORMATIONAL ZONE COMPONENT PRESENT INTERPRETATION/RES ULTS: NEGATIVE FOR INTRAEPITHELIAL LESION OR MALIGNANCY ADJUNCTIVE TESTING: HIGH RISK HPV DNA TESTING ORDERED, REPORT TO FOLLOW UNDER SEPARATE COVER COMMENT: This Pap Test was successfully processed and evaluated with the assistance of the kapturem ThinPrep Test Imaging System. Electronically Signed by Pathology report verified by [facility]. Screened by: MAURO Electronically signed by Natalie CORBIN (ASCP) Sign-Out Date: 08/31/2019 11:34 Performing Lab: [address] Disclaimer The Pap test is a screening test for cervical cancer. As evidenced by published data, it is subject to both inherent false negative and false positive results. Your patient's results should be interpreted in context with pertinent clinical history including gynecological examination. Normal [facility] ([place]) Comment on above: Performed By: #### G YCR #### [facility] [address] [place], [place] [address] Office Visiton 09-03-2016 Documentation of current medications (procedure) Done Invalid Interpretation Code [facility] Work Phone: Tobacco smoking status NHIS Never Invalid Interpretation Code [facility] Work Phone: Tobacco use CPHS Never smoker Invalid Interpretation Code [facility] Work Phone: Office Visit: Spine Visit- L neck & shoulder painon 06-04-2016 Documentation of current medications (procedure) Done Invalid Interpretation Code [facility] Work Phone: Clinical 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 Tobacco use CPHS never smoker Invalid Interpretation Code [facility] Work Phone: COVID-19 virus antigen assay SARS-CoV-2 (COVID-19) Ag IA.rapid Ql (Resp) [facility] Work Phone: Vital Signs Date Time Vital Sign Value Performing Clinician Facility 10-20-2024 17:08-0400 Body height 170.18 cm Chani Khan [facility] Work Phone: [facility] 10-20-2024 17:08-0400 Body mass index (BMI) [Ratio] 39.1 kg/m2 Chani Khan [facility] Work Phone: [facility] 10-20-2024 17:08-0400 Body temperature 97.9 [degF] Chani Khan [facility] Work Phone: [facility] 10-20-2024 17:08-0400 Body weight 113.39 kg Chani Khan [facility] Work Phone: [facility] 10-20-2024 17:08-0400 Diastolic blood pressure 78 mm[Hg] Chani Khan [facility] Work Phone: [facility] 10-20-2024 17:08-0400 Heart rate 90 /min Chani Bl[place] [facility] Work Phone: [facility] 10-20-2024 17:08-0400 SaO2% (BldA) [Mass fraction] 96 % Chanibelgica Khan [facility] Work Phone: [facility] 10-20-2024 17:08-0400 Systolic blood pressure 128 mm[Hg] Chaniyuimko Khan [facility] Work Phone: [facility] 06-12-2024 08:23-0400 Body height 170.18 cm Chani Khan [facility] Work Phone: [facility] 06-12-2024 08:23-0400 Body mass index (BMI) [Ratio] 39.2 kg/m2 Chani Mcgovernmer [facility] Work Phone: [facility] 06-12-2024 08:23-0400 Body weight 113.45 kg Chani Khan [facility] Work Phone: [facility] 06-12-2024 08:23-0400 Diastolic blood pressure 84 mm[Hg] Chani Khan [facility] Work Phone: [facility] 06-12-2024 08:23-0400 Heart rate 81 /min Chani Mcgovernmer [facility] Work Phone: [facility] 06-12-2024 08:23-0400 SaO2% (BldA) [Mass fraction] 95 % Chani Khan [facility] Work Phone: [facility] 06-12-2024 08:23-0400 Systolic blood pressure 135 mm[Hg] Chani Khan [facility] Work Phone: [facility] 06-14-2023 09:30-0400 Body height 170.18 cm [facility] Chani Khan [facility] Work Phone: [facility] 06-14-2023 09:30-0400 Body mass index (BMI) [Ratio] 37.1 kg/m2 [facility] Chani Bill [facility] Work Phone: [facility] 06-14-2023 09:30-0400 Body temperature 97.8 [degF] [facility] Chani Khan [facility] Work Phone: [facility] 06-14-2023 09:30-0400 Body weight 107.61 kg [facility] Chani Bill [facility] Work Phone: [facility] 06-14-2023 09:30-0400 Diastolic blood pressure 79 mm[Hg] [facility] Chani Mcgovernmer [facility] Work Phone: [facility] 06-14-2023 09:30-0400 Heart rate 84 /min [facility] Chani Khan [facility] Work Phone: [facility] 06-14-2023 09:30-0400 Systolic blood pressure 131 mm[Hg] [facility] Chani Bill [facility] Work Phone: [facility] 06-11-2022 09:51-0400 Body height 170.18 cm [facility] Chani Khan [facility] Work Phone: [facility] 06-11-2022 09:51-0400 Body mass index (BMI) [Ratio] 36.1 kg/m2 [facility] Chani Khan [facility] Work Phone: [facility] 06-11-2022 09:51-0400 Body temperature 98.6 [degF] [facility] Chani Bill [facility] Work Phone: [facility] 06-11-2022 09:51-0400 Body weight 104.55 kg [facility] Chani Khan [facility] Work Phone: [facility] 06-11-2022 09:51-0400 Diastolic blood pressure 87 mm[Hg] [facility] Chanibelgica Khan [facility] Work Phone: [facility] 06-11-2022 09:51-0400 Heart rate 80 /min [facility] Chani Khan [facility] Work Phone: [facility] 06-11-2022 09:51-0400 Respiratory rate 18 /min [facility] Chani Khan [facility] Work Phone: [facility] 06-11-2022 09:51-0400 SaO2% (BldA) [Mass fraction] 94 % [facility] Chani Khan [facility] Work Phone: [facility] 06-11-2022 09:51-0400 Systolic blood pressure 131 mm[Hg] [facility] Chani Khan [facility] Work Phone: [facility] 03-30-2022 13:02-0500 Body mass index (BMI) [Ratio] 36.1 kg/m2 [facility] Chani Khan [facility] Work Phone: [facility] 03-30-2022 13:02-0500 Body weight 104.49 kg [facility] Chani Khan [facility] Work Phone: [facility] 03-30-2022 13:02-0500 Diastolic blood pressure 82 mm[Hg] [facility] Chani Khan [facility] Work Phone: [facility] 03-30-2022 13:02-0500 Systolic blood pressure 135 mm[Hg] [facility] Chani Khan [facility] Work Phone: [facility] 03-05-2022 09:28-0500 Body mass index (BMI) [Ratio] 36.3 kg/m2 [facility] Chani Khan [facility] Work Phone: [facility] 03-05-2022 09:28-0500 Body weight 105.23 kg [facility] Chani Khan [facility] Work Phone: [facility] 03-05-2022 09:28-0500 Diastolic blood pressure 80 mm[Hg] [facility] Chani Khan [facility] Work Phone: [facility] 03-05-2022 09:28-0500 Systolic blood pressure 126 mm[Hg] [facility] Chani Bill [facility] Work Phone: [facility] 03-02-2022 12:06-0500 Body mass index (BMI) [Ratio] 36.1 kg/m2 [facility] Chani [place] [facility] Work Phone: [facility] 03-02-2022 12:06-0500 Body weight 104.83 kg [facility] Chani [place] [facility] Work Phone: [facility] 03-02-2022 12:06-0500 Diastolic blood pressure 78 mm[Hg] [facility] Chani [place] [facility] Work Phone: [facility] 03-02-2022 12:06-0500 Systolic blood pressure 132 mm[Hg] [facility] Chani [place] [facility] Work Phone: [facility] 02-20-2022 18:30-0500 Body temperature 97 [degF] [facility] Chani Bill [facility] Work Phone: [facility] 02-20-2022 18:30-0500 Diastolic blood pressure 88 mm[Hg] [facility] Chani [place] [facility] Work Phone: [facility] 02-20-2022 18:30-0500 Heart rate 84 /min [facility] Chani [place] [facility] Work Phone: [facility] 02-20-2022 18:30-0500 Respiratory rate 16 /min [facility] Chani [place] [facility] Work Phone: [facility] 02-20-2022 18:30-0500 SaO2% (BldA) [Mass fraction] 98 % [facility] Chani [place] [facility] Work Phone: [facility] 02-20-2022 18:30-0500 Systolic blood pressure 144 mm[Hg] [facility] Chani [place] [facility] Work Phone: [facility] 02-20-2022 15:00-0500 Inhaled oxygen flow rate 4 L/min [facility] Chani Mcgovernmer [facility] Work Phone: [facility] 02-20-2022 08:59-0500 Body height 170.18 cm [facility] Chani Mcgovernmer [facility] Work Phone: [facility] Work Phone: 02-20-2022 08:59-0500 Body mass index (BMI) [Ratio] 36.9 kg/m2 [facility] Chani Bill [facility] Work Phone: [facility] 02-20-2022 08:59-0500 Body weight 107.1 kg [facility] Chani Mcgovernmer [facility] Work Phone: [facility] 02-08-2022 08:24-0500 Body mass index (BMI) [Ratio] 37.3 kg/m2 [facility] Chani [place] [facility] Work Phone: [facility] 02-08-2022 08:24-0500 Body weight 107.95 kg [facility] Chani Mcgovernmer [facility] Work Phone: [facility] 02-08-2022 08:24-0500 Diastolic blood pressure 82 mm[Hg] [facility] Chani Mcgovernmer [facility] Work Phone: [facility] 02-08-2022 08:24-0500 Systolic blood pressure 144 mm[Hg] [facility] Chani Bill [facility] Work Phone: [facility] 09-07-2021 11:37-0400 Body height 170.[address] Stephen Black Work Phone: [facility] Work Phone: 09-07-2021 11:33-0400 Body mass index (BMI) [Ratio] 36.8 kg/m2 Dr. Stephen Black Work Phone: [facility] Work Phone: 09-07-2021 11:33-0400 Body weight 106.[address] Stephen Black Work Phone: [facility] Work Phone: 09-07-2021 11:33-0400 Diastolic blood pressure 81 mm[Hg] Dr. Stephen Black Work Phone: [facility] Work Phone: 09-07-2021 11:33-0400 Systolic blood pressure 117 mm[Hg] Dr. Stephen Black Work Phone: [facility] Work Phone: 06-08-2021 10:05-0400 Body height 170.[address] Stephen Black Work Phone: [facility] Work Phone: 06-08-2021 10:05-0400 Body mass index (BMI) [Ratio] 37.4 kg/m2 Dr. Stephen Black Work Phone: [facility] Work Phone: 06-08-2021 10:05-0400 Body temperature 97.2 [degF] Dr. Stephen Black Work Phone: [facility] Work Phone: 06-08-2021 10:05-0400 Body weight 108.[address] Stephen Black Work Phone: [facility] Work Phone: 06-08-2021 10:05-0400 Diastolic blood pressure 80 mm[Hg] Dr. Stephen Black Work Phone: [facility] Work Phone: 06-08-2021 10:05-0400 Heart rate 90 /min Dr. Stephen Black Work Phone: [facility] Work Phone: 06-08-2021 10:05-0400 Respiratory rate 18 /min Dr. Stephen Black Work Phone: [facility] Work Phone: 06-08-2021 10:05-0400 SaO2% (BldA) [Mass fraction] 97 % Dr. Stephen Black Work Phone: [facility] Work Phone: 06-08-2021 10:05-0400 Systolic blood pressure 110 mm[Hg] Dr. Stephen Black Work Phone: [facility] Work Phone: 09-03-2016 16:24-0400 BMI (Body Mass Index) 43.27 kg/m2 [facility] Work Phone: 09-03-2016 16:24-0400 Height 144.78 cm [facility] Work Phone: 09-03-2016 16:24-0400 Weight 90.72 kg [facility] Work Phone: 11-04-2012 16:06-0400 BMI (Body Mass Index) 30.81 kg/m2 Yolanda Dossi DC [facility] Work Phone: 11-04-2012 16:06-0400 Body Temperature 99.4 [degF] Yolanda Dossi DC [facility] Work Phone: 11-04-2012 16:06-0400 BP Diastolic 79 mm[Hg] Yolanda Dossi DC [facility] Work Phone: 11-04-2012 16:06-0400 BP Systolic 125 mm[Hg] Yolanda Dossi DC [facility] Work Phone: 11-04-2012 16:06-0400 BSA (Body Surface Area) 1.96 m2 Yolanda Dossi DC [facility] Work Phone: 11-04-2012 16:06-0400 Height 167.64 cm Yolanda Dossi DC [facility] Work Phone: 11-04-2012 16:06-0400 Pulse (Heart Rate) 76 /min Yolanda Pena DC [facility] Work Phone: 11-04-2012 16:06-0400 Respiratory Rate 14 /min Yolanda Dossi DC [facility] Work Phone: 11-04-2012 16:06-0400 Weight 86.27 kg Yolanda Dossi DC [facility] Work Phone: Encounters Encounter Date Encounter Type Care Provider Facility Start: 10-20-2024 End: 10-20-2024 Patient encounter procedure Chandana Luna [place] [facility] Work Phone: Start: 10-20-2024 End: 10-20-2024 ambulatory Chani Khan [facility] Work Phone: [facility] Start: 08-25-2024 Non-patient / Non-visit Dr. Jacklyn Meza MD -[facility] Work Phone: Start: 06-12-2024 End: 06-12-[address] Arnulfo Mishra MD -[facility] Work Phone: Start: 06-12-2024 End: 06-12-2024 ambulatory Arnulfo Tad Facility:[facility] Start: 06-10-2024 End: 06-10-2024 ambulatory Chani Khan [facility] Work Phone: [facility] Work Phone: Start: 06-10-2024 End: 06-10-[address] [facility] Start: 06-10-2024 End: 06-10-2024 ambulatory Arnulfo Mishra Facility:[facility] Start: 02-05-2024 End: 02-05-2024 ambulatory Chani Khan NP Facility:[facility] Start: 12-24-[facility] Start: 12-19-2023 End: 12-19-2023 ambulatory Thais Echeverria Facility:[facility] Start: 11-29-2023 ambulatory Chani Khan NP Facil ity:[facility] Start: 06-14-2023 End: 06-14-2023 Patient encounter procedure [facility] Chani Khan [facility] Work Phone: [facility] Work Phone: Start: 06-13-2023 End: 06-13-2023 ambulatory [facility] Chani Khan [facility] Work Phone: [facility] Work Phone: Start: 06-13-2023 End: 06-13-2023 Patient encounter procedure [facility] Chani Khan [facility] Work Phone: [facility] Work Phone: Start: 07-05-2022 End: 07-05-2022 ambulatory [facility] Chani Khan [facility] Work Phone: [facility] Work Phone: Start: 07-05-2022 End: 07-05-2022 Patient encounter procedure [facility] Chani Khan [facility] Work Phone: [facility]-Laboratory Start: 06-11-2022 End: 06-11-2022 Patient encounter procedure [facility] Chani Khan [facility] Work Phone: [facility] Start: 03-30-2022 End: 03-30-2022 Patient encounter procedure [facility] Chani Khan [facility] Work Phone: [facility] Start: 03-19-2022 End: 03-19-2022 ambulatory [facility] Chani Khan [facility] Work Phone: [facility] Work Phone: Start: 03-19-2022 End: 03-19-2022 Patient encounter procedure [facility] Chani Khan [facility] Work Phone: [facility], [facility] Start: 03-05-2022 End: 03-05-2022 Patient encounter procedure [facility] Chani Khan [facility] Work Phone: [facility] Start: 03-02-2022 End: 03-02-2022 ambulatory [facility] Chani Khan [facility] Work Phone: [facility] Work Phone: Start: 03-02-2022 End: 03-02-2022 Patient encounter procedure [facility] Chani Khan [facility] Work Phone: [facility] Start: 02-20-2022 Non-patient / Non-visit [facility] Chani Khan [facility] Work Phone: [facility] Start: 02-20-2022 End: 02-20-2022 Admission to same day surgery center [facility] Chani Khan [facility] Start: 02-20-2022 End: 02-20-2022 ambulatory [facility] Chani Khan [facility] Work Phone: [facility] Work Phone: Start: 02-14-2022 End: 02-14-2022 Non-patient / Non-visit [facility] Chani Khan [facility] Work Phone: [facility] Start: 02-09-2022 Non-patient / Non-visit [facility] Chani Khan [facility] Work Phone: [facility] Start: 02-08-2022 End: 02-08-2022 Patient encounter procedure [facility] Chani Khan [facility] Work Phone: [facility] Start: 12-18-2021 End: 12-18-[address] Stephen Black Work Phone: [facility] Work Phone: Start: 12-18-2021 End: 12-18-[address] Stephen Black Work Phone: [facility] Start: 12-18-[address] Stephen Black Work Phone: [facility] Start: 11-23-[address] [facility] Start: 09-13-2021 End: 09-13-[address] Stephen Black [facility] Start: 09-07-2021 End: 09-07-[address] Stephen Black [facility] Start: 09-07-2021 End: 09-07-[address] Stephen Black Work Phone: [facility] Start: 08-24-2021 End: 08-24-[address] Stephen Black Work Phone: [facility] Start: 06-08-2021 End: 06-08-[address] Stephen Black Work Phone: [facility] End[facility] Start: 05-15-2021 End: 05-15-2021 Patient encounter procedure [facility] Procedures Date Procedure Procedure Detail Performing Clinician Start: 03-19-2022 Pelvic echography [facility] Chani Khan [facility] Work Phone: Start: 03-19-2022 Transvaginal echography [facility]Salima Khan [facility] Work Phone: Start: 02-20-2022 Vaginal hysterectomy [facility] -Salima Khan [facility] Work Phone: Start: 09-13-[address] Reina Black Work Phone: Start: 09-13-[address] Stephen Black Work Phone: Start: 05-15-2021 Screening mammography Start: 06-04-2016 End: 06-26-2016 Chiropract manj 1-2 regions Vernellgelacio Beltrán Start: 06-04-2016 End: 06-26-2016 Ultrasound therapy Vernell Beltrán Start: 05-30-2016 End: 05-30-2016 Chiropract manj 1-2 regions Yolanda B Dossi DC Work Phone: Start: 05-30-2016 End: 05-30-2016 Ultrasound therapy Yolanda Graff Dossi DC Work Phone: Start: 05-29-2016 End: 05-29-2016 Chiropract manj 1-2 regions Yolanda B Dossi DC Work Phone: Start: 05-29-2016 End: 05-29-2016 Electric stimulation therapy Yolanda Graff Dossi DC Work Phone: Start: 05-29-2016 End: 05-29-2016 Ultrasound therapy Yolanda Graff Dossi DC Work Phone: Urine culture [facility] Chani dudley [facility] Work Phone: Urine culture [facility] Chani dudley [facility] Work Phone: Viral antigen assay Dr. Lucía Black Work Phone: Viral antigen assay [facility] Vivian Khan [facility] Work Phone: Plan of Treatment Date Care Activity Detail Author Start: 02-21-2022 Introduction of urinary catheter [facility] Work Phone: Start: 02-21-2022 Oxygen therapy [facility] Work Phone: Start: 02-20-2022 Patient discharge [facility] Start: 02-20-2022 Anesthesia intraperitoneal lower abd w/laps nos ANESTH SURG LOWER ABDOMEN [facility] Start: 02-20-2022 Laps vaginal hysterect > 250 gm rmvl tube&/ovar LAPARO-VAG HYST W/T/O COMPL [facility] Start: 02-20-2022 Introduction of urinary catheter [facility] Start: 02-20-2022 Ambulation therapy management [facility] Start: 02-20-2022 Continuous pulse oximetry [facility] Start: 02-20-2022 Elevation of head of bed [facility] Start: 02-20-2022 Incentive spirometry [facility] Start: 02-20-2022 Measuring intake and output [facility] Start: 02-20-2022 Notification of physician [facility] Start: 02-20-2022 End: 02-20-2022 Oxygen therapy [facility] Start: 02-20-2022 Patient education [facility] Start: 02-20-2022 Procedures relating to eating and drinking [facility] Start: 02-20-2022 Taking patient vital signs [facility] Start: 02-20-2022 [facility] Start: 09-07-2021 Patient referral [facility] Work Phone: Start: 09-05-2016 End: 09-05-2016 Physical Therapy General Physical Therapy [facility], [address] [place] [address], [facility] Work Phone: Start: 06-04-2016 End: 06-26-2016 Follow up Appt 3x/week Follow up Appt 3x/week [facility] Work Phone: Start: 05-30-2016 End: 05-30-2016 Follow up Appt 3x/week Follow up Appt 3x/week [facility] Work Phone: Start: 05-29-2016 End: 05-29-2016 Follow up Appt 3x/week Follow up Appt 3x/week [facility] Work Phone: Start: 05-22-2016 End: 05-22-2016 X-ray exam of neck spine X-Ray, Spine, Cervical 2-3 views [facility] Work Phone: CBC W Auto Different ial panel - Blood [facility] Work Phone: DXA Bone [Mass/Area] Bone density [facility] Electrocardiographic procedure [facility] Work Phone: Electrocardiographic procedure [facility] Patient referral [facility] Work Phone: Prolactin [Mass/volu me] in Serum or Plasma [facility] Work Phone: Prolactin [Mass/volu me] in Serum or Plasma [facility] Prolactin measurement [facility] T4 free measurement [facility] Work Phone: T4 free measurement [facility] Thyroid stimulating hormone measurement [facility] Work Phone: Thyroid stimulating hormone measurement [facility] Immunizations Immunization Date Immunization Notes Care Provider Fa [facility] 11-23-2023 influenza, seasonal, injectable, preservative free Chani Blountstown [facility] Work Phone: [facility] 01-11-2023 influenza, injectabl e, quadrivalent, preservative free [facility] Chani Bill [facility] Work Phone: [facility] 01-17-2022 influenza, injectabl e, quadrivalent, preservative free [facility] Chani [place] [facility] Work Phone: [facility] 01-17-2022 influenza, seasonal, injectable [facility] Chani [place] [facility] Work Phone: [facility] 02-15-2021 Covid (Pfizer) [facility] 01-25-2021 Covid (Pfizer) [facility] 12-16-2020 influenza, injectabl e, quadrivalent, preservative free [facility] Chani Bill [facility] Work Phone: [facility] 12-16-2020 influenza, seasonal, injectable [facility] 11-23-2019 influenza, injectabl e, quadrivalent, preservative free [facility] Hcani Bill [facility] Work Phone: [facility] 11-23-2019 influenza, seasonal, injectable [facility] 12-10-2018 influenza, injectabl e, quadrivalent, preservative free [facility] Chani Khan [facility] Work Phone: [facility] 12-10-2018 influenza, seasonal, injectable [facility] 11-23-2017 influenza, injectabl e, quadrivalent, preservative free [facility] Chani Khan [facility] Work Phone: [facility] 11-23-2017 influenza, seasonal, injectable [facility] 11-21-2016 influenza, injectabl e, quadrivalent, preservative free [facility] Chani Mcgovernmer [facility] Work Phone: [facility] 11-21-2016 influenza, seasonal, injectable [facility] 12-05-2015 hepatitis B vaccine, pediatric or pediatric/adolescent dosage [facility] 11-27-2015 influenza, injectabl e, quadrivalent, preservative free [facility] Chanibelgica Khan [facility] Work Phone: [facility] 11-27-2015 influenza, seasonal, injectable [facility] 02-07-2015 influenza, injectabl e, quadrivalent, preservative free [facility] Cahni Khan [facility] Work Phone: [facility] 02-07-2015 influenza, seasonal, injectable [facility] [facility] measles, mumps and rubella virus vaccine [facility] 01-17-2015 hepatitis B vaccine, pediatric or pediatric/adolescent dosage [facility] 01-17-2015 tetanus toxoid, redu yvon diphtheria toxoid, and acellular pertussis vaccine, adsorbed [facility] 11-11-2013 influenza, injectabl e, quadrivalent, preservative free [employer] Chani Khan [employer] Work Phone: [facility] 11-11-2013 influenza, seasonal, injectable [facility] Payers Date Payer Category Payer Self-pay [id number] 2023 Unknown [id number] [facility] [id number] 2016 Unknown [id number] Unknown [id number] 2.16.8 [id number] Unknown [id number] 2.16.8 [id number] Unknown [id number] 2.16.8 [id number] Unknown [id number] 2.16.8 [id number] Unknown [id number] 2.16.8 [id number] Unknown [id number] 2.16.8 [id number] Unknown [id number] 2.16.8 [id number] Unknown [id number] 2.16.8 [id number] Social History Date Type Detail Facility Start: 10-22-2020 End: 06-11-2022 Tobacco smoking status IDIS Unknown if ever smoked [facility] Start: 1970 Sex Assigned At Female [facility] Start: 02-05-2024 Tobacco smoking status NHIS Never smoked tobacco (finding) [facility] Start: 06-15-2024 Sex Female (finding) [facility] NEGATED: Highlighted row [facility] Medical Equipment Procedure Code Equipment Code Equipment Origin al Text Equipment Identifier Dates Laparoscopy with vaginal hysterectomy SEALANT,FLOSEAL HEMOSTATIC 5ML FDA Start: 02-20-2022 Laparoscopy with vaginal hysterectomy SEALANT,FLOSEAL HEMOSTATIC 5ML FDA Start: 02-20-2022 Laparoscopy with vaginal hysterectomy SEALANT,FLOSEAL HEMOSTATIC 5ML FDA Start: 02-20-2022 Laparoscopy with vaginal hysterectomy SEALANT,FLOSEAL HEMOSTATIC 5ML FDA Start: 02-20-2022 Laparoscopy with vaginal hysterectomy SEALANT,FLOSEAL HEMOSTATIC 5ML FDA Start: 02-20-2022 Laparoscopy with vaginal hysterectomy SEALANT,FLOSEAL HEMOSTATIC 5ML FDA Start: 02-20-2022 Goals Date Patient Goal Desired Activity /State Functional Status Date Assessment Result Facility 02-20-2022 Functional status Ambulates [facility] Work Phone: Mental Status Date Assessment Result Facility 02-20-2022 Cognitive function Level Of Consciousness Sedated [facility] Work Phone: 02-20-2022 Cognitive function Voice/Name [facility] Work Phone: Clinical Notes 02-14-2022 to 06-12-2024 Note Date & Type Note Facility 06-12-2024 Evaluation note Diagnosis Onset Date Resolution Hyperprolactinemia chronic June 12, 2024 8:22am 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 Patient never had previous colonoscopy. Patient denies any family history of colon cancer. Patient has bowel movements every 2 to 3 days denies any blood. Patient denies any chronic abdominal pain/nausea/vomiting. Patient does have reflux takes [id number] omeprazole 20 mg p.o. daily which takes care of the symptoms. [facility] Medical History Low iron Shortness of breath on exertion Streptococcus agalactiae infection Infection due to ESBL-producing Escherichia coli Wears glasses Cancer Anxiety Alcohol use Thyroid disease Gastric reflux Non-smoker Status post hysteroscopy Hyperprolactinemia Hypothyroidism Hyperlipidemia Female fertility problems Asthma Shoulder pain Home Medications ???Medication ???Instructions ???Recorded ???Last Taken ???Type fluticasone propionate 50 50 mcg intranasal DAILY PRN PRN 04/14/17 Unknown History mcg/actuation nasal allergy symptoms spray,suspension albuterol sulfate 90 mcg/actuation 1 - 2 puff inhalation Q4H PRN PRN 04/29/17 02/20/22 History aerosol inhaler Wheezing fluticasone propionate 230 2 puff inhalation BID 05/19/19 02/20/22 History mcg-salmeterol 21 mcg/actuation HFA inhaler (Advair HFA) lansoprazole 15 mg capsule,delayed 15 mg PO DAILY 02/20/22 02/20/22 History release levothyroxine 125 mcg tablet 125 mcg PO DAILY #90 tabs 12/17/23 02/05/24 Rx cabergoline 0.5 mg tablet 0.5 mg PO WE 02/03/24 Unknown History venlafaxine 75 mg capsule,extended 150 mg PO DAILY 02/03/24 Unknown History release 24 hr Allergy/AdvReac Type Severity Reaction Status Date / Time shellfish derived Allergy Angioedema Verified 02/05/24 08:45 amoxicillin (From Augmentin) AdvReac Diarrhea Verified 02/05/24 08:45 clavulanic acid (From AdvReac Diarrhea Verified 02/05/24 08:45 Augmentin) Family History Other A-fib Anxiety Asthma COPD (chronic obstructive pulmonary disease) Celiac disease Hypercholesterolemia Thyroid disorder Surgical History History of [facility] History of [facility] S/P laparoscopy Glomus tumor Hx of cholecystectomy Social History household members: spouse current occupational status: employed sexually active: Yes Smoking Status: Never smoker alcohol intake: current alcohol intake frequency: a few times a week Alcohol type: wine and hard liquor substance use type: does not use what type of physical activity do you participate in: none seatbelt use: always do you feel safe at home: Yes additional social history: - Registration at [facility] Past Medical/Surgical History Planned Operation Planned Operative Procedure(s): CSCOPE OA S.O.S: No Previous Hospitalizations/Surgeries HX Hospitalizations: No HX of Surgeries: 2004 TUMOR REMOVED EAR GALLBLADDER D AND C X2 1990'S LAPAROSCOPY FOR INFERTILITY Any Problems With Anesthesia: No You/Your Family Experience Fever (Hyperthermia) With Anes: No Cholinesterase deficiency: No Cardiovascular Hx Chest Pain within Last 2 months: No Hx of Irregular Heartbeat and/or Afib: No Hx Heart Attack: No Hx Congestive Heart Failure: No Hx Rheumatic Fever: No Hx Hypertension: No Hx Internal Defibrillator: No Hx Pacemaker: No Hx Cardiac Catheterization: No Hx Cardiac Surgery/Stents/Etc.: No Hx Stress Test: No Hx Pain in Legs when Walking/Leg Cramps: No Respiratory Chronic Cough: No HX of Shortness of Breath: Yes (SOB WITH 2 FLIGHTS STAIRS) Hoarseness: No Hx Chronic Obstructive Pulmonary Disease (COPD): No Hx Asthma: Yes Hx Emphysema: No Hx Sleep Apnea: No CPAP: No Hx Respiratory Tract Infection/Cold (presently): No Do You Snore Loudly (louder than talking or can be heard): No Do You Often Feel Tired/ Fatigued/ Sleepy [place]ring Daytime?: No Has Anyone Observed You Stop Breathing During Sleep?: No Result (for STOP score): Negative Hx Smoking: No Smoking Status: Never smoker Gastrointestinal Hx Gastrointestinal Disorders: No Hx Gastrointestinal Bleed: No Hx Ulcer: No Hx Hiatal Hernia: No Difficulty Chewing/Swallowing: Yes (HAS TROUBLE SWALLOWING) Special diet followed at home: No Hx Unplanned Weight Loss of 20#: No HX Unplanned Weight Gain of 20#: No Neurological (more content not included)...[facility]12-21-2022 Hospital Discharge instructionsAmbulatory Orders* 12 Lead EKG [[facility]] Time Frame: 02/14/22, Location: None Selected [facility] Work Phone: evaluation noteNo assessment information available [facility] Work Phone: evaluation note* Diagnosis Onset Date Resolution Status Hyperprolactinemia chronic 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 [facility] Work Phone: evaluation note* Diagnosis Onset Date Resolution Status Hyperprolactinemia chronic 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 Abnormal uterine bleeding [place] Hyperprolactinemia chronic 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 [facility] Work Phone: Evaluation note* Diagnosis Onset Date Resolution Status Abnormal uterine bleeding [place] Hyperprolactinemia chronic 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 [facility] Work Phone: Evaluation note* Diagnosis Onset Date Resolution Status Abnormal uterine bleeding [place] Hyperprolactinemia chronic 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 Abnormal uterine bleeding [place] S/P laparoscopic assisted vaginal hysterectomy (LAVH) [facility] Work Phone: Evaluation note* Diagnosis Onset Date Resolution Status Abnormal uterine bleeding [place] Hyperprolactinemia chronic 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 Abnormal uterine bleeding [place] S/P laparoscopic assisted vaginal hysterectomy (LAVH) acute Infection due to ESBL-producing Escherichia coli acute Streptococcus agalactiae infection [facility] Work Phone: Evaluation note* Diagnosis Onset Date Resolution Status Encounter for postoperative care noneactive Hyperprolactinemia chronic 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 [facility] Work Phone: Reason for referral (narrative)No reason for referral [facility] Work Phone: Summary Purpose Family History No Family History Records Found Relationship Condition Age at Onset Recorded Date/T dileep Not Specified Anxiety Unknown Atrial fibrillation Unknown Hypercholesterolemia Unknown Chronic obstructive pulmonary disease Unk nown Celiac disease Unknown Disorder of thyroid Unknown Asthma Unknown Relationship Condition Age at Onset Recorded Date/T dileep Not Specified Phlebitis and thrombophlebitis Unknown Spontaneous Unknown Anxiety Unknown Coagulation disorder Unknown Atrial fibrillation Unknown Cardiac disease Unknown Hypercholesterolemia Unknown Chronic obstructive pulmonary disease Unk nown Cystic fibrosis Unknown Endometriosis Unknown Celiac disease Unknown Disorder of thyroid Unknown Asthma Unknown Advance Directives No Advanced Directives Records Found Advance Directive Response Recorded Date/ Time Living Will No September 07, 2018 7:38pm Power of Customs Appraiser No September 07 9 7:38pm Advance Directive Response Recorded Date/ Time Living Will No February 13 022 11:21am Power of Customs Appraiser No February 13, 2022 11:21am Advance Directive Response Recorded Date/ Time Living Will No March 05 3 9:59am Power of Customs Appraiser No March 05 2 023 9:59am Advance Directive Response Recorded Date/ Time Living Will No March 05 3 10:59am Power of Customs Appraiser No March 05 023 10:59am Advance Directive Response Recorded Date/ Time Living Will No March 05 10:59am Do you have a Healthcare Power of Customs Appraiser? No March 05, 2022 10:59am Chief Complaint and Reason for Visit Chief Complaint EORDER Chief Complaint EORDER 1 Y FU Reason for Visit Hyperprolactinemia 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 Chief Complaint 1 Y FU excessive bleeding, ref by Chani Khan EMB AUB Reason for Visit Hyperprolactinemia 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 Abnormal uterine bleeding Hyperprolactinemia 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 Chief Complaint excessive bleeding, ref by Chani MAHONEY AUB Reason for Visit Abnormal uterine ble eding Hyperprolactinemia 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 Chief Complaint excessive bleeding, ref by Chani MAHONEY AUB [employer]OYEE [employer] EORDER Reason for Visit Abnormal uterine ble eding Hyperprolactinemia 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 Chief Complaint EMPLOYEE LABS EORDER LAVHBS LAVH BILAT SALPING LAVH BILAT SALPING LAVH BILAT SALPING Reason for Visit Abnormal uterine ble eding Hyperprolactinemia 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 Abnormal uterine bleeding S/P laparoscopic assisted vaginal hysterectomy (LAVH) Chief Complaint EMPLOYEE LABS EORDER LAVHBS LAVH BILAT SALPING LAVH BILAT SALPING LAVH BILAT SALPING EORDER UA post op LAVHBS Reason for Visit Abnormal uterine ble eding Hyperprolactinemia 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 Abnormal uterine bleeding S/P laparoscopic assisted vaginal hysterectomy (LAVH) Infection due to ESBL-producing Escherichia coli Streptococcus agalactiae infection Chief Complaint EMPLOYEE LABS EORDER LAVHBS LAVH BILAT SALPING PREOP LAVH BILAT SALPING LAVH BILAT SALPING EORDER UA post op LAVHBS Streptococcal infection, unspecified site Reason for Visit Abnormal uterine ble eding Hyperprolactinemia 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 Abnormal uterine bleeding S/P laparoscopic assisted vaginal hysterectomy (LAVH) Infection due to ESBL-producing Escherichia coli Streptococcus agalactiae infection Chief Complaint Streptococcal infect ion, unspecified site 6 WK POST OP 1 Y FU E-ORDER Reason for Visit Encounter for postop erative care Hyperprolactinemia 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 Chief Complaint Admit Date EORDER AND ADDT. ORDER June 10, 2024 4:31pm 1 Y FU June 12, 2024 8:2 2am Reason for Visit Admit Date Hyperprolactinemia June 12, 2024 8:2 2am Hypothyroidism due to Shelby's thyroi ditis June 12, 2024 8:22am Obesity June 12, 2024 8:2 2am Chief Complaint Admit Date EAR PAIN, BODY ACHES, October 20, 2024 4:53pm Additional Source Comments INFORMATION SOURCE (unrecogn ized section and content) DATE CREATED AUTHOR 04/04/2020 [facility] ([place]) DATE CREATED AUTHOR AUTHOR'S ORGANIZ ATION 10/22/2024 [facility] Goals (unrecognized section and content) Goals may be documented in a n alternate sectionGoals may be documented in an alternate sectionGoals may be documented in an alternate sectionGoals may be documented in an alternate sectionGoals may be documented in an alternate sectionGoals may be documented in an alternate sectionGoals may be documented in an alternate sectionGoals may be documented in an alternate sectionGoals may be documented in an alternate section Care Teams (unrecognized sec tion and content) Team Status: Active Member Role Status Dates Dr. Stephen Black MD Family Provider Active Chani Khan NP, [employer] Primary Care Provider Active Team Status: Inactive Member Role Status Dates Chani Khan NP, [employer] Primary Care Provider, Referri ng Provider Active Dr. Neris Ayala MD Attending Provider Active Team Status: Active Member Role Status Dates Chani Khan NP, [employer]C Primary Care Provider Active Dr. Neris Ayala MD Attending Pr ovidmichael, Referring Provider, Other Provider Active Team Status: Active Member Role Status Dates Dr. Stephen Black MD Primary Care Provider Active Dr. Kobi Calles MD Attending Provider Active Team Status: Active Member Role Status Dates Chani Khan NP, [employer] Primary Care Provider Active Health Risk Assessment Attending Provider, Referring P kraig Active Team Status: Inactive Member Role Status Dates Chani Khan NP, [employer] Primary Care Provider Active Nhung Hatch NP-C Attending Provider, Referring Pr ovider Active Team Status: Inactive Member Role Status Dates Chani Bill [employer], [employer] Primary Care Provider Active Dr. Neris Ayala MD Attending Provider, Referr ing Provider Active Team Status: Active Member Role Status Dates Chain Khan NP, [employer]C Primary Care Provider Active Dr. Davon Rae MD Attending Provider Active Dr. Neris Ayala MD Referring Provider Active Team Status: Inactive Member Role Status Dates Dr. Stephen Black MD Referring Provider Active Nhung Hatch NP-C Attending Provider Active Chani Khan [employer], [employer]C Primary Care Provider Active Team Status: Inactive Member Role Status Dates Chani Khan [employer], [employer] Primary Care Provider Active Dr. Arnulfo Mishra MD Attending Provider, Referring Provi brianna Active Team Status: Inactive Member Role Status Dates Chani Khan [employer], [employer] Primary Care Provider, Referri ng Provider Active Dr. Arnulfo Mishra MD Attending Provider Active Team Status: Inactive Member Role Status Dates Chani Khan [employer], [employer] Primary Care Provider Active Start: June 10, 2024 End: June 10, 2024 Chani Khan [employer], [employer] Other Provider Active St art: June 10, 2024 End: June 10, 2024 Dr. Arnulfo Mishra MD Attending Provider Active Sta rt: June 10, 2024 End: June 10, 2024 Dr. Arnulfo Mishra MD Referring Provider Active Sta rt: June 10, 2024 End: June 10, 2024 Team Status: Inactive Member Role Status Dates Chani Khan [employer], [employer]C Primary Care Provider Active Start: June 12, 2024 End: June 12, 2024 Chani Khan [employer], [employer] Referring Provider Active Start: June 12, 2024 End: June 12, 2024 Dr. Arnulfo Mishra MD Attending Provider Active Sta rt: June 12, 2024 End: June 12, 2024 Team Status: Active Member Role/Relationship Status Dates Dr. Stephen Black MD Family Provider Active Chani Khan [employer], [employer] Primary Care Provider Active Team Status: Inactive Member Role/Relationship Status Dates Chani Khan [employer], [employer] Primary Care Provider Active Start: August 25, 2024 Dr. Jacklyn Meza MD Attending Provider Active Start: August 25, 2024 Team Status: Inactive Member Role/Relationship Status Dates Chani Khan NP, LEONEL-C Primary Care Provider Active Start: October 20, 2024 End: October 20, 2024 Chani Khan NP, LEONEL-C Referring Provider Active Start: October 20, 2024 End: October 20, 2024 Chandana GUILLORY, PA Attending Provider Active Start: October 20, 2024 End: October 20, 2024 FOR RECORDS PERTAINING TO PATIENTS WHO ARE OR HAVE BEEN ENROLLED IN A CHEMICAL DEPENDENCY/SUBSTANCEABUSE PROGRAM, SOME INFORMATION MAY BE OMITTED. This clinical summary was aggregated from multiple sources. Caution should be exercised in using it in the provision of clinical care. This summary normalizes information from multiple sources, and as a consequence, information in this document may materially change the coding, format and clinical context of patient data. In addition, data may be omitted in some cases. CLINICAL DECISIONS SHOULD BE BASED ON THE PRIMARY CLINICAL RECORDS. [facility] [employer] [facility]. provides no warranty or guarantee of the accuracy or completeness of information in this document.
--- OUTSIDE RECORDS SUMMARY | 2024-11-20 07:29 | XMS RPT_ITS | CCD ---
Author Organization [facility] Care Team Providers Care Multilith Operator Name Role Phone Chani Mark N Unavailable Elham Markica N Unavailable Chani Mark N Unavailable Yolanda Pena DC Unavailable Deedee Chani N Unavailable Deedee Chani N Unavailable Dr. Stephen Black Primary Care Provider Dr. Stephen Black Referring Provider [phone] ETHAN Hatch Attending Provider [phone] Dr. Neris Ayala Attending Provider [phone] Dr. Stephen Black Primary Care Provider Dr. Stephen Black Referring Provider [phone] Bill CASTANEDA, CONSTRUCTION DRILLER-C Chani Primary Care Provider [phone] Bill CASTANEDA, CONSTRUCTION DRILLER-C Chani Referring Provider [phone] Dr. Neris Ayala Attending Provider [phone] Dr. Neris Ayala Referring Provider [phone] Dr. Neris Ayala Other Provider [phone] Dr. Davon Rae Attending Provider [phone] Bill CASTANEDA, CONSTRUCTION DRILLER-C Chani Primary Care Provider [phone] Bill CASTANEDA, CONSTRUCTION DRILLER-C Chani Referring Provider [phone] Dr. Neris Ayala Attending Provider Dr. Stephen Black Referring Provider [phone] LEONEL Hatch-Salima Hooker Attending Provider Bill CONSTRUCTION DRILLER, CONSTRUCTION DRILLER-C Chani Primary Care Provider [phone] [place] CONSTRUCTION DRILLER, CONSTRUCTION DRILLER-C Chani Referring Provider 1([facility] )[phone] Dr. Arnulfo Mishra Attending Provider 1([facility])[phone] Bill CONSTRUCTION DRILLER-C, Chani Primary Care Provider [phone] Bill CONSTRUCTION DRILLER-C, Chani Other Provider [phone] Arnulfo Mishra MD Attending Provider Dr. Arnulfo Mishra MD Referring Provider Bill CONSTRUCTION DRILLER-C, Chani Referring Provider 1([facility])[phone] [place] CONSTRUCTION DRILLER-C, Chani Primary Care Provider 1([facility] )[phone] Susana MARLEY, Dr. Villasenor Attending Provider [place] CONSTRUCTION DRILLER-C, Chani Referring Provider 1([facility])[phone] Chandana Velásquez Attending Provider Chandana Velásquez Attending Unavailable Bill CONSTRUCTION DRILLER, Chani Referring Unavailable [place] CONSTRUCTION DRILLER, Chani Primary Care Unavailable Bill CONSTRUCTION DRILLER, Chani Referring Unavailable [place] CONSTRUCTION DRILLER, Chani Primary Care Unavailable Robotham, Yamel Attending Unavailable Arnulfo Mishra Attending Unavailable Arnulfo Mishra Referring Unavailable Bill CONSTRUCTION DRILLER, Chani Consulting Unavailable [place] CONSTRUCTION DRILLER, Chani Primary Care Unavailable [place] CONSTRUCTION DRILLER, Chani Primary Care Unavailable Assessment, Health Risk Referring Unavaila ble Assessment, Health Risk Attending Unavaila ble Thais Echeverria Attending Unavailable [place] CONSTRUCTION DRILLER, Chani Referring Unavailable [place] CONSTRUCTION DRILLER, Chani Primary Care Unavailable TadJonii Attending Unavailable [place] CONSTRUCTION DRILLER, Chani Referring Unavailable Bill CONSTRUCTION DRILLER, Chani Primary Care Unavailable Alyson Mishra Attending Unavailable [place] CONSTRUCTION DRILLER, Chani Primary Care Unavailable [place] CONSTRUCTION DRILLER, Chani Referring Unavailable [place] CONSTRUCTION DRILLER, Chani Primary Care Unavailable Robotham, Yamel Consulting Unavailable Robotham, Yamel Attending Unavailable Allergies Allergy Classification Reported Allergen(s) Allergy Type Date of Onset Reaction(s) Facility (6 sources) amoxicillin / clavulanate drug allergy 3 [facility] Work Phone: (12 sources) Amoxicillin Drug Allergy 1 Diarrhea [facility] Comment on above: Blood in stool (12 sources) Clavulanate Drug Allergy 1 Diarrhea [facility] Comment on above: Blood in stool (13 sources) Shellfish; Translations: [shellfish derived] Allergy to substance 1 Angioedema [facility] (1 source) Amoxicillin Drug Allergy 5 [facility] (1 source) Clavulanate Drug Allergy 5 [facility] Medications Current Medications Medication Drug [...] AERO 2 times daily FLUTICASONE PROPIONATE HFA [id number] John Dominguez Fluticasone Propion-Salmeterol (20 sources) Corticosteroid, [...] ATIVAN 1 MG TABS as needed LORAZEPAM [id number] John Dominguez naproxen 500 mg oral tablet [...] 09-03-2016 NAPROXEN 500 M G TABS NAPROXEN [id number] Gabo Pryor ondansetron 4 mg disintegrating oral [...] One tablet by mouth daily LEVOTHYROXINE SODIUM [id number] John Dominguez Tirzepatide (Weight Loss) (1 source) [...] above: emb done. 10cm with 2.6cm fibroid [facility] bs. 4 . Other female genital disorders [...] and uterus] 02-20-2022 Episodic Comment on above: [facility] brittany aub Residual codes; unclassified (3 sources) [...] Reporton 0 10-20-2024 Urgent Care Visit Report [facility] [address], [address] [place] [id number] OFFICE VISIT Date of Service: 10/20/24 MR#: [id number] Acct: [id number] Name: AP ALEXANDER Rep #: [id number] : 1970 Provider: PASTORA Beltran Age/Sex: 54/F Location: [facility] Status: Signed Intake Vital Signs 06/12/24 08:23 [...] 1 - 2 puff inhalation Q4H PRN OK N 04/29/17 10/20/24 History aerosol inhaler Wheezing [...] body aches, sinus pressure, chills. [facility] Medical History (Updated 09/24/24 @ 08:42 by [...] History of hysteroscopy H/O: hysterectomy History of [facility] History of D C S/P laparoscopy [...] Yes additional social history: - Registration at [facility] ER HPI HPI Chief Complaint: Prolactin [...] of breath or dyspnea on exertion. No gzbz-cfc-ypirkin products taken to assist. Several close contacts at work with similar URI complaints. No other associated symptoms and no alleviating/aggrav ating factors. ROS Const Constitutional: No other (as above) Exam Const General: cooperative, healthy appearing and no acute distress Orientation: alert, awake [facility] Head: normal to inspection Ears: hearing grossly normal bilaterally, external ears normal, TM's normal left/ erythematous and bulging right, and EAC's normal Nose: external nose normal, nares normal, septum normal and nasal discharge (more content not included)... Normal [facility] PROLACTIN 4465on 06-13-2024 PROLACTIN 12.4 ng/mL Normal 3.6-25.2 [facility] Comment on above: Result Comment: Perf ormed at: - [facility] [address] [id number] Records Technician: Serge Frost PhD, Phone: [phone] Performed By: #### L 3100.5400, L506.1001, L503.0106 ####[facility] [address] [place], [place], [address] Endocrinology Visit Reporton 06-12-2024 Endocrinology Visit Report [facility] [address] [place], [place] [address] OFFICE VISIT Date of Service: 06/12/24 MR#: [id number] Acct: [id number] Name: AP ALEXANDER Rep #: [id number] : 1970 Provider: Ilya Valderrama Age/Sex: 53/F Location: [facility] Status: Signed Intake Vital Signs 06/14/23 09:30 [...] 1 - 2 puff inhalation Q4H PRN OK N 04/29/17 06/12/24 History aerosol inhaler Wheezing [...] Asthma Shoulder pain Surgical History History of [facility] History of D C S/P laparoscopy [...] Yes additional social history: - Registration at [facility] ER HPI HPI Chief Complaint: Prolactin [...] external n (more content not included)... Normal [facility] Prolactin [Mass/Vol]Ordered By: Thais Echeverria on 06-12-2024 Prolactin 12.4 ng/mL 3.6-25.2 [facility] Comment on above: Performed at: [place] [id number] Director: Serge Frost PhD, Phone: [phone] Anion gap in Serum or Plasma Ordered By: Arnulfo Mishra on 06-10-2024 Anion gap [Moles/Vol] 10 mmol/L 5-15 [facility] BUN/creatinine ratioOrdered By: Arnulfo Mishra on 06-10-2024 Urea nitrogen/Creatinine [Mass ratio] 16.9 mg/mg 10- [facility] Bilirubin, totalOrdered By: Arnulfo Mishra on 06-10-2024 Bilirubin [Mass/Vol] 0.24 mg/dL Normal 0.00-1.30 [facility] Comment on above: Order Comment: REY Leach ADD DR OVIEDO TO THE LABS Performed By: #### L 500.4050, L506.0400, L501.9520 #### [facility] [address] [place], [address] Carbon dioxide, total [Moles /volume] in Central venous bloodOrdered By: Arnulfo Mishra on 06-10-2024 CO2 [Moles/Vol] 25.7 mmol/L Normal 21.0-32.0 [facility] Comment on above: Order Comment: REY Leach ADD DR OVIEDO TO THE LABS Performed By: #### L 500.4050, L506.0400, L501.9520 #### [facility] [address] [place], [address] Chloride assayOrdered By: Oswald Mishra on 06-10-2024 Chloride [Moles/Vol] 107 mmol/L Normal 98-108 [facility] Comment on above: Order Comment: REY Leach ADD DR OVIEDO TO THE LABS Performed By: #### L 500.4050, L506.0400, L501.9520 #### [facility] [address] [place], [address] Comprehensive Metabolic Prof martha 06-10-2024 ALK PHOS 92 U/L Normal 35-104 [facility] Comment on above: Order Comment: REY Leach ADD DR OVIEDO TO THE LABS Performed By: #### L 500.4050, L506.0400, L501.9520 #### [facility] [address] [place], [address] BUN/CRE 16.9 RATIO Normal 10-20 [facility] Comment on above: Order Comment: REY OVIEDO TO THE LABS Performed By: #### L 500.4050, L506.0400, L501.9520 #### [facility] [address] [place], [address] GAP 10 Normal 5-15 [facility] Comment on above: Order Comment: REY Leach ADD DR OVIEDO TO THE LABS Performed By: #### L 500.4050, L506.0400, L501.9520 #### [facility] [address] [place], [address] GFR/1.73 sq M.predicted among non-blacks MDRD (S/P/Bld) [Vol rate/Area] 96 mL/min/{1.73_m2} Normal >60 [facility] Comment on above: Order Comment: REY Leach ADD DR OVIEDO TO THE LABS Result Comment: mL/m in/1.73m2 CKD-EPI Creatinine Equation (2020) Performed By: #### L 500.4050, L506.0400, L501.9520 #### [facility] [address] [place], [address] T PROT 6.9 g/dL Normal 5.9-8.4 [facility] Comment on above: Order Comment: REY Leach ADD DR OVIEDO TO THE LABS Performed By: #### L 500.4050, L506.0400, L501.9520 #### [facility] [address] [place], [address] Comprehensive Metabolic Prof ilOrdered By: Arnulfo Mishra on 06-10-2024 AST [Catalytic activity/Vol] 24 U/L Normal <=31 [facility] Comment on above: Order Comment: REY Leach ADD DR OVIEDO TO THE LABS Performed By: #### L 500.4050, L506.0400, L501.9520 #### [facility] [address] [place], [address] GFR/1.73 sq M.predicted anat g non-blacks MDRD (S/P/Bld) [Vol rate/Area]Ordered By: Arnulfo Mishra on 06-10-2024 Estimated GFR (MDRD) Non-Af Amer 96 >60 [facility] Comment on above: mL/min/1.73m2 CKD-EP I Creatinine Equation (2020) Potassium measurement (mass/ volume)Ordered By: Arnulfo Mishra on 06-10-2024 Potassium [Moles/Vol] 3.4 mmol/L Normal 3.3-5.1 [facility] Comment on above: Order Comment: REY OVIEDO TO THE LABS Performed By: #### L 500.4050, L506.0400, L501.9520 #### [facility] [address] [place], [address] Serum creatinine measurement (mass/volume)Ordered By: Arnulfo Mishra on 06-10-2024 Creatinine [Mass/Vol] 0.74 mg/dL Normal 0.70-1.20 [facility] Comment on above: Order Comment: REY OVIEDO TO THE LABS Performed By: #### L 500.4050, L506.0400, L501.9520 #### [facility] [address] [place], [address] Serum globulin measurementOr dered By: Arnulfo Mishra on 06-10-2024 Globulin (S) [Mass/Vol] 3.0 g/dL Normal 2.2-4.2 [facility] Comment on above: Order Comment: REY OVIEDO TO THE LABS Performed By: #### L 500.4050, L506.0400, L501.9520 #### [facility] [address] [place], [address] Serum glucose measurement (m ass/volume)Ordered By: Arnulfo Mishra on 06-10-2024 Glucose [Mass/Vol] 77 mg/dL Normal 70-99 [facility] Comment on above: Order Comment: REY OVIEDO TO THE LABS Performed By: #### L 500.4050, L506.0400, L501.9520 #### [facility] [address] [place], [address] Serum or plasma alanine esparza otransferase (ALT) measurementOrdered By: Arnulfo Mishra on 06-10-2024 ALT [Catalytic activity/Vol] 32 U/L Normal <=34 [facility] Comment on above: Order Comment: REY OVIEDO TO THE LABS Performed By: #### L 500.4050, L506.0400, L501.9520 #### [facility] [address] [place], [address] Serum or plasma albumin mamie urement (mass/volume)Ordered By: Arnulfo Mishra on 06-10-2024 Albumin [Mass/Vol] 3.9 g/dL Normal 3.5-5.0 [facility] Comment on above: Order Comment: REY OVIEDO TO THE LABS Performed By: #### L 500.4050, L506.0400, L501.9520 #### [facility] [address] [place], [address] Serum or plasma albumin/glob ulin mass ratioOrdered By: Arnulfoarmen Mishra on 06-10-2024 Albumin/Globulin [Mass ratio] 1.3 {ratio} Normal 0.9-2.4 [facility] Comment on above: Order Comment: REY OVIEDO TO THE LABS Performed By: #### L 500.4050, L506.0400, L501.9520 #### [facility] [address] [place], [address] Serum or plasma alkaline alva sphatase measurementOrdered By: Arnulfoarmen Mishra on 06-10-2024 ALP [Catalytic activity/Vol] 92 U/L 35-104 [facility] Serum or plasma calcium mamie urement (mass/volume)Ordered By: Arnulfo Mishra on 06-10-2024 Calcium [Mass/Vol] 9.2 mg/dL Normal 7.6-11.0 [facility] Comment on above: Order Comment: REY OVIEDO TO THE LABS Performed By: #### L 500.4050, L506.0400, L501.9520 #### [facility] [address] [place], [address] Serum or plasma urea nitroge n measurement (mass/volume)Ordered By: Arnulfo Mishra on 06-10-2024 Urea nitrogen [Mass/Vol] 13 mg/dL Normal 4-19 [facility] Comment on above: Order Comment: REY OVIEDO TO THE LABS Performed By: #### L 500.4050, L506.0400, L501.9520 #### [facility] [address] [place], [address] Sodium levelOrdered By: Arnulfo Mishra on 06-10-2024 Sodium [Moles/Vol] 143 mmol/L Normal 133-145 [facility] Comment on above: Order Comment: REY Leach ADD DR OVIEDO TO THE LABS Performed By: #### L 500.4050, L506.0400, L501.9520 #### [facility] [address] [place], [address] T4 Free Directon 06-10-2024 T4 FREE DIRECT 1.20 ng/dL Normal 0.76-1.46 [facility] Comment on above: Order Comment: REY Leach ADD DR OVIEDO TO THE LABS Performed By: #### L 500.4050, L506.0400, L501.9520 #### [facility] [address] [place], [address] T4 freeOrdered By: Arnulfo Mishra on 06-10-2024 Free T4 [Mass/Vol] 1.20 ng/dL 0.76-1.46 [facility] TSH DL <= 0.005 mIU/L QnOrde red By: Arnulfo Mishra on 06-10-2024 Thyroid Stimulating Hormone (TSH) 0.243 uIU/mL Low 0.300-4.200 [facility] Thyroid Stim Hormone (TSH)on 06-10-2024 TSH 0.243 uIU/mL Low 0.300-4.200 [facility] Comment on above: Order Comment: REY Leach ADD DR OVIEDO TO THE LABS Performed By: #### L 500.4050, L506.0400, L501.9520 #### [facility] [address] [place], [address] Total proteinOrdered By: Joni Mishra on 06-10-2024 Protein [Mass/Vol] 6.9 g/dL 5.9-8.4 [facility] Vitamin B12on 06-10-2024 Cobalamin (Vitamin B12) [Mass/Vol] 245 pg/mL Normal 180-914 [facility] Comment on above: Performed By: #### L 3100.5400, L506.1001, L503.0106 #### [facility] [address] [place], [address] Vitamin B12 ser/plasOrdered By: Thais Echeverria on 06-10-2024 Cobalamin (Vitamin B12) [Mass/Vol] 245 pg/mL 180-914 [facility] Vitamin D, 25-hydroxyOrdered By: Thais Echeverria on 06-10-2024 Vitamin D 25-Hydroxy 8.0 ng/mL Low 30-100 [facility] Comment on above: Vitamin D StatusDefi ciency: <20 ng/mL (50nmol/L)Insufficiency: 20-30 ng/mL (50-75 nmol/L)Sufficiency: 30-100 ng/mL (75-250 nmol/L)Toxicity: >100 ng/mL (>250 nmol/L) Vitamin D,25 Hydroxyon 06-10 Vitamin D 25-OH 8.0 ng/mL Low 30-100 [facility] Comment on above: Result Comment: Lis min D Status Deficiency: <20 ng/mL (50nmol/L) Insufficiency: 20-30 ng/mL (50-75 nmol/L) Sufficiency: 30-100 ng/mL (75-250 nmol/L) Toxicity: >100 ng/mL (>250 nmol/L) Performed By: #### L 3100.5400, L506.1001, L503.0106 #### [facility] [address] [place], [address] Colonoscopy Reporton Colonoscopy Report [facility] Medical Records Department [address] [place] [place] [address] Colonoscopy Report MR#: [id number] Acct: [id number] Name: AP ALEXANDER Rep #: [id number] : 1970 53 From: Yamel Gallo MD PCP: ETHAN Harrison Status:REG [facility] Patient Name: Ap Alexander Procedure Date: 02/05/2024 [...] pathology results. Procedure Code(s): --- Professional --- 19284, PT, Colonoscopy, flexible; with biopsy, single or multiple Diagnosis Code(s): --- Professional --- Z12.11, Encounter for screening for malignant neoplasm of colon D12.5, Benign neoplasm of sigmoid colon D12.4, Benign neoplasm of descending colon D12.2, Benign neoplasm of ascending colon CPT copyright 2021 [employer]. All rights reserved. The codes documented in this report are preliminary and upon medical biller coder review may be revised to meet current compliance requirements. MD Yamel Martinez MD 02/05/2024 11:44:16 AM This report has been signed electronically. Number of Addenda: 0 Note Initiated On: 02/05/2024 11:03 AM 02/05/24 1144 Date Yamel Mayer Signature: Date (if indicated) CC: CONSTRUCTION DRILLER-C Chani Khan; Dr. Yamel Gallo MD Date Dictated: 02/05/24 1103 Date Transcribed: Engineering Document Control Clerk: TR Signed [facility] MR/POSTOP.Jose 02-05-2024 MR/POSTOP.[facility] Medical Records Department [address] [place] [address] Anesthesia Postop Eval I 02/05/24 1148 MR#: [id number] Acct: [id number] Name: AP ALEXANDER Rep #: [id number] : 1970 53 From: Cash Paz PCP: JOVANNA HarrisonC Status:REG SDC Y Race: C Location: [place] [address] Anesthesia: Postop Eval I Current Vital Signs [...] Cash Mayer Signature: Date CC: Signed Normal [facility] MR/BONCGMST6el 02-05-2024 /[facility] Medical Records Department [address] [place] [address] Anesthesia Postop Eval II 02/05/24 1339 MR#: [id number] Acct: [id number] Name: AP ALEXANDER Rep #: [id number] : 1970 53 From: Aj Barkley MD PCP: ETHAN Harrison Status:[facility] Y Race: C Location: EN Anesthesia Postop [...] Level: 0 nausea: No Vomiting: No 02/05/24 5689 Date Aj Mayer Signature: Date CC: Signed Normal [facility] Surgery Specimen Level Davonte 02-05-2024 Surgery Specimen Level IV -- Patient Age/Sex Location Account Attending Physician -- AP ALEXANDER 53/F EN [id number] Dr. Yamel Gallo MD -- Specimen: [id number] Received: 02/05/24 Status: ZOE Dean Num: [id number] Spec Type: COLON BX Subm Dr: Dr. [...] submitted in one cassette. SJ. 02/05/2024 TC:5 CPT:16706f9 -- Patient Age/Sex Location Account Attending Physician -- AP ALEXANDER 53/F EN [id number] Dr. Yamel Gallo MD -- Signed (signatu re on file) Dr. Pravin Brooke DO 02/06/24 1244 -- Normal [facility] Comment on above: Performed By: #### P SUIV ####[facility] [address] [place], [address] Continuous Improvement [place] Office Visit Reporton 12-19-2023 Continuous Improvement [place] Office Visit Report [facility] [address], [address] [place] [address] OFFICE VISIT Date of Service: 12/19/23 MR#: [id number] Acct: [id number] Name: AP ALEXANDER Rep #: [id number] : 1970 Provider: ETHAN Schroeder Age/Sex: 53/F Location[place] [facility] Status: Signed Intake Vital Signs 06/14/23 09:30 [...] WM? (see convo) Chief Complaint: menopause concerns Kinesiology Professor Required: No Is patient in pain?: Yes [...] Patient : No : No Control Method: [facility] Medical History (Updated 12/19/23 @ 12:40 by [...] Yes additional social history: - Registration at [facility] ER HPI Menopause concerns/ poss. WM? [...] comfortable, no (more content not included)... Normal [facility] CBC, Employeeon 11-29-2023 Absolute Lymph 2.52 X10 3/uL Normal 0.83-4.51 [facility] Comment on above: Performed By: #### L 500.2900, L100.0200 #### [facility] [address] [place], [address] Absolute Neut 2.7 X10 3/uL Normal 2.0-7.7 [facility] Comment on above: Performed By: #### L 500.2900, L100.0200 #### [facility] [address] [place], [address] Basophils/100 WBC (Bld) 0.4 % Normal 0-1 [facility] Comment on above: Performed By: #### L 500.2900, L100.0200 #### [facility] [address] [place], [address] Eosinophils/100 WBC (Bld) 3.0 % Normal 0-5 [facility] Comment on above: Performed By: #### L 500.2900, L100.0200 #### [facility] [address] [place], [address] Erythrocyte distribution width (RBC) [Ratio] 12.4 % Normal 11.6-14.6 [facility] Comment on above: Performed By: #### L 500.2900, L100.0200 #### [facility] [address] [place], [address] Hematocrit (Bld) [Volume fraction] 42.0 % Normal 37-47 [facility] Comment on above: Performed By: #### L 500.2900, L100.0200 #### [facility] [address] [place], [address] Hemoglobin (Bld) [Mass/Vol] 13.2 g/dL Normal 12.0-15.0 [facility] Comment on above: Performed By: #### L 500.2900, L100.0200 #### [facility] [address] [place], [address] Lymphocytes/100 WBC (Bld) 44.2 % High 19-41 [facility] Comment on above: Performed By: #### L 500.2900, L100.0200 #### [facility] [address] [place], [address] MCH (RBC) [Entitic mass] 29.7 pg Normal 27.0-32.0 [facility] Comment on above: Performed By: #### L 500.2900, L100.0200 #### [facility] [address] [place], [address] MCHC (RBC) [Mass/Vol] 31.4 g/dL Low 32-36 [facility] Comment on above: Performed By: #### L 500.2900, L100.0200 #### [facility] [address] [place], [address] MCV (RBC) [Entitic vol] 94.4 fL Normal 81-99 [facility] Comment on above: Performed By: #### L 500.2900, L100.0200 #### [facility] [address] [place], [address] Monocytes/100 WBC (Bld) 5.6 % Normal 0-10 [facility] Comment on above: Performed By: #### L 500.2900, L100.0200 #### [facility] [address] [place], [address] Neutrophils/100 WBC (Bld) 46.6 % Low 47-70 [facility] Comment on above: Performed By: #### L 500.2900, L100.0200 #### [facility] [address] [place], [address] NRBC # 0.00 10 3/uL Normal 0-5 [facility] Comment on above: Performed By: #### L 500.2900, L100.0200 #### [facility] [address] [place], [address] Nucleated RBC (Bld) [#/Vol] 0 10*3/uL Normal 0-5 [facility] Comment on above: Performed By: #### L 500.2900, L100.0200 #### [facility] [address] [place], [address] Platelet mean volume (Bld) [Entitic vol] 9.5 fL Normal 6.2-12.0 [facility] Comment on above: Performed By: #### L 500.2900, L100.0200 #### [facility] [address] [place], [address] Platelets (Bld) [#/Vol] 269 10*3/uL Normal 150-450 [facility] Comment on above: Performed By: #### L 500.2900, L100.0200 #### [facility] [address] [place], [address] RBC (Bld) [#/Vol] 4.45 10*6/uL Normal 4.2-5.4 [facility] Comment on above: Performed By: #### L 500.2900, L100.0200 #### [facility] [address] [place], [address] RDW SD 42.9 fl Normal 35.1-43.9 [facility] Comment on above: Performed By: #### L 500.2900, L100.0200 #### [facility] [address] [place], [address] WBC (Bld) [#/Vol] 5.7 10*3/uL Normal 4.4-11.0 [facility] Comment on above: Performed By: #### L 500.2900, L100.0200 #### [facility] [address] [place], [address] [employer] 4 Albumin [Mass/Vol] 3.6 g/dL Normal 3.2-5.0 [facility] Comment on above: Performed By: #### L 500.2900, L100.0200 #### [facility] [address] [place], [address] Albumin/Globulin [Mass ratio] 0.9 {ratio} Normal 0.9-2.4 [facility] Comment on above: Performed By: #### L 500.2900, L100.0200 #### [facility] [address] [place], [address] ALK P 97 U/L Normal 45-117 [facility] Comment on above: Performed By: #### L 500.2900, L100.0200 #### [facility] [address] [place], [address] ALT [Catalytic activity/Vol] 40 U/L Normal 13-56 [facility] Comment on above: Performed By: #### L 500.2900, L100.0200 #### [facility] [address] [place], [address] AST [Catalytic activity/Vol] 23 U/L Normal 15-37 [facility] Comment on above: Performed By: #### L 500.2900, L100.0200 #### [facility] [address] [place], [address] Bilirubin [Mass/Vol] 0.40 mg/dL Normal 0.20-1.00 [facility] Comment on above: Result Comment: For patients on eltrombopag therapy, use of Dimension [place] TBIL is not recommended. Performed By: #### L 500.2900, L100.0200 #### [facility] [address] [place], [address] Bilirubin.direct [Mass/Vol] 0.10 mg/dL Normal 0.00-0.30 [facility] Comment on above: Performed By: #### L 500.2900, L100.0200 #### [facility] [address] [place], [address] BUN/CRE 11.3 RATIO Normal 10-20 [facility] Comment on above: Performed By: #### L 500.2900, L100.0200 #### [facility] [address] [place], [address] CA,Total 9.6 mg/dL Normal 8.5-10.1 [facility] Comment on above: Performed By: #### L 500.2900, L100.0200 #### [facility] [address] [place], [address] Chloride [Moles/Vol] 109 mmol/L High 98-107 [facility] Comment on above: Performed By: #### L 500.2900, L100.0200 #### [facility] [address] [place], [address] CHOL:HDL 3.00 Normal [facility] Comment on above: Performed By: #### L 500.2900, L100.0200 #### [facility] [address] [place], [address] Cholesterol [Mass/Vol] 164 mg/dL Normal 200 [facility] Comment on above: Result Comment: <200 mg/dL Desirable 200-240 mg/dL Borderline >240 mg/dL High Risk Performed By: #### L 500.2900, L100.0200 #### [facility] [address] [place], [address] Cholesterol in HDL [Mass/Vol] 54 mg/dL Normal [facility] Comment on above: Result Comment: The drugs N-Acetylcysteine and Metamizole may falsely depress this assay. Reference Range HDL <40 mg/dL Low HDL Cholesterol HDL >or= 60 mg/dL High HDL Cholesterol Performed By: #### L 500.2900, L100.0200 #### [facility] [address] [place], [address] Cholesterol in LDL [Mass/Vol] 88 mg/dL Normal 0-130 [facility] Comment on above: Performed By: #### L 500.2900, L100.0200 #### [facility] [address] [place], [address] Cholesterol in VLDL [Mass/Vol] 22 mg/dL Normal 5-40 [facility] Comment on above: Performed By: #### L 500.2900, L100.0200 #### [facility] [address] [place], [address] CO2 [Moles/Vol] 28.0 mmol/L Normal 21.0-32.0 [facility] Comment on above: Performed By: #### L 500.2900, L100.0200 #### [facility] [address] [place], [address] Creatinine [Mass/Vol] 0.79 mg/dL Normal 0.55-1.02 [facility] Comment on above: Result Comment: The validity of the calculated GFR GFRAA in patients over 70 years has not been determined. Clinical correlation is essential. Performed By: #### L 500.2900, L100.0200 #### [facility] [address] [place], [address] EST GFR - AA 97 mL/min Normal >60 [facility] Comment on above: Result Comment: Afri can Chinese GFR Calc Performed By: #### L 500.2900, L100.0200 #### [facility] [address] [place], [address] GAP 5 Normal 5-15 [facility] Comment on above: Performed By: #### L 500.2900, L100.0200 #### [facility] [address] [place], [address] GFR/1.73 sq M.predicted among non-blacks MDRD (S/P/Bld) [Vol rate/Area] 80 mL/min/{1.73_m2} Normal >60 [facility] Comment on above: Result Comment: Non- GFR Calc Performed By: #### L 500.2900, L100.0200 #### [facility] [address] [place], [address] Globulin (S) [Mass/Vol] 3.8 g/dL Normal 2.2-4.2 [facility] Comment on above: Performed By: #### L 500.2900, L100.0200 #### [facility] [address] [place], [address] Glucose [Mass/Vol] 95 mg/dL Normal 74-106 [facility] Comment on above: Performed By: #### L 500.2900, L100.0200 #### [facility] [address] [place], [address] LDH 187 U/L Normal 84-246 [facility] Comment on above: Performed By: #### L 500.2900, L100.0200 #### [facility] [address] [place], [address] Phosphate [Mass/Vol] 3.6 mg/dL Normal 2.5-4.9 [facility] Comment on above: Performed By: #### L 500.2900, L100.0200 #### [facility] [address] [place], [address] Potassium [Moles/Vol] 3.3 mmol/L Low 3.5-5.1 [facility] Comment on above: Performed By: #### L 500.2900, L100.0200 #### [facility] [address] [place], [address] Sodium [Moles/Vol] 143 mmol/L Normal 136-145 [facility] Comment on above: Performed By: #### L 500.2900, L100.0200 #### [facility] [address] [place], [address] T PROT 7.4 g/dL Normal 6.4-8.2 [facility] Comment on above: Performed By: #### L 500.2900, L100.0200 #### [facility] [address] [place], [address] Triglyceride [Mass/Vol] 112 mg/dL Normal [facility] Comment on above: Result Comment: The drugs N-Acetylcysteine and Metamizole may falsely depress this assay. Serum Triglycerides Reference Interval Normal <150 mg/dL Borderline high 150 - 199 mg/dL High 200 - 499 mg/dL Very High > or = 500 mg/dL Performed By: #### L 500.2900, L100.0200 #### [facility] [address] [place], [address] Urea nitrogen [Mass/Vol] 9 mg/dL Normal 7-18 [facility] Comment on above: Performed By: #### L 500.2900, L100.0200 #### [facility] [address] [place], [address] URIC 5.5 mg/dL Normal 2.6-6.0 [facility] Comment on above: Result Comment: The drugs N-Acetylcysteine and Metamizole may falsely depress this assay. Performed By: #### L 500.2900, L100.0200 #### [facility] [address] [place], [address] Basophil percentageOrdered B y: Arnulfo Mishra on 06-13-2023 Bilirubin [Mass/Vol] 0.30 mg/dL 0.20-1.00 [facility] Comment on above: For patients on eltr ombopag therapy, use of Dimension [place] TBIL is not recommended. Chloride [Moles/Vol] 113 mmol/L 98-107 [facility] Glucose [Mass/Vol] 111 mg/dL 74-106 [facility] Comment on above: Fasting Glucose resu lt from 100 to 125 mg/dL suggests IMPAIRED HOMEOSTASIS per A.D.A. criteria. Potassium [Moles/Vol] 3.7 mmol/L 3.5-5.1 [facility] Protein [Mass/Vol] 6.8 g/dL 6.4-8.2 [facility] Sodium [Moles/Vol] 144 mmol/L 136-145 [facility] - Chemistry and C hemistry - challengeOrdered By: Arnulfo Mishra on 06-13-2023 Albumin/Globulin [Mass ratio] 1.0 {ratio} 0.9-2.4 [facility] ALP [Catalytic activity/Vol] 90 U/L 45-117 [facility] ALT [Catalytic activity/Vol] 34 U/L 13-56 [facility] CO2 [Moles/Vol] 25.0 mmol/L 21.0-32.0 [facility] Globulin (S) [Mass/Vol] 3.4 g/dL 2.2-4.2 [facility] Urea nitrogen/Creatinine [Mass ratio] 12.4 mg/mg 10-20 [facility] No Panel InformationOrdered By: Arnulfo Mishra on 06-13-2023 Estimated GFR (MDRD) Amer 107 mL/min >60 [facility] Comment on above: GFR Calc Estimated GFR (MDRD) Non-Af Amer 89 mL/min >60 [facility] Comment on above: Non- GFR Calc Prolactin 6.6 ng/mL [facility] Comment on above: NORMAL REFERENCE RAN GES FEMALE NON- 2.2 - 30.3 ng/mL 8.1 - 347.6 ng/mL POST-MENOPAUSAL 0.7 - 31.5 ng/mL MALE 2.5 - 17.4 ng/mL Serum or plasma calcium mamie urement (mass/volume)Ordered By: Arnulfo Mishra on 06-13-2023 Calcium [Mass/Vol] 8.7 mg/dL 8.5-10.1 [facility] Serum or plasma creatinine m easurement (mass/volume)Ordered By: Arnulfo Mishra on 06-13-2023 Creatinine [Mass/Vol] 0.72 mg/dL 0.55-1.02 [facility] Comment on above: The validity of the calculated GFR & GFRAA in patients over 70 years has not been determined. Clinical correlation is essential. Serum or plasma thyroid stim ulating hormone (TSH) measurement (units/volume)Ordered By: Arnulfo Mishra on 06-13-2023 TSH Qn 0.05 uIU/mL 0.358-3.74 [facility] Serum or plasma urea nitroge n measurement (mass/volume)Ordered By: Arnulfo Mishra on 06-13-2023 Urea nitrogen [Mass/Vol] 9 mg/dL 7-18 [facility] Thin prep Papanicolaou smear with manual screeningOrdered By: Arnulfo Mishra on 06-13-2023 Thin prep Papanicolaou smear with manual screening 3.4 g/dL 3.2-5.0 [facility] Thin prep Papanicolaou smear with manual screening 20 U/L 15-37 [facility] Thin prep Papanicolaou smear with manual screening 6 5-15 [facility] Thin prep Papanicolaou smear with manual screening 1.18 ng/dL 0.76-1.46 [facility] - Chemistry and C hemistry - challengeOrdered By: Dr. Mishra on 07-05-2022 Free T4 [Mass/Vol] 0.59 ng/dL 0.76-1.46 [facility] No Panel InformationOrdered By: Dr. Mishra on 07-05-2022 Thyroid Stimulating Hormone (TSH) 2.07 uIU/mL 0.358-3.74 [facility] Serum or plasma prolactin me asurement (mass/volume)Ordered By: Dr. Mishra on 07-05-2022 Prolactin [Mass/Vol] 92.9 ng/mL [facility] Comment on above: NORMAL REFERENCE RAN GES FEMALE NON- 2.2 - 30.3 ng/mL 8.1 - 347.6 ng/mL POST-MENOPAUSAL 0.7 - 31.5 ng/mL MALE 2.5 - 17.4 ng/mL Culture, urineOrdered By: Dr Courtney Ayala on 03-21-2022 Bacteria identified Cx Nom (U) Mixed Gram Pos & Gram Neg Org [facility] Absolute lymphocyte countOrd ered By: Dr. Ayala on 03-19-2022 Lymphocytes Auto (Unsp spec) [#/Vol] 2.40 10*3/uL 0.83-4.51 [facility] Basophil percentageOrdered B y: Dr. Ayala on 03-19-2022 Basophils/100 WBC (Bld) 0.7 % 0-1 [facility] Bilirubin [Mass/Vol] 0.20 mg/dL 0.20-1.00 [facility] Comment on above: For patients on eltr ombopag therapy, use of Dimension [place] TBIL is not recommended. Chloride [Moles/Vol] 108 mmol/L 98-107 [facility] Eosinophils/100 WBC (Bld) 10.2 % 0-5 [facility] Glucose [Mass/Vol] 98 mg/dL 74-106 [facility] Neutrophils (Bld) [#/Vol] 3.9 10*3/uL 2.0-7.7 [facility] Neutrophils/100 WBC (Bld) 51.5 % 47-70 [facility] Potassium [Moles/Vol] 3.7 mmol/L 3.5-5.1 [facility] Protein [Mass/Vol] 7.5 g/dL 6.4-8.2 [facility] Sodium [Moles/Vol] 141 mmol/L 136-145 [facility] WBC (Bld) [#/Vol] 7.5 10*3/uL 4.4-11.0 [facility] Blood erythrocytes count (nu mber/volume)Ordered By: Dr. Ayala on 03-19-2022 RBC (Bld) [#/Vol] 4.37 10*6/uL 4.2-5.4 [facility] Blood hemoglobin measurement (mass/volume)Ordered By: Dr. Ayala on 03-19-2022 Hemoglobin (Bld) [Mass/Vol] 12.9 g/dL 12.0-15.0 [facility] Blood lymphocytes/100 leukoc ytesOrdered By: Dr. Ayala on 03-19-2022 Lymphocytes/100 WBC (Bld) 31.9 % 19-41 [facility] Blood monocytes/100 leukocyt esOrdered By: Dr. Ayala on 03-19-2022 Monocytes/100 WBC (Bld) 5.6 % 0-10 [facility] Blood platelet mean volumeOr dered By: Dr. Ayala on 03-19-2022 Platelet mean volume (Bld) [Entitic vol] 9.4 fL 6.2-12.0 [facility] Determination of erythrocyte mean corpuscular volume (MCV)Ordered By: Dr. Ayala on 03-19-2022 MCV (RBC) [Entitic vol] 93.1 fL 81-99 [facility] Hematocrit Auto (Bld) [Volum e fraction]Ordered By: Dr. Ayala on 03-19-2022 Hematocrit (Bld) [Volume fraction] 40.7 % 37-47 [facility] - Chemistry and C hemistry - challengeOrdered By: Dr. Ayala on 03-19-2022 ALP [Catalytic activity/Vol] 88 U/L 45-117 [facility] ALT [Catalytic activity/Vol] 34 U/L 13-56 [facility] CO2 [Moles/Vol] 26.0 mmol/L 21.0-32.0 [facility] Globulin (S) [Mass/Vol] 4.1 g/dL 2.2-4.2 [facility] Urea nitrogen/Creatinine [Mass ratio] 16.9 mg/mg 10-20 [facility] - Hematology and Cell countsOrdered By: Dr. Ayala on 03-19-2022 Erythrocyte distribution width (RBC) [Entitic vol] 45.7 fL 35.1-43.9 [facility] Erythrocyte distribution width (RBC) [Ratio] 13.3 % 11.6-14.6 [facility] Immature granulocytes/100 WBC (Bld) 0.100 % 0.0-0.9 [facility] Comment on above: IG% - Immature Granu locytes (promyelocytes, myelocytes and metamyelocytes) > 1% indicates that a LEFT SHIFT is Present. MCH (RBC) [Entitic mass] 29.5 pg 27.0-32.0 [facility] Nucleated RBC/100 WBC (Bld) [Ratio] 0 % 0-5 [facility] MCHC Auto (RBC) [Mass/Vol]Or dered By: Dr. Ayala on 03-19-2022 MCHC (RBC) [Mass/Vol] 31.7 g/dL 32-36 [facility] No Panel InformationOrdered By: Dr. Ayala on 03-19-2022 Estimated GFR (MDRD) Amer 101 mL/min >60 [facility] Comment on above: GFR Calc Estimated GFR (MDRD) Non-Af Amer 83 mL/min >60 [facility] Comment on above: Non- GFR Calc Platelets bldOrdered By: Dr. Ayala on 03-19-2022 Platelets (Bld) [#/Vol] 373 10*3/uL 150-450 [facility] Serum or plasma albumin mamie urement (mass/volume)Ordered By: Dr. Ayala on 03-19-2022 Albumin [Mass/Vol] 3.4 g/dL 3.2-5.0 [facility] Serum or plasma albumin/glob ulin mass ratioOrdered By: Dr. Ayala on 03-19-2022 Albumin/Globulin [Mass ratio] 0.8 {ratio} 0.9-2.4 [facility] Serum or plasma calcium mamie urement (mass/volume)Ordered By: Dr. Ayala on 03-19-2022 Calcium [Mass/Vol] 9.2 mg/dL 8.5-10.1 [facility] Serum or plasma creatinine m easurement (mass/volume)Ordered By: Dr. Ayala on 03-19-2022 Creatinine [Mass/Vol] 0.77 mg/dL 0.55-1.02 [facility] Comment on above: The validity of the calculated GFR & GFRAA in patients over 70 years has not been determined. Clinical correlation is essential. Serum or plasma urea nitroge n measurement (mass/volume)Ordered By: Dr. Ayala on 03-19-2022 Urea nitrogen [Mass/Vol] 13 mg/dL 7-18 [facility] Thin prep Papanicolaou smear with manual screeningOrdered By: Dr. Ayala on 03-19-2022 Thin prep Papanicolaou smear with manual screening 20 U/L 15-37 [facility] Thin prep Papanicolaou smear with manual screening 7 5-15 [facility] Culture, urineOrdered By: Dr Courtney Ayala on 03-05-2022 Bacteria identified Cx Nom (U) ESBL Escherichia coli [facility] Bacteria identified Cx Nom (U) Streptococcus agalactiae (B) [facility] Absolute lymphocyte countOrd ered By: Dr. Ayala on 03-02-2022 Lymphocytes Auto (Unsp spec) [#/Vol] 2.12 10*3/uL 0.83-4.51 [facility] Basophil percentageOrdered B y: Dr. Ayala on 03-02-2022 Basophils/100 WBC (Bld) 0.2 % 0-1 [facility] Chloride [Moles/Vol] 109 mmol/L 98-107 [facility] Eosinophils/100 WBC (Bld) 4.0 % 0-5 [facility] Glucose [Mass/Vol] 98 mg/dL 74-106 [facility] Neutrophils (Bld) [#/Vol] 11.2 10*3/uL 2.0-7.7 [facility] Neutrophils/100 WBC (Bld) 75.0 % 47-70 [facility] Potassium [Moles/Vol] 3.5 mmol/L 3.5-5.1 [facility] Sodium [Moles/Vol] 143 mmol/L 136-145 [facility] WBC (Bld) [#/Vol] 15.0 10*3/uL 4.4-11.0 [facility] Blood erythrocytes count (nu mber/volume)Ordered By: Dr. Ayala on 03-02-2022 RBC (Bld) [#/Vol] 4.07 10*6/uL 4.2-5.4 [facility] Blood hemoglobin measurement (mass/volume)Ordered By: Dr. Ayala on 03-02-2022 Hemoglobin (Bld) [Mass/Vol] 12.0 g/dL 12.0-15.0 [facility] Blood lymphocytes/100 leukoc ytesOrdered By: Dr. Ayala on 03-02-2022 Lymphocytes/100 WBC (Bld) 14.1 % 19-41 [facility] Blood monocytes/100 leukocyt esOrdered By: Dr. Ayala on 03-02-2022 Monocytes/100 WBC (Bld) 5.9 % 0-10 [facility] Blood platelet mean volumeOr dered By: Dr. Ayala on 03-02-2022 Platelet mean volume (Bld) [Entitic vol] 9.6 fL 6.2-12.0 [facility] Determination of erythrocyte mean corpuscular volume (MCV)Ordered By: Dr. Ayala on 03-02-2022 MCV (RBC) [Entitic vol] 94.3 fL 81-99 [facility] Hematocrit Auto (Bld) [Volum e fraction]Ordered By: Dr. Ayala on 03-02-2022 Hematocrit (Bld) [Volume fraction] 38.4 % 37-47 [facility] - Chemistry and C hemistry - challengeon 03-02-2022 Bilirubin Ql (U) Negative [facility] Glucose Ql (U) Negative [facility] Ketones Ql (U) Negative [facility] pH (U) 5.0 [pH] [facility] Specific gravity (U) [Rel density] 1.030 [facility] Urobilinogen (U) [Mass/Vol] Negative [facility] - Chemistry and C hemistry - challengeOrdered By: Dr. Ayala on 03-02-2022 CO2 [Moles/Vol] 24.0 mmol/L 21.0-32.0 [facility] Urea nitrogen/Creatinine [Mass ratio] 16.0 mg/mg 10-20 [facility] - Hematology and Cell countson 03-02-2022 Hemoglobin Ql (U) Large [facility] - Hematology and Cell countsOrdered By: Dr. Ayala on 03-02-2022 Erythrocyte distribution width (RBC) [Entitic vol] 45.0 fL 35.1-43.9 [facility] Erythrocyte distribution width (RBC) [Ratio] 13.0 % 11.6-14.6 [facility] Immature granulocytes/100 WBC (Bld) 0.800 % 0.0-0.9 [facility] Comment on above: IG% - Immature Granu locytes (promyelocytes, myelocytes and metamyelocytes) > 1% indicates that a LEFT SHIFT is Present. MCH (RBC) [Entitic mass] 29.5 pg 27.0-32.0 [facility] Nucleated RBC/100 WBC (Bld) [Ratio] 0 % 0-5 [facility] - Specimen inform ationon 03-02-2022 Clarity (U) Clear [facility] Color (U) DARK YELLOW [facility] - Urinalysison Nitrite Ql (U) Negative [facility] Protein Ql (U) Negative [facility] MCHC Auto (RBC) [Mass/Vol]Or dered By: Dr. Ayala on 03-02-2022 MCHC (RBC) [Mass/Vol] 31.3 g/dL 32-36 [facility] No Panel Informationon 03-02 Urine Leukocytes Positive [facility] Urine Non-Hemolyzed Blood [facility] No Panel InformationOrdered By: Dr. Ayala on 03-02-2022 Estimated GFR (MDRD) Amer 115 mL/min >60 [facility] Comment on above: GFR Calc Estimated GFR (MDRD) Non-Af Amer 95 mL/min >60 [facility] Comment on above: Non- GFR Calc Platelets bldOrdered By: Dr. Ayala on 03-02-2022 Platelets (Bld) [#/Vol] 497 10*3/uL 150-450 [facility] Serum or plasma calcium mamie urement (mass/volume)Ordered By: Dr. Ayala on 03-02-2022 Calcium [Mass/Vol] 9.1 mg/dL 8.5-10.1 [facility] Serum or plasma creatinine m easurement (mass/volume)Ordered By: Dr. Ayala on 03-02-2022 Creatinine [Mass/Vol] 0.69 mg/dL 0.55-1.02 [facility] Comment on above: The validity of the calculated GFR & GFRAA in patients over 70 years has not been determined. Clinical correlation is essential. Serum or plasma urea nitroge n measurement (mass/volume)Ordered By: Dr. Ayala on 03-02-2022 Urea nitrogen [Mass/Vol] 11 mg/dL 7-18 [facility] Thin prep Papanicolaou smear with manual screeningOrdered By: Dr. Ayala on 03-02-2022 Thin prep Papanicolaou smear with manual screening 10 5-15 [facility] Basophil percentageOrdered B y: Dr. Ayala on 02-20-2022 WBC (Bld) [#/Vol] 11.6 10*3/uL 4.4-11.0 [facility] Blood erythrocytes count (nu mber/volume)Ordered By: Dr. Ayala on 02-20-2022 RBC (Bld) [#/Vol] 4.62 10*6/uL 4.2-5.4 [facility] Blood hemoglobin measurement (mass/volume)Ordered By: Dr. Ayala on 02-20-2022 Hemoglobin (Bld) [Mass/Vol] 13.4 g/dL 12.0-15.0 [facility] Blood platelet mean volumeOr dered By: Dr. Ayala on 02-20-2022 Platelet mean volume (Bld) [Entitic vol] 9.0 fL 6.2-12.0 [facility] Determination of erythrocyte mean corpuscular volume (MCV)Ordered By: Dr. Ayala on 02-20-2022 MCV (RBC) [Entitic vol] 94.8 fL 81-99 [facility] Glucose Glucometer (dC) [M ass/Vol]Ordered By: Dr. Ayala on 02-20-2022 Glucose [Mass/Vol] 83 mg/dL 74-106 [facility] Comment on above: MANAGEMENT OF PATIEN T CARE PER NURSING PROTOCOL Hematocrit Auto (Bld) [Volum e fraction]Ordered By: Dr. Ayala on 02-20-2022 Hematocrit (Bld) [Volume fraction] 43.8 % 37-47 [facility] - Hematology and Cell countsOrdered By: Dr. Ayala on 02-20-2022 Erythrocyte distribution width (RBC) [Entitic vol] 45.1 fL 35.1-43.9 [facility] Erythrocyte distribution width (RBC) [Ratio] 12.9 % 11.6-14.6 [facility] MCH (RBC) [Entitic mass] 29.0 pg 27.0-32.0 [facility] MCHC Auto (RBC) [Mass/Vol]Or dered By: Dr. Ayala on 02-20-2022 MCHC (RBC) [Mass/Vol] 30.6 g/dL 32-36 [facility] Platelets bldOrdered By: Dr. Ayala on 02-20-2022 Platelets (Bld) [#/Vol] 325 10*3/uL 150-450 [facility] Absolute lymphocyte countOrd ered By: Dr. Ayala on 02-13-2022 Lymphocytes Auto (Unsp spec) [#/Vol] 2.67 10*3/uL 0.83-4.51 [facility] Basophil percentageOrdered B y: Dr. Ayala on 02-13-2022 Basophils/100 WBC (Bld) 0.5 % 0-1 [facility] Eosinophils/100 WBC (Bld) 4.5 % 0-5 [facility] Neutrophils (Bld) [#/Vol] 4.4 10*3/uL 2.0-7.7 [facility] Neutrophils/100 WBC (Bld) 54.7 % 47-70 [facility] Blood lymphocytes/100 leukoc ytesOrdered By: Dr. Ayala on 02-13-2022 Lymphocytes/100 WBC (Bld) 33.3 % 19-41 [facility] Blood monocytes/100 leukocyt esOrdered By: Dr. Ayala on 02-13-2022 Monocytes/100 WBC (Bld) 6.6 % 0-10 [facility] - Chemistry and C hemistry - challengeOrdered By: Dr. Ayala on 02-13-2022 HCG ( test) Ql (U) Negative [facility] Comment on above: Very dilute urine sp ecimens, as indicated by a low specificgravity, may not contain patient registration representative levels of hCG. If is still suspected, a first morning urinespecimen should be collected 48 hours later and tested. Magnesium [Mass/Vol] 2.2 mg/dL 1.6-2.6 [facility] - Hematology and Cell countsOrdered By: Dr. Ayala on 02-13-2022 Immature granulocytes/100 WBC (Bld) 0.400 % 0.0-0.9 [facility] Comment on above: IG% - Immature Granu locytes (promyelocytes, myelocytes and metamyelocytes) > 1% indicates that a LEFT SHIFT is Present. Nucleated RBC/100 WBC (Bld) [Ratio] 0 % 0-5 [facility] Absolute lymphocyte countOrd ered By: HEALTH ASSESSMENT on 12-18-2021 Lymphocytes Auto (Unsp spec) [#/Vol] 2.74 10*3/uL 0.83-4.51 [facility] Absolute reticulocyte countO rdered By: HEALTH ASSESSMENT on 12-18-2021 Reticulocytes (Bld) [#/Vol] 0.00 10*3/uL 0-5 [facility] Basophil percentageOrdered B y: HEALTH ASSESSMENT on 12-18-2021 Basophil percentage 3.9 mg/dL 2.5-4.9 [facility] Bilirubin [Mass/Vol] 0.50 mg/dL 0.20-1.00 [facility] Comment on above: For patients on eltr ombopag therapy, use of Dimension [place] TBIL is not recommended. Chloride [Moles/Vol] 109 mmol/L 98-107 [facility] Cholesterol [Mass/Vol] 152 mg/dL <200 [facility] Comment on above: <200 mg/dL Desirable 200-240 mg/dL Borderline >240 mg/dL High Risk Glucose [Mass/Vol] 95 mg/dL 74-106 [facility] Neutrophils (Bld) [#/Vol] 4.1 10*3/uL 2.0-7.7 [facility] Potassium [Moles/Vol] 3.5 mmol/L 3.5-5.1 [facility] Protein [Mass/Vol] 7.1 g/dL 6.4-8.2 [facility] Sodium [Moles/Vol] 141 mmol/L 136-145 [facility] Triglyceride [Mass/Vol] 108 mg/dL <199 [facility] Comment on above: The drugs N-Acetylcy steine and Metamizole may falsely depress this assay.Serum Triglycerides Reference Interval Normal <150 mg/dL Borderline high 150 - 199 mg/dL High 200 - 499 mg/dL Very High > or = 500 mg/dL WBC (Bld) [#/Vol] 7.6 10*3/uL 4.4-11.0 [facility] Bilirubin Test strip Ql (U)O rdered By: HEALTH ASSESSMENT on 12-18-2021 Bilirubin Ql (U) Negative Negative [facility] Blood erythrocytes count (nu mber/volume)Ordered By: HEALTH ASSESSMENT on 12-18-2021 RBC (Bld) [#/Vol] 4.00 10*6/uL 4.2-5.4 [facility] Blood hemoglobin measurement (mass/volume)Ordered By: HEALTH ASSESSMENT on 12-18-2021 Hemoglobin (Bld) [Mass/Vol] 11.8 g/dL 12.0-15.0 [facility] Blood platelet mean volumeOr dered By: HEALTH ASSESSMENT on 12-18-2021 Platelet mean volume (Bld) [Entitic vol] 10.0 fL 6.2-12.0 [facility] Determination of erythrocyte mean corpuscular volume (MCV)Ordered By: HEALTH ASSESSMENT on 12-18-2021 MCV (RBC) [Entitic vol] 92.5 fL 81-99 [facility] Direct bilirubinOrdered By: HEALTH ASSESSMENT on 12-18-2021 Bilirubin.direct [Mass/Vol] 0.13 mg/dL 0.00-0.30 [facility] Hematocrit Auto (Bld) [Volum e fraction]Ordered By: HEALTH ASSESSMENT on 12-18-2021 Hematocrit (Bld) [Volume fraction] 37.0 % 37-47 [facility] Ketones Test strip Ql (U)Ord ered By: HEALTH ASSESSMENT on 12-18-2021 Ketones Ql (U) Negative Negative [facility] Laboratory - Chemistry and C hemistry - challengeOrdered By: HEALTH ASSESSMENT on 12-18-2021 ALP [Catalytic activity/Vol] 87 U/L 45-117 [facility] ALT [Catalytic activity/Vol] 26 U/L 13-56 [facility] Cholesterol.total/Yaritza sterol in HDL [Mass ratio] 3.50 {ratio} [facility] CO2 [Moles/Vol] 25.0 mmol/L 21.0-32.0 [facility] Globulin (S) [Mass/Vol] 4.0 g/dL 2.2-4.2 [facility] Urea nitrogen/Creatinine [Mass ratio] 19.0 mg/mg 10- [facility] Laboratory - Chemistry and C hemistry - challengeOrdered By: Nhung Hatch on 12-18-2021 Free T4 [Mass/Vol] 1.67 ng/dL 0.76-1.46 [facility] Laboratory - Hematology and Cell countsOrdered By: HEALTH ASSESSMENT on 12-18-2021 Erythrocyte distribution width (RBC) [Entitic vol] 42.4 fL 35.1-43.9 [facility] Erythrocyte distribution width (RBC) [Ratio] 12.5 % 11.6-14.6 [facility] MCH (RBC) [Entitic mass] 29.5 pg 27.0-32.0 [facility] Nucleated RBC/100 WBC (Bld) [Ratio] 0 % 0-5 [facility] MCHC Auto (RBC) [Mass/Vol]Or dered By: HEALTH ASSESSMENT on 12-18-2021 MCHC (RBC) [Mass/Vol] 31.9 g/dL 32-36 [facility] Nitrite Test strip Ql (U)Ord ered By: HEALTH ASSESSMENT on 12-18-2021 Nitrite Ql (U) Negative Negative [facility] No Panel InformationOrdered By: HEALTH ASSESSMENT on 12-18-2021 Estimated GFR (MDRD) Amer 127 mL/min >60 [facility] Comment on above: GFR Calc Estimated GFR (MDRD) Non-Af Amer 105 mL/min >60 [facility] Comment on above: Non- GFR Calc No Panel InformationOrdered By: Nhung Hatch on 12-18-2021 Thyroid Stimulating Hormone (TSH) 0.04 uIU/mL 0.358-3.74 [facility] Platelets bldOrdered By: HEA LTH ASSESSMENT on 12-18-2021 Platelets (Bld) [#/Vol] 330 10*3/uL 150-450 [facility] Protein Test strip Ql (U)Ord ered By: HEALTH ASSESSMENT on 12-18-2021 Protein Ql (U) 15 mg/dl Negative [facility] Segmented neutrophils/100 WB C Auto (Bld)Ordered By: HEALTH ASSESSMENT on 10-24-2022 Segmented neutrophils/100 WBC (Bld) 54.2 % 47-70 [facility] Serum or plasma albumin mamie urement (mass/volume)Ordered By: HEALTH ASSESSMENT on 12-18-2021 Albumin [Mass/Vol] 3.1 g/dL 3.2-5.0 [facility] Serum or plasma albumin/glob ulin mass ratioOrdered By: HEALTH ASSESSMENT on 12-18-2021 Albumin/Globulin [Mass ratio] 0.8 {ratio} 0.9-2.4 [facility] Serum or plasma calcium mamie urement (mass/volume)Ordered By: HEALTH ASSESSMENT on 12-18-2021 Calcium [Mass/Vol] 9.0 mg/dL 8.5-10.1 [facility] Serum or plasma cholesterol in HDL measurement (mass/volume)Ordered By: HEALTH ASSESSMENT on 12-18-2021 Cholesterol in HDL [Mass/Vol] 43 mg/dL >40 [facility] Comment on above: The drugs N-Acetylcy steine and Metamizole may falsely depress this assay. Reference Range HDL <40 mg/dL Low HDL Cholesterol HDL >or= 60 mg/dL High HDL Cholesterol Serum or plasma cholesterol in VLDL measurement (mass/volume)Ordered By: HEALTH ASSESSMENT on 12-18-2021 Cholesterol in VLDL [Mass/Vol] 22 mg/dL 5-40 [facility] Serum or plasma creatinine m easurement (mass/volume)Ordered By: HEALTH ASSESSMENT on 12-18-2021 Creatinine [Mass/Vol] 0.63 mg/dL 0.55-1.02 [facility] Comment on above: The validity of the calculated GFR & GFRAA in patients over 70 years has not been determined. Clinical correlation is essential. Serum or plasma low density lipoprotein (LDL) cholesterol measurement (mass/volume)Ordered By: HEALTH ASSESSMENT on 12-18-2021 Cholesterol in LDL [Mass/Vol] 87 mg/dL 0-130 [facility] Serum or plasma prolactin me asurement (mass/volume)Ordered By: Nhung Hatch on 12-18-2021 Prolactin [Mass/Vol] 16.6 ng/mL [facility] Comment on above: NORMAL REFERENCE RAN GES FEMALE NON- 2.2 - 30.3 ng/mL 8.1 - 347.6 ng/mL POST-MENOPAUSAL 0.7 - 31.5 ng/mL MALE 2.5 - 17.4 ng/mL Serum or plasma urea nitroge n measurement (mass/volume)Ordered By: HEALTH ASSESSMENT on 12-18-2021 Urea nitrogen [Mass/Vol] 12 mg/dL 7-18 [facility] Serum or plasma uric acid me asurement (mass/volume)Ordered By: HEALTH ASSESSMENT on 12-18-2021 Urate [Mass/Vol] 5.1 mg/dL 2.6-6.0 [facility] Comment on above: The drugs N-Acetylcy steine and Metamizole may falsely depress this assay. Thin prep Papanicolaou smear with manual screeningOrdered By: HEALTH ASSESSMENT on 12-18-2021 Thin prep Papanicolaou smear with manual screening 14 U/L 15-37 [facility] Thin prep Papanicolaou smear with manual screening 7 5-15 [facility] Thin prep Papanicolaou smear with manual screening 155 U/L 84-246 [facility] Urine blood detectionOrdered By: HEALTH ASSESSMENT on 12-18-2021 RBC Ql (U) 10 /ul Negative [facility] Urine clarityOrdered By: A [facility] ASSESSMENT on 12-18-2021 Clarity (U) Sl. Cloudy Clear [facility] Urine color determinationOrd ered By: HEALTH ASSESSMENT on 12-18-2021 Color (U) Yellow Yellow [facility] Urine glucose detectionOrder ed By: HEALTH ASSESSMENT on 12-18-2021 Glucose Ql (U) Normal mg/dl Normal [facility] Urine leukocyte esterase det ection by dipstickOrdered By: HEALTH ASSESSMENT on 12-18-2021 Leukocyte esterase Test strip Ql (U) 500 /ul Negative [facility] Urine pHOrdered By: HEALTH A SSESSMENT on 12-18-2021 pH (U) 6.5 [pH] 5.0 - 8.0 [facility] Urine specific gravity measu rementOrdered By: HEALTH ASSESSMENT on 12-18-2021 Specific gravity (U) [Rel density] 1.015 1.002-1.030 [facility] Urobilinogen Auto test strip Ql (U)Ordered By: HEALTH ASSESSMENT on 12-18-2021 Urobilinogen Ql (U) 1 mg/dl Normal [facility] COVID-19 virus antigen assay Ordered By: Dr. Calles on 11-23-2021 SARS-CoV-2 (COVID-19) Ag IA.rapid Ql (Resp) [facility] Basophil percentageon 2021 WBC (Bld) [#/Vol] 7.1 10*3/uL 4.4-11.0 [facility] Work Phone: Blood erythrocytes count (nu mber/volume)on 08-24-2021 RBC (Bld) [#/Vol] 4.07 10*6/uL 4.2-5.4 [facility] Work Phone: Blood hemoglobin measurement (mass/volume)on 08-24-2021 Hemoglobin (Bld) [Mass/Vol] 12.0 g/dL 12.0-15.0 [facility] Work Phone: Blood platelet mean volumeon 08-24-2021 Platelet mean volume (Bld) [Entitic vol] 9.8 fL 6.2-12.0 [facility] Work Phone: Determination of erythrocyte mean corpuscular volume (MCV)on 08-24-2021 MCV (RBC) [Entitic vol] 94.8 fL 81-99 [facility] Work Phone: Hematocrit Auto (Bld) [Volum e fraction]on 08-24-2021 Hematocrit (Bld) [Volume fraction] 38.6 % 37-47 [facility] Work Phone: Laboratory - Hematology and Cell countson 08-24-2021 Erythrocyte distribution width (RBC) [Entitic vol] 43.8 fL 35.1-43.9 [facility] Work Phone: Erythrocyte distribution width (RBC) [Ratio] 12.6 % 11.6-14.6 [facility] Work Phone: MCH (RBC) [Entitic mass] 29.5 pg 27.0-32.0 [facility] Work Phone: MCHC Auto (RBC) [Mass/Vol]on 08-24-2021 MCHC (RBC) [Mass/Vol] 31.1 g/dL 32-36 [facility] Work Phone: Platelets bldon 08-24-2021 Platelets (Bld) [#/Vol] 323 10*3/uL 150-450 [facility] Work Phone: Serum or plasma prolactin me asurement (mass/volume)on 05-15-2021 Prolactin [Mass/Vol] 29.2 ng/mL [facility] Work Phone: Comment on above: NORMAL REFERENCE RAN GES FEMALE NON- 2.2 - 30.3 ng/mL 8.1 - 347.6 ng/mL POST-MENOPAUSAL 0.7 - 31.5 ng/mL MALE 2.5 - 17.4 ng/mL Final Surgical Pathology Rep tommie 04-01-2020 Final Surgical Pathology Report . Pathology Reports Accession: Collected Date/Time: Received Date/Time: Pathologist: [id number] 03/30/2020 14:04 EST 03/31/2020 14:16 EST RAKESH ALARCON MD Final Surgical Pathology Report DIAGNOSIS: SKIN, MIDFOREHEAD: SQUAMOUS PAPILLOMA. COMMENT: [facility] - [id number] CLINICAL INFORMATION: SLOWLY GETTING BIGGER Procedure: TANGENTIAL [...] Electronically Signed by Pathology Report verified by [facility] [place] [facility] Electronically signed by RAKESH ALARCON Sign out Date: 04/01/2020 15:13 Performing Lab: [facility] [place] [facility], [address] [place] [address] Normal [facility] ([place] Comment on above: Performed By: #### S PFR #### [address] [address] HPVon 09-03-2019 HPV Interp Normal See Interp HPVN [facility] [place] Comment on above: Order Comment: Order placed by AP_HPV_ORDER rule from [id number] Result Comment: High Risk HPV Typing: NEGATIVE [...] HPVN Performed By: #### H PV #### [place] [address] HPV Source Cervix Normal [facility] ([place] Comment on above: Order Comment: Order placed by AP_HPV_ORDER rule from [id number] Performed By: #### H PV #### [place] [address] [employer] Cytology Reporton 2019 [employer] Cytology Report . Pathology Reports Accession: Collected Date/Time: Received Date/Time: Pathologist: [id number] 08/19/2019 12:16 EDT 08/20/2019 18:00 EDT [employer] [facility] Report SPECIMEN: Specimen Description: Liquid Prep w/ HPV Specimen: Cervical/Endocervi patria Screening or Diagnostic: Screening RELEVANT HISTORY: LMP: unknown [id number] SPECIMEN ADEQUACY: SATISFACTORY FOR EVALUATION ENDOCERVICAL/TRANS FORMATIONAL ZONE COMPONENT PRESENT INTERPRETATION/RES ULTS: NEGATIVE FOR INTRAEPITHELIAL LESION OR MALIGNANCY ADJUNCTIVE TESTING: HIGH RISK HPV DNA TESTING ORDERED, REPORT TO FOLLOW UNDER SEPARATE COVER COMMENT: This Pap Test was successfully processed and evaluated with the assistance of the [employer] ThinPrep Test Imaging System. Electronically Signed by Pathology report verified by [facility] [place] [facility]. Screened by: MAURO Electronically signed by Natalie CORBIN (ASCP) Sign-Out Date: 08/31/2019 11:34 Performing Lab: [address] Disclaimer The Pap test is a screening test for cervical cancer. As evidenced by published data, it is subject to both inherent false negative and false positive results. Your patient's results should be interpreted in context with pertinent clinical history including gynecological examination. Normal [facility] ([place] Comment on above: Performed By: #### G YCR #### [facility] [place] [facility] [address] [place], [place] [address] Office Visiton 09-03-2016 Documentation of current medications (procedure) Done Invalid Interpretation Code [facility] Work Phone: Tobacco smoking status NHIS Never Invalid Interpretation Code [facility] Work Phone: Tobacco use CPHS Never smoker Invalid Interpretation Code [facility] Work Phone: Office Visit: Spine Visit- L neck & shoulder painon 06-04-2016 Documentation of current medications (procedure) Done Invalid Interpretation Code [facility] Work Phone: Clinical Lists Update: Prelo burnisher 11-04-2012 Tobacco use CPHS never smoker Invalid Interpretation Code [facility] Work Phone: COVID-19 virus antigen assay SARS-CoV-2 (COVID-19) Ag IA.rapid Ql (Resp) [facility] Work Phone: Vital Signs Date Time Vital Sign Value Performing Clinician Facility 10-20-2024 17:08-0400 Body height 170.18 cm Chani Khan [employer] Work Phone: [facility] 10-20-2024 17:08-0400 Body mass index (BMI) [Ratio] 39.1 kg/m2 Chani Khan [employer] Work Phone: [facility] 10-20-2024 17:08-0400 Body temperature 97.9 [degF] Chani Khan [employer] Work Phone: [facility] 10-20-2024 17:08-0400 Body weight 113.39 kg Chani Khan [employer] Work Phone: [facility] 10-20-2024 17:08-0400 Diastolic blood pressure 78 mm[Hg] Chani Khan [employer] Work Phone: [facility] 10-20-2024 17:08-0400 Heart rate 90 /min Chani [place] [employer] Work Phone: [facility] 10-20-2024 17:08-0400 SaO2% (BldA) [Mass fraction] 96 % Chanibelgica Khan [employer] Work Phone: [facility] 10-20-2024 17:08-0400 Systolic blood pressure 128 mm[Hg] Chaniyumiko Khan [employer] Work Phone: [facility] 06-12-2024 08:23-0400 Body height 170.18 cm Chani Khan [employer] Work Phone: [facility] 06-12-2024 08:23-0400 Body mass index (BMI) [Ratio] 39.2 kg/m2 Chani [place] [employer] Work Phone: [facility] 06-12-2024 08:23-0400 Body weight 113.45 kg Chani Khan [employer] Work Phone: [facility] 06-12-2024 08:23-0400 Diastolic blood pressure 84 mm[Hg] Chani Khan [employer] Work Phone: [facility] 06-12-2024 08:23-0400 Heart rate 81 /min Chani [place] [employer] Work Phone: [facility] 06-12-2024 08:23-0400 SaO2% (BldA) [Mass fraction] 95 % Chani Khan [employer] Work Phone: [facility] 06-12-2024 08:23-0400 Systolic blood pressure 135 mm[Hg] Chani Khan [employer] Work Phone: [facility] 06-14-2023 09:30-0400 Body height 170.18 cm [employer] Chani Khan [employer] Work Phone: [facility] 06-14-2023 09:30-0400 Body mass index (BMI) [Ratio] 37.1 kg/m2 [employer] Chani Bill [employer] Work Phone: [facility] 06-14-2023 09:30-0400 Body temperature 97.8 [degF] [employer] Chani Kahn [employer] Work Phone: [facility] 06-14-2023 09:30-0400 Body weight 107.61 kg [employer] Chani Bill [employer] Work Phone: [facility] 06-14-2023 09:30-0400 Diastolic blood pressure 79 mm[Hg] [employer] Chani [place] [employer] Work Phone: [facility] 06-14-2023 09:30-0400 Heart rate 84 /min [employer] Chani Khan [employer] Work Phone: [facility] 06-14-2023 09:30-0400 Systolic blood pressure 131 mm[Hg] [employer] Chani Bill [employer] Work Phone: [facility] 06-11-2022 09:51-0400 Body height 170.18 cm [employer] Chani Khan [employer] Work Phone: [facility] 06-11-2022 09:51-0400 Body mass index (BMI) [Ratio] 36.1 kg/m2 [employer] Chani Khan [employer] Work Phone: [facility] 06-11-2022 09:51-0400 Body temperature 98.6 [degF] [employer] Chani Bill [employer] Work Phone: [facility] 06-11-2022 09:51-0400 Body weight 104.55 kg [employer] Chani Khan [employer] Work Phone: [facility] 06-11-2022 09:51-0400 Diastolic blood pressure 87 mm[Hg] [employer] Chanibelgica Khan [employer] Work Phone: [facility] 06-11-2022 09:51-0400 Heart rate 80 /min [employer] Chani Khan [employer] Work Phone: [facility] 06-11-2022 09:51-0400 Respiratory rate 18 /min [employer] Chani Khan [employer] Work Phone: [facility] 06-11-2022 09:51-0400 SaO2% (BldA) [Mass fraction] 94 % [employer] Chani Khan [employer] Work Phone: [facility] 06-11-2022 09:51-0400 Systolic blood pressure 131 mm[Hg] [employer] Chani Khan [employer] Work Phone: [facility] 03-30-2022 13:02-0500 Body mass index (BMI) [Ratio] 36.1 kg/m2 [employer] Chani Khan [employer] Work Phone: [facility] 03-30-2022 13:02-0500 Body weight 104.49 kg [employer] Chani Khan [employer] Work Phone: [facility] 03-30-2022 13:02-0500 Diastolic blood pressure 82 mm[Hg] [employer] Chani Khan [employer] Work Phone: [facility] 03-30-2022 13:02-0500 Systolic blood pressure 135 mm[Hg] [employer] Chani Khan [employer] Work Phone: [facility] 03-05-2022 09:28-0500 Body mass index (BMI) [Ratio] 36.3 kg/m2 [employer] Chani Khan [employer] Work Phone: [facility] 03-05-2022 09:28-0500 Body weight 105.23 kg [employer] Chani Khan [employer] Work Phone: [facility] 03-05-2022 09:28-0500 Diastolic blood pressure 80 mm[Hg] [employer] Chani Khan [employer] Work Phone: [facility] 03-05-2022 09:28-0500 Systolic blood pressure 126 mm[Hg] [employer] Chani Bill [employer] Work Phone: [facility] 03-02-2022 12:06-0500 Body mass index (BMI) [Ratio] 36.1 kg/m2 [employer] Chani [place] [employer] Work Phone: [facility] 03-02-2022 12:06-0500 Body weight 104.83 kg [employer] Chani [place] [employer] Work Phone: [facility] 03-02-2022 12:06-0500 Diastolic blood pressure 78 mm[Hg] [employer] Chani [place] [employer] Work Phone: [facility] 03-02-2022 12:06-0500 Systolic blood pressure 132 mm[Hg] [employer] Chani [place] [employer] Work Phone: [facility] 02-20-2022 18:30-0500 Body temperature 97 [degF] [employer] Chani Bill [employer] Work Phone: [facility] 02-20-2022 18:30-0500 Diastolic blood pressure 88 mm[Hg] [employer] Chani [place] [employer] Work Phone: [facility] 02-20-2022 18:30-0500 Heart rate 84 /min [employer] Chani [place] [employer] Work Phone: [facility] 02-20-2022 18:30-0500 Respiratory rate 16 /min [employer] Chani [place] [employer] Work Phone: [facility] 02-20-2022 18:30-0500 SaO2% (BldA) [Mass fraction] 98 % [employer] Chani [place] [employer] Work Phone: [facility] 02-20-2022 18:30-0500 Systolic blood pressure 144 mm[Hg] [employer] Chani [place] [employer] Work Phone: [facility] 02-20-2022 15:00-0500 Inhaled oxygen flow rate 4 L/min [employer] Chani [place] [employer] Work Phone: [facility] 02-20-2022 08:59-0500 Body height 170.18 cm [employer] Chani [place] [employer] Work Phone: [facility] Work Phone: 02-20-2022 08:59-0500 Body mass index (BMI) [Ratio] 36.9 kg/m2 [employer] Chani Bill [employer] Work Phone: [facility] 02-20-2022 08:59-0500 Body weight 107.1 kg [employer] Chani [place] [employer] Work Phone: [facility] 02-08-2022 08:24-0500 Body mass index (BMI) [Ratio] 37.3 kg/m2 [employer] Chani [place] [employer] Work Phone: [facility] 02-08-2022 08:24-0500 Body weight 107.95 kg [employer] Chani [place] [employer] Work Phone: [facility] 02-08-2022 08:24-0500 Diastolic blood pressure 82 mm[Hg] [employer] Chani [place] [employer] Work Phone: [facility] 02-08-2022 08:24-0500 Systolic blood pressure 144 mm[Hg] [employer] Chani Bill [employer] Work Phone: [facility] 09-07-2021 11:37-0400 Body height 170.[address] Stephen Black Work Phone: [facility] Work Phone: 09-07-2021 11:33-0400 Body mass index (BMI) [Ratio] 36.8 kg/m2 Dr. Stephen Black Work Phone: [facility] Work Phone: 09-07-2021 11:33-0400 Body weight 106.[address] Stephen Black Work Phone: [facility] Work Phone: 09-07-2021 11:33-0400 Diastolic blood pressure 81 mm[Hg] Dr. Stephen Black Work Phone: [facility] Work Phone: 09-07-2021 11:33-0400 Systolic blood pressure 117 mm[Hg] Dr. Stephen Black Work Phone: [facility] Work Phone: 06-08-2021 10:05-0400 Body height 170.[address] Stephen Black Work Phone: [facility] Work Phone: 06-08-2021 10:05-0400 Body mass index (BMI) [Ratio] 37.4 kg/m2 Dr. Stephen Black Work Phone: [facility] Work Phone: 06-08-2021 10:05-0400 Body temperature 97.2 [degF] Dr. Stephen Black Work Phone: [facility] Work Phone: 06-08-2021 10:05-0400 Body weight 108.[address] Stephen Black Work Phone: [facility] Work Phone: 06-08-2021 10:05-0400 Diastolic blood pressure 80 mm[Hg] Dr. Stephen Black Work Phone: [facility] Work Phone: 06-08-2021 10:05-0400 Heart rate 90 /min Dr. Stephen Black Work Phone: [facility] Work Phone: 06-08-2021 10:05-0400 Respiratory rate 18 /min Dr. Stephen Black Work Phone: [facility] Work Phone: 06-08-2021 10:05-0400 SaO2% (BldA) [Mass fraction] 97 % Dr. Stephen Black Work Phone: [facility] Work Phone: 06-08-2021 10:05-0400 Systolic blood pressure 110 mm[Hg] Dr. Stephen Black Work Phone: [facility] Work Phone: 09-03-2016 16:24-0400 BMI (Body Mass Index) 43.27 kg/m2 [facility] Work Phone: 09-03-2016 16:24-0400 Height 144.78 cm [facility] Work Phone: 09-03-2016 16:24-0400 Weight 90.72 kg [facility] Work Phone: 11-04-2012 16:06-0400 BMI (Body Mass Index) 30.81 kg/m2 Yolanda Dossi DC [facility] Work Phone: 11-04-2012 16:06-0400 Body Temperature 99.4 [degF] Yoladna Dossi DC [facility] Work Phone: 11-04-2012 16:06-0400 BP Diastolic 79 mm[Hg] Yolanda Dossi DC [facility] Work Phone: 11-04-2012 16:06-0400 BP Systolic 125 mm[Hg] Yolanda Dossi DC [facility] Work Phone: 11-04-2012 16:06-0400 BSA (Body Surface Area) 1.96 m2 Yolanda Dossi DC [facility] Work Phone: 11-04-2012 16:06-0400 Height 167.64 cm Yolanda Dossi DC [facility] Work Phone: 11-04-2012 16:06-0400 Pulse (Heart Rate) 76 /min Yolanda Pena DC [facility] Work Phone: 11-04-2012 16:06-0400 Respiratory Rate 14 /min Yolanda Dossi DC [facility] Work Phone: 11-04-2012 16:06-0400 Weight 86.27 kg Yolanda Dossi DC [facility] Work Phone: Encounters Encounter Date Encounter Type Care Provider Facility Start: 10-20-2024 End: 10-20-2024 Patient encounter procedure Chandana Luna [facility] Work Phone: Start: 10-20-2024 End: 10-20-2024 ambulatory Chani Khan [employer] Work Phone: [facility] Start: 08-25-2024 Non-patient / Non-visit Dr. Jacklyn Meza MD -[facility] Work Phone: Start: 06-12-2024 End: 06-12-[address] Arnulfo Mishra MD -[facility] Work Phone: Start: 06-12-2024 End: 06-12-2024 ambulatory Arnulfo Tad Facility:[facility] Start: 06-10-2024 End: 06-10-2024 ambulatory Chani Khan [employer]C Work Phone: [facility] Work Phone: Start: 06-10-2024 End: 06-10-[address] [facility] Work [facility] Start: 06-10-2024 End: 06-10-2024 ambulatory Arnulfo Mishra Facility:[facility] Start: 02-05-2024 End: 02-05-2024 ambulatory Chani Khan NP Facility:[facility] Start: 12-24-[facility] Start: 12-19-2023 End: 12-19-2023 ambulatory Thais Echeverria Facility:[facility] Start: 11-29-2023 ambulatory Chani Khan NP Facil ity:[facility] Start: 06-14-2023 End: 06-14-2023 Patient encounter procedure [employer] Chani Khan [employer]ER Work Phone: [facility] Work Phone: Start: 06-13-2023 End: 06-13-2023 ambulatory [employer] Chani Khan [employer]CTION D[employer]ER Work Phone: [facility] Work Phone: Start: 06-13-2023 End: 06-13-2023 Patient encounter procedure [employer] Chani Khan CONSTRUCTION DRILLER Work Phone: [facility] Work Phone: Start: 07-05-2022 End: 07-05-2022 ambulatory [employer] Chani Khan [employer]CTION DRILLER Work Phone: [facility] Work Phone: Start: 07-05-2022 End: 07-05-2022 Patient encounter procedure [employer] Chani Khan CONSTRUCTION DRILLER Work Phone: [facility] Start: 06-11-2022 End: 06-11-2022 Patient encounter procedure [employer] Chani Khan CONSTRUCTION DRILLER Work Phone: [facility] Start: 03-30-2022 End: 03-30-2022 Patient encounter procedure [employer]C Chani Khan CONSTRUCTION DRILLER Work Phone: [facility] Start: 03-19-2022 End: 03-19-2022 ambulatory [employer]C Chani Khan [employer]STRUCTION DRILLER Work Phone: [facility] Work Phone: Start: 03-19-2022 End: 03-19-2022 Patient encounter procedure [employer]C Chani Khan CONSTRUCTION DRILLER Work Phone: [facility], [facility] Start: 03-05-2022 End: 03-05-2022 Patient encounter procedure [employer]C Chani Khan CONSTRUCTION DRILLER Work Phone: [facility] Start: 03-02-2022 End: 03-02-2022 ambulatory [employer] Chani Khan CONSTRUCTION DRILLER Work Phone: [facility] Work Phone: Start: 03-02-2022 End: 03-02-2022 Patient encounter procedure [employer]C Chani Khan CONSTRUCTION DRILLER Work Phone: [facility] Start: 02-20-2022 Non-patient / Non-visit [employer] Chani Khan CONSTRUCTION DRILLER Work Phone: [facility] Start: 02-20-2022 End: 02-20-2022 Admission to same day surgery center [employer] Chani Khan [employer]STRUCTION DRILLER [facility] Start: 02-20-2022 End: 02-20-2022 ambulatory [employer]C Chani Khan CONSTRUCTION DRILLER Work Phone: [facility] Work Phone: Start: 02-14-2022 End: 02-14-2022 Non-patient / Non-visit [employer] Chani Khan CONSTRUCTION DRILLER Work Phone: [facility] Start: 02-09-2022 Non-patient / Non-visit [employer] Chani Khan CONSTRUCTION DRILLER Work Phone: [facility] Start: 02-08-2022 End: 02-08-2022 Patient encounter procedure [employer]C Chani Khan CONSTRUCTION DRILLER Work Phone: [facility] Start: 12-18-2021 End: 12-18-[address] Stephen Black Work Phone: [facility] Work Phone: Start: 12-18-2021 End: 12-18-[address] tSephen Black Work Phone: [facility] Start: 12-18-[address] Stephen Black Work Phone: [facility] Start: 11-23-[address] [facility] Start: 09-13-2021 End: 09-13-[address] Stephen Black [facility] Start: 09-07-2021 End: 09-07-[address] Stephen Black [facility] Start: 09-07-2021 End: 09-07-[address] Stephen Black Work Phone: [facility] Start: 08-24-2021 End: 08-24-[address] Stephen Black Work Phone: [facility] Start: 06-08-2021 End: 06-08-[address] Stephen Black Work Phone: [facility] Start: 05-15-2021 End: 05-15-2021 Patient encounter procedure [facility] Procedures Date Procedure Procedure Detail Performing Clinician Start: 03-19-2022 Pelvic echography [employer]C Chani Khan CONSTRUCTION DRILLER Work Phone: Start: 03-19-2022 Transvaginal echography [employer]-Salima Khan [employer]CTION [employer]LLER Work Phone: Start: 02-20-2022 Vaginal hysterectomy [employer]LLER -Salima Khan [employer]STRUCTION D[employer]LLER Work Phone: Start: 09-13-[address] [...] Graff Dossi DC Work Phone: Urine culture [employer] Chani dudley CONSTRUCTION DRILLER Work Phone: Urine culture [employer] Chani dudley CONSTRUCTION DRILLER Work Phone: Viral antigen assay Dr. Lucía Black Work Phone: Viral antigen assay [employer] Vivian Khan CONSTRUCTION DRILLER Work Phone: Plan of Treatment Date Care Activity Detail Author Start: 02-21-2022 Introduction of urinary catheter [facility] Work Phone: Start: 02-21-2022 Oxygen therapy [facility] Work Phone: Start: 02-20-2022 Patient discharge [facility] Start: 02-20-2022 Anesthesia intraperitoneal lower abd w/laps nos ANESTH SURG LOWER ABDOMEN [facility] Start: 02-20-2022 Laps vaginal hysterect > 250 gm rmvl tube&/ovar LAPARO-VAG HYST W/T/O COMPL [facility] Start: 02-20-2022 Introduction of urinary catheter [facility] Start: 02-20-2022 Ambulation therapy management [facility] Start: 02-20-2022 Continuous pulse oximetry [facility] Start: 02-20-2022 Elevation of head of bed [facility] Start: 02-20-2022 Incentive spirometry [facility] Start: 02-20-2022 Measuring intake and output [facility] Start: 02-20-2022 Notification of physician [facility] Start: 02-20-2022 End: 02-20-2022 Oxygen therapy [facility] Start: 02-20-2022 Patient education [facility] Start: 02-20-2022 Procedures relating to eating and drinking [facility] Start: 02-20-2022 Taking patient vital signs [facility] Start: 02-20-2022 [facility] Start: 09-07-2021 Patient referral [facility] Work Phone: Start: 09-05-2016 End: 09-05-2016 Physical Therapy General Physical Therapy [facility], [address] [place] [address], [facility] Work Phone: Start: 06-04-2016 End: 06-26-2016 Follow up Appt 3x/week Follow up Appt 3x/week [facility] Work Phone: Start: 05-30-2016 End: 05-30-2016 Follow up Appt 3x/week Follow up Appt 3x/week [facility] Work Phone: Start: 05-29-2016 End: 05-29-2016 Follow up Appt 3x/week Follow up Appt 3x/week [facility] Work Phone: Start: 05-22-2016 End: 05-22-2016 X-ray exam of neck spine X-Ray, Spine, Cervical 2-3 views [facility] Work Phone: CBC W Auto Different ial panel - Blood [facility] Work Phone: DXA Bone [Mass/Area] Bone density [facility] Electrocardiographic procedure [facility] Work Phone: Electrocardiographic procedure [facility] Patient referral [facility] Work Phone: Prolactin [Mass/volu me] in Serum or Plasma [facility] Work Phone: Prolactin [Mass/volu me] in Serum or Plasma [facility] Prolactin measurement [facility] T4 free measurement [facility] Work Phone: T4 free measurement [facility] Thyroid stimulating hormone measurement [facility] Work Phone: Thyroid stimulating hormone measurement [facility] Immunizations Immunization Date Immunization Notes Care Provider Fa [facility] 11-23-2023 influenza, seasonal, injectable, preservative free Chani [place] [employer]ER-C Work Phone: [facility] 01-11-2023 influenza, injectabl e, quadrivalent, preservative free [employer]C Chani Bill CONSTRUCTION DRILLER Work Phone: [facility] 01-17-2022 influenza, injectabl e, quadrivalent, preservative free [employer] Chani [place] [employer]CTION D[employer]LLER Work Phone: [facility] 01-17-2022 influenza, seasonal, injectable [employer]C Chani [place] [employer]STRUCTION DRILLER Work Phone: [facility] 02-15-2021 Covid (Pfizer) [facility] 01-25-2021 Covid (Pfizer) [facility] 12-16-2020 influenza, injectabl e, quadrivalent, preservative free [employer]C Chani Bill [employer]STRUCTION DRILLER Work Phone: [facility] 12-16-2020 influenza, seasonal, injectable [facility] 11-23-2019 influenza, injectabl e, quadrivalent, preservative free [employer]C Chani Bill [employer]STRUCTION DRILLER Work Phone: [facility] 11-23-2019 influenza, seasonal, injectable [facility] 12-10-2018 influenza, injectabl e, quadrivalent, preservative free [employer]C Chani Khan [employer]CTION [employer]LLER Work Phone: [facility] 12-10-2018 influenza, seasonal, injectable [facility] 11-23-2017 influenza, injectabl e, quadrivalent, preservative free [employer]C Chani Khan [employer]STRUCTION DRILLER Work Phone: [facility] 11-23-2017 influenza, seasonal, injectable [facility] 11-21-2016 influenza, injectabl e, quadrivalent, preservative free [employer]C Chani [place] CONSTRUCTION DRILLER Work Phone: [facility] 11-21-2016 influenza, seasonal, injectable [facility] 12-05-2015 hepatitis B vaccine, pediatric or pediatric/adolescent dosage [facility] 11-27-2015 influenza, injectabl e, quadrivalent, preservative free [employer]ER-C Chanibelgica Khan CONSTRUCTION DRILLER Work Phone: [facility] 11-27-2015 influenza, seasonal, injectable [facility] 02-07-2015 influenza, injectabl e, quadrivalent, preservative free [employer]C Chani Khan CONSTRUCTION DRILLER Work Phone: [facility] 02-07-2015 influenza, seasonal, injectable [facility] 02-07-2015 measles, mumps and rubella virus vaccine [facility] 01-17-2015 hepatitis B vaccine, pediatric or pediatric/adolescent dosage [facility] 01-17-2015 tetanus toxoid, redu yvon diphtheria toxoid, and acellular pertussis vaccine, adsorbed [facility] 11-11-2013 influenza, injectabl e, quadrivalent, preservative free [employer]-C Chani Khan CONSTRUCTION DRILLER Work Phone: [facility] 11-11-2013 influenza, seasonal, injectable [facility] Payers Date Payer Category Payer Self-pay [id number] 2023 Unknown [id number] [facility] [id number] 2016 Unknown [id number] Unknown [id number] 2.16.8 [id number] Unknown [id number] 2.16.8 [id number] Unknown [id number] 2.16.8 [id number] Unknown [id number] 2.16.8 [id number] Unknown [id number] 2.16.8 [id number] Unknown [id number] 2.16.8 [id number] Unknown [id number] 2.16.8 [id number] Unknown [id number] 2.16.8 [id number] Social History Date Type Detail Facility Start: 10-22-2020 End: 06-11-2022 Tobacco smoking status CTIS Unknown if ever smoked [facility] Start: 1970 Sex Assigned At Female [facility] Start: 02-05-2024 Tobacco smoking status NHIS Never smoked tobacco (finding) [facility] Start: 06-15-2024 Sex Female (finding) [facility] NEGATED: Highlighted row [facility] Medical Equipment Procedure Code Equipment Code [...] Assessment Result Facility 02-20-2022 Functional status Ambulates [facility] Work Phone: Mental Status Date Assessment Result Facility 02-20-2022 Cognitive function Level Of Consciousness Sedated [facility] Work Phone: 02-20-2022 Cognitive function Voice/Name 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 Patient never had previous colonoscopy. Patient denies any family history of colon cancer. Patient has bowel movements every 2 to 3 days denies any blood. Patient denies any chronic abdominal pain/nausea/vomiting. Patient does have reflux takes vjkc-hsh-[id number] omeprazole 20 mg p.o. daily which takes care of the symptoms. [facility] Medical History Low iron Shortness of breath [...] Hypercholesterolemia Thyroid disorder Surgical History History of [facility] History of D C S/P laparoscopy [...] Yes additional social history: - Registration at [facility] Past Medical/Surgical History Planned Operation [...] of 20#: No Neurological (more content not included)...[facility]12-21-2022 Hospital Discharge instructionsAmbulatory Orders* 12 Lead EKG [[facility]] Time Frame: 02/14/22, Location: None Selected [facility] Work Phone: evaluation noteNo assessment information available [facility] Work Phone: evaluation note* Diagnosis Onset Date Resolution Status Hyperprolactinemia chronic 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 [facility] Work Phone: evaluation note* Diagnosis Onset Date Resolution Status Hyperprolactinemia chronic 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 Abnormal uterine bleeding ac [place] Hyperprolactinemia chronic 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 [facility] Work Phone: Evaluation note* Diagnosis Onset Date Resolution Status Abnormal uterine bleeding ac [place] Hyperprolactinemia chronic 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 [facility] Work Phone: Evaluation note* Diagnosis Onset Date Resolution Status Abnormal uterine bleeding ac [place] Hyperprolactinemia chronic 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 Abnormal uterine bleeding ac [place] S/P laparoscopic assisted vaginal hysterectomy (LAVH) [facility] Work Phone: Evaluation note* Diagnosis Onset Date Resolution Status Abnormal uterine bleeding ac [place] Hyperprolactinemia chronic 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 Abnormal uterine bleeding ac [place] S/P laparoscopic assisted vaginal hysterectomy (LAVH) acute Infection due to ESBL-producing Escherichia coli acute Streptococcus agalactiae infection [facility] Work Phone: Evaluation note* Diagnosis Onset Date Resolution Status Encounter for postoperative care noneactive Hyperprolactinemia chronic 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 [facility] Work Phone: Reason for referral (narrative)No reason for [facility] Work Phone: Summary Purpose Family History [...] No September 07, 2018 7:38pm Power of Ceramist No September 07 9 7:38pm Advance Directive Response Recorded Date/ Time Living Will No February 13 022 11:21am Power of Ceramist No February 13, 2022 11:21am Advance Directive Response Recorded Date/ Time Living Will No March 05 3 9:59am Power of Ceramist No March 05 2 023 9:59am Advance Directive Response Recorded Date/ Time Living Will No March 05 3 10:59am Power of Ceramist No March 05 023 10:59am Advance Directive Response Recorded Date/ Time Living Will No March 05 10:59am Do you have a Healthcare Power of Ceramist? No March 05, 2022 10:59am Chief Complaint [...] section and content) DATE CREATED AUTHOR 04/04/2020 [facility] ([place]) DATE CREATED AUTHOR AUTHOR'S ORGANIZ ATION 10/22/2024 [facility] Goals (unrecognized section and content) [...] MD Family Provider Active Chani Khan NP, [employer]LL[employer]-C Primary Care Provider Active Team Status: Inactive Member Role Status Dates Chani Khan NP, [employer]CTION D[employer]LLER-C Primary Care Provider, Referri ng Provider Active Dr. Neris Ayala MD Attending Provider Active Team Status: Active Member Role Status Dates Chani Khan NP, [employer] D[employer]ER-C Primary Care Provider Active Dr. Neris Ayala MD Attending Pr ovidmichael, Referring Provider, Other Provider Active Team Status: Active Member Role Status Dates Dr. Stephen Black MD Primary Care Provider Active Dr. Kobi Calles MD Attending Provider Active Team Status: Active Member Role Status Dates Chani Khan NP, [employer] D[employer]ER-C Primary Care Provider Active Health Risk Assessment Attending Provider, Referring P kraig Active Team Status: Inactive Member Role Status Dates Chani Khan NP, [employer]ER-C Primary Care Provider Active Nhung Hatch NP-C Attending Provider, Referring Pr ovider Active Team Status: Inactive Member Role Status Dates Chani Bill [employer]STRUCTION DRILLER, [employer]-C Primary Care Provider Active Dr. Neris Ayala MD Attending Provider, Referr ing Provider Active Team Status: Active Member Role Status Dates Chani Khan NP, [employer]ER-C Primary Care Provider Active Dr. Davon Rae MD Attending Provider Active Dr. Neris Ayala MD Referring Provider Active Team Status: Inactive Member Role Status Dates Dr. Stephen Black MD Referring Provider Active Nhung Hatch NP-C Attending Provider Active Chani Khan CONSTRUCTION DRILLER, [employer]-C Primary Care Provider Active Team Status: Inactive Member Role Status Dates Chani Khan CONSTRUCTION DRILLER, [employer]-C Primary Care Provider Active Dr. Arnulfo Mishra MD Attending Provider, Referring Provi brianna Active Team Status: Inactive Member Role Status Dates Chani Khan CONSTRUCTION DRILLER, [employer]-C Primary Care Provider, Referri ng Provider Active Dr. Arnulfo Mishra MD Attending Provider Active Team Status: Inactive Member Role Status Dates Chani Khan CONSTRUCTION DRILLER, [employer]-C Primary Care Provider Active Start: June 10, 2024 End: June 10, 2024 Chani Khan CONSTRUCTION DRILLER, [employer] D[employer]ER-C Other Provider Active St art: June 10, 2024 End: June 10, 2024 Dr. Arnulfo Mishra MD Attending Provider Active Sta rt: June 10, 2024 End: June 10, 2024 Dr. Arnulfo Mishra MD Referring Provider Active Sta rt: June 10, 2024 End: June 10, 2024 Team Status: Inactive Member Role Status Dates Chani Khan CONSTRUCTION DRILLER, [employer]-C Primary Care Provider Active Start: June 12, 2024 End: June 12, 2024 Chani Khan CONSTRUCTION DRILLER, [employer]ER-C Referring Provider Active Start: June 12, 2024 End: June 12, 2024 Dr. Arnulfo Mishra MD Attending Provider Active Sta rt: June 12, 2024 End: June 12, 2024 Team Status: Active Member Role/Relationship Status Dates Dr. Stephen Black MD Family Provider Active Chani Khan CONSTRUCTION DRILLER, [employer] D[employer]LLER-C Primary Care Provider Active Team Status: Inactive Member Role/Relationship Status Dates Chani Khna CONSTRUCTION DRILLER, [employer] DRILLER-C Primary Care Provider Active Start: August 25, [...] BE BASED ON THE PRIMARY CLINICAL RECORDS. [facility] [employer] [facility]. provides no warranty or guarantee of the accuracy or completeness of information in this document.
[2024-11-20 10:58] LABS: Vitamin D,25 Hydroxy 28.4 ng/mL (30-100)
[2024-11-21 08:09] LABS: PROLACTIN 14.3 ng/mL (3.6-25.2)
== END | disposition home or self-care (01) ==
LOC: MTLAB 07:27
PROVIDERS: Internal Medicine Endocrinology, Diabetes & Metabolism; PCP Nurse Practitioner Primary Care; Referring Provider Nurse Practitioner Family; Visit Provider Nurse Practitioner Family
DX: E55.9 Vitamin D deficiency, unspecified (principal); N64.3 Galactorrhea not associated with childbirth
CPT/HCPCS: 36415; 82306; 84146

== ENCOUNTER 2024-12-29 07:06 | Emergency (ER) | payer OTHER, SELFPAY ==
[2024-12-29 07:06] VITALS: BP 171/84; PULSE 87; RESP 16; TEMP 36.7; O2SAT 98; BMI 38.9
--- NOTE | 2024-12-29 07:15 | CT_ITS ---
PROCEDURE: CT/Abdomen/Pelvis without Cont
--- NOTE | 2024-12-29 07:16 | EX.ED.DYSGE1 ---
HPI History of Present Illness Chief Complaint: Flank Pain Detail of Chief Complaint: Right flank pain Informant: patient Narrative Narrative: Patient presents with right-sided flank pain that started around 4 AM. Currently rates her pain an 8 out of 10. Denies nausea or vomiting. Denies fever. Remote history of kidney stones. Denies dysuria urgency or frequency. Denies hematuria. She has had prior cholecystectomy and prior hysterectomy. She denies any injury to her back. Denies any pain radiating down her legs. [facility] Medical History Pelvic floor dysfunction Kidney stones IBS (irritable bowel syndrome) Stroke UTI (urinary tract infection) Arthrosis Obesity Low iron Shortness of breath on exertion Streptococcus agalactiae infection Infection due to ESBL-producing Escherichia coli Wears glasses Cancer Anxiety Alcohol use Thyroid disease Gastric reflux Non-smoker Status post hysteroscopy Hyperprolactinemia Hypothyroidism Hyperlipidemia Female fertility problems Asthma Shoulder pain Home Medications ?Medication ?Instructions ?Recorded ?Last Taken ?Type fluticasone propionate 50 50 mcg intranasal DAILY PRN PRN 04/14/17 Unknown History mcg/actuation nasal allergy symptoms spray,suspension albuterol sulfate 90 mcg/actuation 1 - 2 puff inhalation Q4H PRN PRN 04/29/17 02/20/22 History aerosol inhaler Wheezing fluticasone propionate 230 2 puff inhalation BID 05/19/19 02/20/22 History mcg-salmeterol 21 mcg/actuation HFA inhaler (Advair HFA) lansoprazole 15 mg capsule,delayed 15 mg PO DAILY 02/20/22 02/20/22 History release levothyroxine 125 mcg tablet 125 mcg PO DAILY #90 tabs 06/12/24 Unknown Rx paroxetine mesylate(menop.sym) 7.5 7.5 mg PO QHS #30 caps 07/01/24 Unknown Rx mg capsule buspirone 10 mg tablet 10 mg PO BID 10/20/24 Unknown History cabergoline 0.5 mg tablet 0.5 mg PO .once a week #16 tabs 12/25/24 Unknown Rx hydrocodone-acetaminophen 5-325mg 1 tab PO Q4H PRN PRN Pain 2 days 12/29/24 Unknown Rx 5mg-325mg #15 TABLETS naproxen 500 mg tablet 500 mg PO BID #14 tabs 12/29/24 Unknown Rx ondansetron 4 mg disintegrating 4 mg PO Q8H PRN PRN Nausea #10 tabs 12/29/24 Unknown Rx tablet tamsulosin 0.4 mg capsule (Flomax) 0.4 mg PO DAILY #14 caps 12/29/24 Unknown Rx Allergy/AdvReac Type Severity Reaction Status Date / Time shellfish derived Allergy Angioedema Verified 12/29/24 07:07 amoxicillin (From Augmentin) AdvReac Diarrhea Verified 12/29/24 07:07 clavulanic acid (From AdvReac Diarrhea Verified 12/29/24 07:07 Augmentin) Family History Other A-fib Anxiety Asthma Blood clot associated with vein wall inflammation COPD (chronic obstructive pulmonary disease) Celiac disease Coagulation disorder Cystic fibrosis Endometriosis Heart disease Hypercholesterolemia Miscarriage Thyroid disorder Surgical History History of hysteroscopy H/O: hysterectomy History of [facility] History of D&C S/P laparoscopy Glomus tumor Hx of cholecystectomy Social History household members: spouse current occupational status: employed sexually active: Yes Smoking Status: Never smoker alcohol intake: current alcohol intake frequency: a few times a week Alcohol type: wine and hard liquor substance use type: does not use what type of physical activity do you participate in: none seatbelt use: always do you feel safe at home: Yes additional social history: - Registration at [facility] [place] [facility] ROS ROS ED Review of Systems ROS Unobtainable: other Constitutional Constitutional ED: Reports lethargy; Denies chills, fever(s), sweats or weight loss Eyes Eyes: Denies blurry vision, change in vision or diplopia ENT ENT ED: Denies rhinorrhea or sore throat Cardiovascular Cardiovascular: Denies chest pain, orthopnea or racing heartbeat Respiratory/Chest Respiratory/Chest: Denies cough, dyspnea, dyspnea on exertion, orthopnea or sputum Gastrointestinal Gastrointestinal: Denies abdominal pain, diarrhea, nausea or vomiting Genitourinary Genitourinary ED: Denies dysuria, hematuria or urinary frequency Musculoskeletal Musculoskeletal: Reports other Details: Right flank pain ; Denies arthralgias, back pain, myalgias or neck pain Integumentary Denies abscess, Abrasions or rash Neurologic Neurologic: Denies headache(s) or weakness Psychiatric Psychiatric: Denies anxiety, depression or suicidal thoughts Endocrine Endocrinology: Denies polydipsia, polyphagia or polyuria Hematologic/Lymphatic Hematologic/Lymphatic: Denies easy bleeding, easy bruising or lymphadenopathy Allergic/Immunologic Allergic/Immunologic ED: Denies mouth swelling, tongue swelling or urticaria EXAM Physical Exam Const Vital Signs: 12/29/24 07:06 Temperature 98.1 F Temperature Source Oral Pulse Rate 87 Respiratory Rate 16 Blood Pressure 171/84 H Blood Pressure Mean 113 Pulse Ox 98 Oxygen Delivery Method Room Air Positive well nourished and well developed General Appearance ED: well developed and NAD HEENT Reports TM's clear and moist mucous membranes normocephalic and atraumatic; Negative for trauma or tenderness Tympanic Membrane ED: Yes TM's clear Eyes PERRL and EOMs intact bilaterally General Eye ED: Negative for pale conjunctiva or scleral icterus Neck no lymphadenopathy, supple and no JVD General: Negative for tenderness Chest Wall inspection of chest normal and palpation of chest normal Chest: Negative for tenderness Resp normal respiratory effort and clear to auscultation bilaterally Effort and Inspection: Negative for respiratory distress or pain with movement Auscultation: Negative for rhonchi, wheezes or diminished lung sounds Cardio regular rate, regular rhythm, S1 normal heart sound, S2 normal heart sound and no murmurs Peripheral Pulses: pulses 2+ throughout GI normal to inspection, nondistended, normoactive bowel sounds, soft to palpation, non-tender, non-distended and no masses Back/Spine no thoracic nor lumbar tenderness; Negative for no CVA tenderness Back/Spine Narrative: Mild CVA tenderness on the right Extremity normal to inspection General Extremety ED: Negative for edema General Extremity: Negative for edema Neuro oriented x3, CN's II-XII intact bilaterally, no sensory deficits noted and gait normal Sensorium / Orientation: awake, alert, oriented to person, oriented to place and oriented to time Motor Exam: strength 5/5 throughout and strength abnormal Psych mental status grossly normal Skin no rashes or lesions noted and no wounds MDM MDM MDM Narrative Medical decision making narrative: Patient with right-sided flank pain with remote history of kidney stone. Clinically looks well. She was medicated with morphine as well as Zofran and Toradol. She good pain relief with that. Pain down was 3 out of 10. CBC with differential showed a white count 7.8 with hemoglobin 13.7 and platelet count of 308. Chemistries unremarkable. Urinalysis with greater than 100 RBCs. No signs of infection. Patient had a CT scan of the abdomen pelvis that showed multiple stones in the right and left kidneys. Patient had a 5 mm right mid ureter stone noted with mild hydro. Discussed case with Dr. Lisa Kamara who is patient's urologist. I was advised to start patient on Flomax. Will give patient urine strainers and pain medication for home. Vies return if worsening pain, fever, vomiting, or condition worsen anyway. Lab Data Attestation: I reviewed the patient's lab results. Labs: Laboratory Results - last 24 hr 12/29/24 07:27 WBC 7.8 RBC 4.54 Hgb 13.7 Hct 41.4 MCV 91.2 MCH 30.2 MCHC 33.1 RDW Std Deviation 42.6 RDW Coeff of Aleks 12.9 Plt Count 308 MPV 9.2 Immature Gran % (Auto) 0.300 Neut % (Auto) 49.6 Lymph % (Auto) 38.9 Yancey % (Auto) 6.2 Eos % (Auto) 4.6 Baso % (Auto) 0.4 Absolute Neuts (auto) 3.9 Absolute Lymphs (auto) 3.02 Nucleated RBC % 0 Sodium 144 Potassium 3.6 Chloride 108 Carbon Dioxide 24.9 Anion Gap 11 BUN 11 Creatinine 0.83 Estim Creat Clear Calc 98.14 Est GFR (MDRD) Non-Af 83 BUN/Creatinine Ratio 13.4 Glucose 119 H Calcium 9.9 Urine Color Yellow Urine Clarity Cloudy Urine pH 6.0 Ur Specific [place] 1.020 Urine Protein 100 H Urine Glucose (UA) Normal Urine Ketones Negative Urine Occult Blood 250 H Urine Nitrite Negative Urine Bilirubin Negative Urine Urobilinogen Normal Ur Leukocyte Esterase 500 H Urine RBC > 100 SEEN Urine WBC 0-5 SEEN Ur Squamous Epith Cells 0-5 SEEN Urine Bacteria 0 SEEN Urine Mucus 0 SEEN Radiography Diagnostic Testing: Clinical Impression(s) from Imaging Studies Abdomen/Pelvis CT 12/29/24 07:15 IMPRESSION: The liver shows low-density consistent with fatty infiltration or liver disease, Hounsfield units = 25. There are multiple nonobstructing stones in the right upper pole collecting system with the largest measuring 0.9 cm. There are multiple nonobstructing left renal stones with the largest measuring 0.3 cm in the midpole. There is mild dilation of the right ureter secondary to a 0.5 cm stone in the mid right ureter, image 125/211. Reading Location: [facility] Discharge Plan Triage Chief Complaint: Flank Pain ED Provider: Isma Bowman Dx/Rx/DC Orders Clinical Impression: Urolithiasis Instructions: ED Kidney Stone with Pain Prescriptions: New hydrocodone-acetaminophen 5-325 mg tablet 1 tab PO Q4H PRN PRN (Reason: Pain) 2 Days Qty: 15 0RF ondansetron 4 mg tablet,disintegrating 4 mg PO Q8H PRN PRN (Reason: Nausea) Qty: 10 0RF naproxen 500 mg tablet 500 mg PO BID Qty: 14 0RF tamsulosin [Flomax] 0.4 mg capsule 0.4 mg PO DAILY Qty: 14 0RF No Action fluticasone propionate 50 mcg/actuation spray,suspension 50 mcg INTRANASAL DAILY PRN PRN (Reason: allergy symptoms) Advair HFA 230-21 mcg/actuation HFA aerosol inhaler 2 puff INHALATION BID levothyroxine 125 mcg tablet 125 mcg PO DAILY Qty: 90 3RF cabergoline 0.5 mg tablet 0.5 mg PO .once a week Qty: 16 1RF buspirone 10 mg tablet 10 mg PO BID albuterol sulfate 1 INHALER inhaler 1 - 2 puff inhalation Q4H PRN PRN (Reason: Wheezing) lansoprazole 15 mg Capsule,Delayed Release(Dr/Ec) 15 mg PO DAILY paroxetine mesylate(menop.sym) 7.5 mg capsule 7.5 mg PO QHS Qty: 30 6RF Primary Care Provider: Chani Khan NP Referrals: Jacklyn Meza MD [Med Staff - Active Staff, Urology] - 3-5 Days Chani Khan NP, FOOD SERVICE DRIVER-C [Primary Care Provider, Family Practice] Print Language: [place] Disposition Disposition: Home, Self Care
[2024-12-29] MEDS: 0.9% Normal Saline (1000mL) 1,000 ML 150 ML IV (07:27)
[2024-12-29 07:35] LABS: Mucous, Urine 0 SEEN /hpf (<or=2+)
[2024-12-29 07:36] LABS: Hematocrit 41.4 % (37-47); Hemoglobin 13.7 g/dL (12.0-15.0); Immature Granulocytes Count 0.020 X10^3/uL (0.0-0.0); Mean Corp Hgb Conc 33.1 g/dL (32-36); Mean Corpuscular Volume 91.2 fL (81-99); Mean Platelet Vol. 9.2 fl (6.2-12.0); NRBC Flagged by Analyzer 0 % (0-5); Platelet Count 308 K/mm3 (150-450); RBC Distribution Width CV 12.9 % (11.6-14.6); RBC Distribution Width SD 42.6 fl (35.1-43.9); Red Blood Count 4.54 M/mm3 (4.2-5.4); White Blood Count 7.8 K/mm3 (4.4-11.0)
[2024-12-29 07:54] LABS: Color, Urine Yellow (Yellow); Glucose, Dipstick Normal (Normal); Ketone-Dipstick Negative (Negative); Leukocyte Esterase-Dipstick 500 /ul (Negative); Nitrite-Dipstick Negative (Negative); Occult Blood-Urine 250 /ul (Negative); Protein-Dipstick 100 mg/dl (Negative); Specific Gravity, Urine 1.020 (1.002-1.030); Urine Bilirubin Dipstick Negative (Negative)
[2024-12-29 08:01] LABS: Red Blood Cells-Urine > 100 SEEN /hpf (0-5); Squamous Epithelial Cells - UA 0-5 SEEN /hpf (5-10)
[2024-12-29 08:14] LABS: Anion Gap 11 (5-15); BUN 11 mg/dL (4-19); BUN/Creat Ratio 13.4 RATIO (10-20); Calcium,Total 9.9 mg/dL (7.6-11.0); Carbon Dioxide 24.9 mmol/L (21.0-32.0); Chloride 108 mmol/L (98-108); Estimated Creatinine Clearance 98.14 ml/min (50-250); Glucose 119 mg/dL (70-99); Potassium 3.6 mmol/L (3.3-5.1)
[2024-12-29] MEDS: Lidocaine 2% Viscous15 ML UDC 15 ML PO (08:36)
[2024-12-29 08:56] VITALS: BP 134/78; PULSE 78; RESP 16; TEMP 37.1; O2SAT 99
== END 2024-12-29 08:58 | disposition home or self-care (01) ==
PROVIDERS: Emergency Provider Emergency Medicine; PCP Nurse Practitioner Primary Care; Visit Provider Emergency Medicine
DX: N20.2 Calculus of kidney with calculus of ureter (principal); Z86.73 Personal history of transient ischemic attack (TIA), and cerebral infarction without residual deficits
CPT/HCPCS: 74176; 80048; 81001; 85025; 96374; 96375; 99284; A4216; J2405

== ENCOUNTER 2024-12-29 21:50 | Emergency (ER) | payer OTHER, SELFPAY ==
[2024-12-29 21:51] VITALS: BP 140/118; PULSE 92; RESP 18; TEMP 36.6; O2SAT 99; BMI 39.5
--- NOTE | 2024-12-29 22:23 | EX.ED.DYSGE1 ---
HPI History of Present Illness Chief Complaint: Flank Pain Informant: patient Onset/Context/Timing Onset: Today Timing: Continuous Quality: Aching Location: Right flank Worsened by: Sitting Relieved by: Standing Narrative Narrative: Patient presents with right flank pain that began today. Patient states that she was seen earlier today and was given morphine, Zofran, and Toradol. Patient states this helped with her pain. Patient states she was diagnosed with a right ureteral calculus. Patient was given prescription for hydrocodone which she has been taking with minimal relief. Patient denies any fevers or chills. Patient admits to some nausea but denies any vomiting. [facility] Medical History Pelvic floor dysfunction Kidney stones IBS (irritable bowel syndrome) Stroke UTI (urinary tract infection) Arthrosis Obesity Low iron Shortness of breath on exertion Streptococcus agalactiae infection Infection due to ESBL-producing Escherichia coli Wears glasses Cancer Anxiety Alcohol use Thyroid disease Gastric reflux Non-smoker Status post hysteroscopy Hyperprolactinemia Hypothyroidism Hyperlipidemia Female fertility problems Asthma Shoulder pain Home Medications ?Medication ?Instructions ?Recorded ?Last Taken ?Type fluticasone propionate 50 50 mcg intranasal DAILY PRN PRN 04/14/17 Unknown History mcg/actuation nasal allergy symptoms spray,suspension albuterol sulfate 90 mcg/actuation 1 - 2 puff inhalation Q4H PRN PRN 04/29/17 02/20/22 History aerosol inhaler Wheezing fluticasone propionate 230 2 puff inhalation BID 05/19/19 02/20/22 History mcg-salmeterol 21 mcg/actuation HFA inhaler (Advair HFA) lansoprazole 15 mg capsule,delayed 15 mg PO DAILY 02/20/22 02/20/22 History release levothyroxine 125 mcg tablet 125 mcg PO DAILY #90 tabs 06/12/24 Unknown Rx paroxetine mesylate(menop.sym) 7.5 7.5 mg PO QHS #30 caps 07/01/24 Unknown Rx mg capsule buspirone 10 mg tablet 10 mg PO BID 10/20/24 Unknown History cabergoline 0.5 mg tablet 0.5 mg PO .once a week #16 tabs 12/25/24 Unknown Rx hydrocodone-acetaminophen 5-325mg 1 tab PO Q4H PRN PRN Pain 2 days 12/29/24 Unknown Rx 5mg-325mg #15 TABLETS naproxen 500 mg tablet 500 mg PO BID #14 tabs 12/29/24 Unknown Rx ondansetron 4 mg disintegrating 4 mg PO Q8H PRN PRN Nausea #10 tabs 12/29/24 Unknown Rx tablet tamsulosin 0.4 mg capsule (Flomax) 0.4 mg PO DAILY #14 caps 12/29/24 Unknown Rx Allergy/AdvReac Type Severity Reaction Status Date / Time shellfish derived Allergy Angioedema Verified 12/29/24 21:51 amoxicillin (From Augmentin) AdvReac Diarrhea Verified 12/29/24 21:51 clavulanic acid (From AdvReac Diarrhea Verified 12/29/24 21:51 Augmentin) Family History Other A-fib Anxiety Asthma Blood clot associated with vein wall inflammation COPD (chronic obstructive pulmonary disease) Celiac disease Coagulation disorder Cystic fibrosis Endometriosis Heart disease Hypercholesterolemia Miscarriage Thyroid disorder Surgical History History of hysteroscopy H/O: hysterectomy History of [facility] History of D&C S/P laparoscopy Glomus tumor Hx of cholecystectomy Social History household members: spouse current occupational status: employed sexually active: Yes Smoking Status: Never smoker alcohol intake: current alcohol intake frequency: a few times a week Alcohol type: wine and hard liquor substance use type: does not use what type of physical activity do you participate in: none seatbelt use: always do you feel safe at home: Yes additional social history: - Registration at [facility] ER ROS ROS ED Constitutional Constitutional ED: Denies chills or fever(s) Eyes Eyes: Denies blurry vision or change in vision ENT ENT ED: Denies rhinorrhea or sore throat Cardiovascular Cardiovascular: Denies chest pain or palpitations Respiratory/Chest Respiratory/Chest: Denies cough or dyspnea Gastrointestinal Gastrointestinal: Reports nausea; Denies vomiting Genitourinary Genitourinary ED: Reports hematuria; Denies dysuria Musculoskeletal Musculoskeletal: Reports back pain; Denies neck pain Integumentary Denies abscess or rash Neurologic Neurologic: Denies headache(s) or weakness Allergic/Immunologic Allergic/Immunologic ED: Denies mouth swelling or urticaria EXAM Physical Exam Const Vital Signs: 12/29/24 21:51 Temperature 97.8 F Temperature Source Temporal Pulse Rate 92 Respiratory Rate 18 Blood Pressure 140/118 H Blood Pressure Mean 125 Pulse Ox 99 Oxygen Delivery Method Room Air Positive well nourished and well developed Constitutional Narrative: BMI is 39.5. General Appearance ED: well developed and NAD HEENT Reports moist mucous membranes Neck supple and no JVD Resp normal respiratory effort and clear to auscultation bilaterally Cardio regular rate and regular rhythm GI non-tender and non-distended Palpation: soft Back/Spine General Back: CVA tenderness right Neuro oriented x3, CN's II-XII intact bilaterally and no sensory deficits noted Sensorium / Orientation: alert Motor Exam: strength 5/5 throughout Psych mental status grossly normal MDM MDM MDM Narrative Medical decision making narrative: Patient was seen here earlier today and was diagnosed with a right ureteral calculus. This measured approximately 5 mm. I do not feel any imaging or lab work needs to be repeated at this time. Treatment and Re-Evaluation :: Patient was given IV fluids, morphine, Zofran, and Toradol. Patient was feeling better after this. Patient was instructed to continue the hydrocodone as prescribed. Patient was instructed drink plenty of fluids. Patient was advised she could also take ibuprofen with the hydrocodone. Patient was instructed to return if worse in any way. Patient understood and was agreeable with the plan. All questions were answered. Discharge Plan Triage Chief Complaint: Flank Pain ED Provider: Russell Griffin Dx/Rx/DC Orders Clinical Impression: Calculus of right ureter, Hyperprolactinemia Instructions: ED Kidney Stone with Pain Prescriptions: No Action fluticasone propionate 50 mcg/actuation spray,suspension 50 mcg INTRANASAL DAILY PRN PRN (Reason: allergy symptoms) Advair HFA 230-21 mcg/actuation HFA aerosol inhaler 2 puff INHALATION BID levothyroxine 125 mcg tablet 125 mcg PO DAILY Qty: 90 3RF cabergoline 0.5 mg tablet 0.5 mg PO .once a week Qty: 16 1RF buspirone 10 mg tablet 10 mg PO BID albuterol sulfate 1 INHALER inhaler 1 - 2 puff inhalation Q4H PRN PRN (Reason: Wheezing) lansoprazole 15 mg Capsule,Delayed Release(Dr/Ec) 15 mg PO DAILY hydrocodone-acetaminophen 5-325 mg tablet 1 tab PO Q4H PRN PRN (Reason: Pain) 2 Days Qty: 15 0RF ondansetron 4 mg tablet,disintegrating 4 mg PO Q8H PRN PRN (Reason: Nausea) Qty: 10 0RF naproxen 500 mg tablet 500 mg PO BID Qty: 14 0RF tamsulosin [Flomax] 0.4 mg capsule 0.4 mg PO DAILY Qty: 14 0RF paroxetine mesylate(menop.sym) 7.5 mg capsule 7.5 mg PO QHS Qty: 30 6RF Primary Care Provider: Chani Khan NP Referrals: Jacklyn Meza MD [Med Staff - Active Staff, Urology] - 3-5 Days Chani Khan NP, UTILITY ENGINEER-C [Primary Care Provider, Family Practice] Print Language: [place] Disposition Disposition: Home, Self Care
[2024-12-29] MEDS: 0.9% Normal Saline (1000mL) 1,000 ML 1000 ML IV (22:33)
[2024-12-29 23:37] VITALS: BP 136/79; PULSE 92; RESP 18; TEMP 36.6; O2SAT 99
== END 2024-12-30 00:07 | disposition home or self-care (01) ==
PROVIDERS: Emergency Provider Emergency Medicine; PCP Nurse Practitioner Primary Care; Visit Provider Emergency Medicine
DX: N20.1 Calculus of ureter (principal); E22.1 Hyperprolactinemia; Z86.73 Personal history of transient ischemic attack (TIA), and cerebral infarction without residual deficits
CPT/HCPCS: 96361; 96374; 96375; 96376; 99283; A4216; J2405

== ENCOUNTER 2024-12-30 09:04 | Emergency (ER) | payer OTHER, SELFPAY ==
[2024-12-30 09:05] VITALS: BP 156/82; PULSE 73; RESP 18; TEMP 37; O2SAT 97; BMI 39.4
--- NOTE | 2024-12-30 09:52 | ED.VIS.FEGU ---
HPI HPI - Female History of Present Illness Chief Complaint: Flank Pain Narrative Narrative: Chief complaint and HPI: 54-year-old female with past medical history of IBS, urolithiasis, HLD, hypothyroidism, asthma presents for evaluation of right flank pain. History taken by patient as well as medical record. Patient was seen in our emergency department twice yesterday for same complaint. On chart review, had a CT abdomen pelvis that showed a 5 mm right mid ureteral stone noted with mild hydro. Was ultimately discharged home on Flomax, Pitts, Zofran, naproxen. She returned later in the evening due to pain in which she was treated with Toradol and morphine. Ultimately discharged home with follow-up with urology. Patient states she has yet to start the Flomax. She has been taking the pain medicine with little relief. States she has developed some suprapubic pain and dysuria today. Denies any fever, chills, nausea, vomiting, diarrhea. Follows with Dr. Meza with urology. Review of systems: See HPI Medications: As listed on the chart Allergies: As listed on the chart PFSH: Per chart Vital signs: As listed on the chart. Reviewed. Physical exam: Gen: A&O x3, NAD Head: Normocephalic, atraumatic Eyes: No sclera icterus, conjunctiva clear ENT: Moist mucous membranes CV: RRR, no murmurs Resp: Lungs CTA BL, no w/r/c GI: Abd soft, non-distended, non-tender, no r/r/g : No CVA tenderness Musc: Full ROM, no deformity Skin: Warm, dry Psych: Cooperative, appropriate mood and affect PFSH PFSH Medical History Pelvic floor dysfunction Kidney stones IBS (irritable bowel syndrome) Stroke UTI (urinary tract infection) Arthrosis Obesity Low iron Shortness of breath on exertion Streptococcus agalactiae infection Infection due to ESBL-producing Escherichia coli Wears glasses Cancer Anxiety Alcohol use Thyroid disease Gastric reflux Non-smoker Status post hysteroscopy Hyperprolactinemia Hypothyroidism Hyperlipidemia Female fertility problems Asthma Shoulder pain Home Medications ?Medication ?Instructions ?Recorded ?Last Taken ?Type fluticasone propionate 50 50 mcg intranasal DAILY PRN PRN 04/14/17 Unknown History mcg/actuation nasal allergy symptoms spray,suspension albuterol sulfate 90 mcg/actuation 1 - 2 puff inhalation Q4H PRN PRN 04/29/17 02/20/22 History aerosol inhaler Wheezing fluticasone propionate 230 2 puff inhalation BID 05/19/19 02/20/22 History mcg-salmeterol 21 mcg/actuation HFA inhaler (Advair HFA) lansoprazole 15 mg capsule,delayed 15 mg PO DAILY 02/20/22 02/20/22 History release levothyroxine 125 mcg tablet 125 mcg PO DAILY #90 tabs 06/12/24 Unknown Rx paroxetine mesylate(menop.sym) 7.5 7.5 mg PO QHS #30 caps 07/01/24 Unknown Rx mg capsule buspirone 10 mg tablet 10 mg PO BID 10/20/24 Unknown History cabergoline 0.5 mg tablet 0.5 mg PO .once a week #16 tabs 12/25/24 Unknown Rx hydrocodone-acetaminophen 5-325mg 1 tab PO Q4H PRN PRN Pain 2 days 12/29/24 Unknown Rx 5mg-325mg #15 TABLETS naproxen 500 mg tablet 500 mg PO BID #14 tabs 12/29/24 Unknown Rx ondansetron 4 mg disintegrating 4 mg PO Q8H PRN PRN Nausea #10 tabs 12/29/24 Unknown Rx tablet tamsulosin 0.4 mg capsule (Flomax) 0.4 mg PO DAILY #14 caps 12/29/24 Unknown Rx Allergy/AdvReac Type Severity Reaction Status Date / Time shellfish derived Allergy Angioedema Verified 12/29/24 21:51 amoxicillin (From Augmentin) AdvReac Diarrhea Verified 12/29/24 21:51 clavulanic acid (From AdvReac Diarrhea Verified 12/29/24 21:51 Augmentin) Family History Other A-fib Anxiety Asthma Blood clot associated with vein wall inflammation COPD (chronic obstructive pulmonary disease) Celiac disease Coagulation disorder Cystic fibrosis Endometriosis Heart disease Hypercholesterolemia Miscarriage Thyroid disorder Surgical History History of hysteroscopy H/O: hysterectomy History of LAVH History of D&C S/P laparoscopy Glomus tumor Hx of cholecystectomy Social History household members: spouse current occupational status: employed sexually active: Yes Smoking Status: Never smoker alcohol intake: current alcohol intake frequency: a few times a week Alcohol type: wine and hard liquor substance use type: does not use what type of physical activity do you participate in: none seatbelt use: always do you feel safe at home: Yes additional social history: - Registration at [facility] ER EXAM Physical Exam Const Vital Signs: 12/30/24 09:05 12/30/24 11:04 Temperature 98.6 F Temperature Source Oral Pulse Rate 73 69 Respiratory Rate 18 Blood Pressure 156/82 H 144/7 H Blood Pressure Mean 106 52 Pulse Ox 97 Oxygen Delivery Method Room Air MDM MDM MDM Narrative Medical decision making narrative: 54-year-old female with past medical history of IBS, urolithiasis, HLD, hypothyroidism, asthma presents for evaluation of right flank pain. History taken by patient as well as medical record. Patient was seen in our emergency department twice yesterday for same complaint. On chart review, had a CT abdomen pelvis that showed a 5 mm right mid ureteral stone noted with mild hydro. Was ultimately discharged home on Flomax, Pitts, Zofran, naproxen. She returned later in the evening due to pain in which she was treated with Toradol and morphine. Ultimately discharged home with follow-up with urology. Patient states she has yet to start the Flomax. She has been taking the pain medicine with little relief. I did review both of the emergency medicine notes, the laboratory results, and CT abdomen pelvis. Differential diagnosis includes but is not limited to urolithiasis, UTI, electrolyte abnormality, hydronephrosis. NS bolus, Toradol, morphine, Zofran ordered for symptoms. Will repeat laboratory workup and CT abdomen pelvis for reevaluation. CBC without leukocytosis or anemia. BMP without TERESA. UA positive for blood and leuk esterase but negative for nitrites, WBCs, bacteria. CT abdomen pelvis shows diffuse fatty liver. No change in bilateral renal calculi. Mild right hydronephrosis related to calculus in the ureter. Has progressed to the UVJ. 5.3 mm. On reevaluation, patient's pain has resolved. She was given the option of admission given this is her third visit for pain control versus discharge home. She would like to discharge home given that the stone is at the UVJ and her pain has resolved. I do think this is appropriate. Follow-up with urology. Will write her for more pain medicine. Asking for a different antiemetic prescription. Return precautions explained. She confirmed understand the plan. Patient stable to discharge home. Impression: 1. Urolithiasis 2. Right mild hydronephrosis Lab Data Labs: Laboratory Results - last 24 hr 12/30/24 12/30/24 10:20 10:23 WBC 6.5 RBC 4.32 Hgb 12.8 Hct 41.0 MCV 94.9 MCH 29.6 MCHC 31.2 L D RDW Std Deviation 44.8 H RDW Coeff of Aleks 12.8 Plt Count 234 MPV 9.3 Immature Gran % (Auto) 0.300 Neut % (Auto) 62.3 Lymph % (Auto) 25.5 [place] % (Auto) 6.7 Eos % (Auto) 4.6 Baso % (Auto) 0.6 Absolute Neuts (auto) 4.1 Absolute Lymphs (auto) 1.66 Nucleated RBC % 0 Sodium 140 Potassium 4.1 Chloride 109 H Carbon Dioxide 19.3 L Anion Gap 12 BUN 9 Creatinine 0.89 Estim Creat Clear Calc 92.13 Est GFR (MDRD) Non-Af 77 BUN/Creatinine Ratio 10.6 Glucose 101 H Calcium 9.2 Urine Color Yellow Urine Clarity Sl. Cloudy Urine pH 5.0 Ur Specific Joffre 1.025 Urine Protein 30 H Urine Glucose (UA) Normal Urine Ketones Negative Urine Occult Blood 250 H Urine Nitrite Negative Urine Bilirubin Negative Urine Urobilinogen Normal Ur Leukocyte Esterase 100 H Urine RBC 0 SEEN Urine WBC 0-5 SEEN Ur Squamous Epith Cells 0-5 SEEN Urine Bacteria 0 SEEN Urine Mucus 0 SEEN Radiography Diagnostic Testing: Clinical Impression(s) from Imaging Studies Abdomen/Pelvis CT 12/30/24 10:40 IMPRESSION: 1. Diffuse fatty liver. 2. No change in bilateral renal calculi. Mild right hydronephrosis related to calculus in the ureter. This has progressed to the ureterovesical junction, UVJ. Reading Location: [facility] Discharge Plan Triage Chief Complaint: Flank Pain ED Provider: Truong Chen Dx/Rx/DC Orders Prescriptions: No Action fluticasone propionate 50 mcg/actuation spray,suspension 50 mcg INTRANASAL DAILY PRN PRN (Reason: allergy symptoms) Advair HFA 230-21 mcg/actuation HFA aerosol inhaler 2 puff INHALATION BID levothyroxine 125 mcg tablet 125 mcg PO DAILY Qty: 90 3RF cabergoline 0.5 mg tablet 0.5 mg PO .once a week Qty: 16 1RF buspirone 10 mg tablet 10 mg PO BID albuterol sulfate 1 INHALER inhaler 1 - 2 puff inhalation Q4H PRN PRN (Reason: Wheezing) lansoprazole 15 mg Capsule,Delayed Release(Dr/Ec) 15 mg PO DAILY hydrocodone-acetaminophen 5-325 mg tablet 1 tab PO Q4H PRN PRN (Reason: Pain) 2 Days Qty: 15 0RF ondansetron 4 mg tablet,disintegrating 4 mg PO Q8H PRN PRN (Reason: Nausea) Qty: 10 0RF naproxen 500 mg tablet 500 mg PO BID Qty: 14 0RF tamsulosin [Flomax] 0.4 mg capsule 0.4 mg PO DAILY Qty: 14 0RF paroxetine mesylate(menop.sym) 7.5 mg capsule 7.5 mg PO QHS Qty: 30 6RF Primary Care Provider: Chani Khan NP Referrals: Chani Khan NP, [employer] [Primary Care Provider, Family Practice] Print Language: Tunisian
[2024-12-30] MEDS: 0.9% Normal Saline (1000mL) 1,000 ML 999 ML IV (10:22)
[2024-12-30] MEDS: Ketorolac 30 MG/ML Syringe IV (10:22)
--- NOTE | 2024-12-30 10:40 | CT_ITS ---
PROCEDURE: CT/Abdomen/Pelvis without Cont
[2024-12-30 10:43] LABS: Mucous, Urine 0 SEEN /hpf (<or=2+); Red Blood Cells-Urine 0 SEEN /hpf (0-5)
[2024-12-30 10:43] LABS: Hematocrit 41.0 % (37-47); Hemoglobin 12.8 g/dL (12.0-15.0); Immature Granulocytes Count 0.020 X10^3/uL (0.0-0.0); Mean Corp Hgb Conc 31.2 g/dL (32-36); Mean Corpuscular Volume 94.9 fL (81-99); Mean Platelet Vol. 9.3 fl (6.2-12.0); NRBC Flagged by Analyzer 0 % (0-5); Platelet Count 234 K/mm3 (150-450); RBC Distribution Width CV 12.8 % (11.6-14.6); RBC Distribution Width SD 44.8 fl (35.1-43.9); Red Blood Count 4.32 M/mm3 (4.2-5.4); White Blood Count 6.5 K/mm3 (4.4-11.0)
[2024-12-30 10:46] LABS: Color, Urine Yellow (Yellow); Glucose, Dipstick Normal (Normal); Ketone-Dipstick Negative (Negative); Leukocyte Esterase-Dipstick 100 /ul (Negative); Nitrite-Dipstick Negative (Negative); Occult Blood-Urine 250 /ul (Negative); Protein-Dipstick 30 mg/dl (Negative); Specific Gravity, Urine 1.025 (1.002-1.030); Urine Bilirubin Dipstick Negative (Negative)
[2024-12-30 10:53] LABS: Squamous Epithelial Cells - UA 0-5 SEEN /hpf (5-10)
[2024-12-30 11:04] VITALS: BP 144/7; PULSE 69
[2024-12-30 11:44] LABS: Anion Gap 12 (5-15); BUN 9 mg/dL (4-19); BUN/Creat Ratio 10.6 RATIO (10-20); Calcium,Total 9.2 mg/dL (7.6-11.0); Carbon Dioxide 19.3 mmol/L (21.0-32.0); Chloride 109 mmol/L (98-108); Estimated Creatinine Clearance 92.13 ml/min (50-250); Glucose 101 mg/dL (70-99); Potassium 4.1 mmol/L (3.3-5.1)
[2024-12-30 13:16] VITALS: BP 137/76; PULSE 76; RESP 16; TEMP 36.4; O2SAT 100
== END 2024-12-30 13:20 | disposition home or self-care (01) ==
PROVIDERS: Emergency Provider Surgery; PCP Nurse Practitioner Primary Care; Visit Provider Surgery
DX: N13.2 Hydronephrosis with renal and ureteral calculous obstruction (principal); Z86.73 Personal history of transient ischemic attack (TIA), and cerebral infarction without residual deficits
CPT/HCPCS: 74176; 80048; 81001; 85025; 96374; 96375; 99282; A4216; J2405